=== PATIENT | male | born 1955 | race Caucasian/White ===

== ENCOUNTER → 2023-12-25 04:00 | Outpatient (REF) | payer MEDICARE, OTHER, SELFPAY | LOC: DHSLP 04:00 | PROVIDERS: ATTENDING PHYSICIAN Internal Medicine | DX: G47.33 Obstructive sleep apnea (adult) (pediatric) (principal) | CPT/HCPCS: 95800 ==

== ENCOUNTER 2025-05-27 09:17 | Inpatient (IN) | payer MEDICARE, OTHER, SELFPAY ==
[2025-05-26 23:50] VITALS: BP 157/100
[2025-05-27] VITALS (38 sets, daily range): BP systolic 98–142; BP diastolic 55–99; BMI 34.9; BMI 32.3; BMI 32.4
[2025-05-27] MEDS: CARDIZEM 125 IV (00:22)
[2025-05-27] MEDS: CARDIZEM 20 MG IV (00:22)
[2025-05-27 00:29] LABS: % Basophils 0.3 % (0-2); % Eosinophils 1.5 % (0-6); % Immature Granulocytes 1.6 % (0-0.5); % Lymphocytes 21.9 % (20.5-51.1); % Monocytes 6.7 % (1.7-9.3); Absolute Eosinophils 0.2 10^3/uL (0-0.7); Absolute Immature Granulocytes 0.2 10^3/uL (0-0.05); Absolute Lymphocytes 2.8 10^3/uL (1.2-3.4); Absolute Monocytes 0.9 10^3/uL (0.1-0.6); Absolute Neutrophils 8.8 10^3/uL (1.4-6.5); Hematocrit 45.5 % (39.0-52.0); Hemoglobin 14.8 g/dL (13.0-18.0); Mean Corp Hgb Conc. 32.5 g/dL (33.0-37.0); Mean Corpuscular Hgb 24.7 pg (27.0-31.0); Mean Corpuscular Volume 76.1 fL (80.0-94.0); Nucleated Red Blood Cells % 0 % (-); Platelet Count 289 10^3/uL (130-400); Red Blood Cell Count 5.98 10^6/uL (4.70-6.10); Red Cell Dist. Width 18.6 % (11.5-14.5); White Blood Cell Count 12.9 10^3/uL (4.8-10.8)
[2025-05-27 00:44] LABS: ALT (SGPT) 30 U/L (0-50); AST (SGOT) 37 U/L (17-59); Albumin 4.6 g/dl (3.5-5.0); Alkaline Phosphatase 78 U/L (38-126); Blood Urea Nitrogen 18 mg/dl (9-20); Calcium 9.5 mg/dl (8.4-10.2); Carbon Dioxide 20 mmol/L (22-30); Chloride 108 mmol/L (98-107); Glucose 143 mg/dl (70-99); Potassium 4.1 mmol/L (3.5-5.1); Sodium 139 mmol/L (135-145); Total Bilirubin 0.8 mg/dl (0.2-1.3); Total Protein 7.3 g/dl (6.3-8.2); eGFR > 60.00
[2025-05-27 00:56] LABS: NT-proBNP 472 pg/ml; Troponin I 0.027 ng/ml
[2025-05-27 01:13] LABS: TSH 6.88 uIU/ml (0.47-4.68)
[2025-05-27] MEDS: CARDIZEM 25 MG IV (01:46)
--- NOTE | 2025-05-27 02:49 | ED.GENMED ---
History of Present Illness
General
Chief Complaint: Breathing Problem
Source: patient and family
Exam Limitations: none
Time Seen by Provider: 05/27/25 00:19
Nursing documentation reviewed up to this point in time: agreed with
History of Present Illness
History of Present Illness:
This is a 70-year-old gentleman who has history of CAD, prior history of PTCA with stent, history of hypertension, hyperlipidemia, COPD. History of AAA currently being monitored with most recent ultrasound February of this year reportedly measuring
4.6 cm.
He and his recently returned tonight from a trip to [place]. They traveled by train and bus. He returned around 9:30 PM and shortly after returning home he developed some shortness of breath accompanied with mid upper chest discomfort radiating
to his anterior neck. No history of similar episodes in the past.
He denies leg pain or swelling. No cough, no weakness nor numbness.
Upon arrival to the ED EKG shows A-fib with rapid ventricular response. Patient has been told that he occasionally has an irregular heartbeat but no definitive previous episodes of atrial fibrillation.
He denies alcohol use.
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 Spicer. Next appointment due June of this year.
Past History
Past History
ED Past Medical History: CAD, COPD, HTN, Hypercholesterolemia and Other (Abdominal aortic aneurysm being monitored with ultrasounds. 4.6 cm February 2025); Negative IDDM or NIDDM
ED Past Surgical History: Cardiac (PTCA with stent 2011) and Orthopedic
Social History
Tobacco: Former smoker (Quit [phone])
Alcohol: Occasional
Drug: None
Personal:
Living: with family
Employment: Retired
Family History
Family History: Other (Noncontributory)
Phy Exam
Physical Exam
Physical Exam:
GENERAL: Alert , in no apparent distress
EYE: pupils equal and reactive
NECK: Supple, no significant adenopathy.
ENT: o/p clr, mmm.
CARDIAC: Irregularly irregular, tachycardic
LUNGS: Clear breath sounds bilaterally, no acute respiratory distress,
ABDOMEN: Soft, without focal tenderness, no r/g, no cvat
NEUROLOGICAL: Alert and oriented, no focal neuro deficits
SKIN: Warm and dry, skin intact.
MUSCULOSKELETAL: No edema, well perfused.
PSYCH: Normal and appropriate interaction.
Scores
Heart Failure Risk
Heart Failure Risk Score: Not Applicable
Course
Orders/Labs/Results
Orders:
Orders
05/26/25 23:43
Troponin I Urgent
05/27/25 00:17
Complete Blood Count/With Diff Urgent
Comprehensive Metabolic Panel Urgent
Free T4 Urgent
Comment: ADDED
NT-proBNP Urgent
TSH Urgent
05/27/25 00:20
Diltiazem 125 mg/125 ml Nss [Cardizem] 125 mg in 125 ml .ROUTE .STK-MED
Diltiazem 125 mg/125 ml Nss [Cardizem] 125 mg in 125 ml IV NOW
Initial dose in mg/hr, then titrate:: 10
Titrate to keep:: Heart rate 80-100 bpm
Titrate by mg/hr:: 5 mg/hr
Frequency of titrations (minutes):: 15
Maximum dose in mg/hr:: 15
Diltiazem HCl [Cardizem] 20 mg IV NOW STA
Diltiazem HCl [Cardizem] 25 mg .ROUTE .STK-MED ONE
05/27/25 01:35
Add On- LAB Urgent
Tests Added?: free T4
05/27/25 01:37
Diltiazem HCl [Cardizem] 25 mg .ROUTE .STK-MED ONE
05/27/25 01:45
Diltiazem HCl [Cardizem] 25 mg IV NOW STA
05/27/25 03:08
Troponin I Urgent
05/27/25 04:09
0.9% Sodium Chloride 500 ml [Nss] 500 ml IV BOLUS
05/27/25 04:18
Propofol [Diprivan] 20 ml .ROUTE .STK-MED
05/27/25 05:06
Add On- LAB Urgent
Tests Added?: free t4
05/27/25 05:07
EKG [Electrocardiogram (*1)] Urgent
Reason for Study: Palpitations
Other Reason for Exam: post conversion from a fib
EKG- Treatment ONCE
05/27/25 05:18
Troponin I Urgent
05/27/25 06:00
0.9% Sodium Chloride 500 ml [Nss] 500 ml IV Wide Open mls/hr
Abnormal Lab Results
05/27/25 05/27/25 05/27/25
00:17 03:08 05:18
WBC 12.9 H 10^3/uL
(4.8-10.8)
MCV 76.1 L fL
(80.0-94.0)
MCH 24.7 L pg
(27.0-31.0)
MCHC 32.5 L g/dL
(33.0-37.0)
RDW 18.6 H %
(11.5-14.5)
Abs Immat Gran (auto) 0.2 H 10^3/uL
(0-0.05)
Absolute Neuts (auto) 8.8 H 10^3/uL
(1.4-6.5)
Absolute Monos (auto) 0.9 H 10^3/uL
(0.1-0.6)
Immature Gran % 1.6 H %
(0-0.5)
Chloride 108 H mmol/L
(98-107)
Carbon Dioxide 20 L mmol/L
(22-30)
Glucose 143 H mg/dl
(70-99)
Troponin I 0.077 H* D ng/ml 0.159 H* D ng/ml
TSH 6.88 H uIU/ml
(0.47-4.68)
05/27/25 00:17
05/27/25 00:17
Vital Signs
Initial and Last Documented VS:
Initial Vital Signs
Temp Pulse Resp BP Pulse Ox
98.4 F 157 18 157/100 98
05/26/25 23:50 05/26/25 23:50 05/26/25 23:50 05/26/25 23:50 05/26/25 23:50
Last Documented Vital Signs
Temp Pulse Resp BP Pulse Ox
98.4 F 44 16 132/75 94
05/26/25 23:50 05/27/25 06:15 05/27/25 06:15 05/27/25 06:15 05/27/25 06:15
MDM/Problems Addressed
Differential Diagnosis Includes:
Patient presents with PAF with rapid ventricular response, symptomatic with shortness of breath, substernal chest discomfort radiating to his anterior neck.
Overall well in appearance, hemodynamically stable.
Concern for coronary ischemia related to A-fib with rapid ventricular response.
Lungs are clear to auscultation, CHF is unlikely.
Symptoms appear acute in nature, no history of thromboembolism, No leg pain or swelling thus PE is unlikely.
Labs are pending including troponin. Will add TSH, BNP.
Will initiate IV Cardizem bolus and drip for rate control.
To consider cardioversion if patient does not spontaneously convert to normal sinus rhythm.
*Pulse Oximetry
SaO2: 91
Oxygen Mode of Delivery: Room air
Patient hypoxic: no
*EKG
Interpreted by ED Provider?: Yes
Interpretation: abnormal
Comparison EKG: changes noted (Atrial fibrillation with rapid ventricular response is new compared to previous EKG July 2023 showing normal sinus rhythm)
Rate: tachycardiac
Rhythm: a-fib
[place]: normal axis
Interval: normal QT interval
QRS Pattern: normal QRS
Ischemia: non-specific ST changes (Minimal ST depression anterolaterally)
*Rewrite Editor Interpretation
Rate: tachycardiac
Interpretation: abnormal
Rhythm: a-fib
*Critical Care Note
Total Time (30-74mins, 75-104mins- exclusive of procedures): 40
comment:
Critical care statement: A total of 40 minutes of critical care time was provided for this patient. This includes management of unstable vital signs, evaluation of the patient at bedside, reviewing the patient's pertinent medical records, discussion
with consultants, review of old EKGs and review of pertinent medical records. This time with separate from time utilized to perform the aforementioned documented procedures
Update Note
Update Note:
Chest pain improved with improvement in A-fib rate but atrial fibrillation has persisted despite IV Cardizem titration and repeat bolus.
Initial plan was for electrical cardioversion but patient has spontaneously converted prior to this procedure. IV Cardizem promptly discontinued.
He remains in sinus bradycardia. Hemodynamically stable and no further chest discomfort.
Troponin has trended up from 0.027 to 0.077. Awaiting repeat troponin and will continue to monitor.
TSH minimally elevated 6.88 but free T4 is normal. BNP is normal.
06:40
Troponin continues to trend up, 0.159. Concern for ACS versus rate related uptrend in troponin.
Due to continued rise in troponin will admit to hospital service and consult cardiology.
Patient remains in sinus bradycardia. Remains hemodynamically stable and chest pain-free since spontaneously converting.
ED Attending Note
-
Portions of this chart may have been created with voice recognition software.� Occasional wrong word or��sound alike� substitutions may have occurred due to the inherent limitations of voice recognition software.
Discharge Plan
Departure
Patient Disposition: Admit
Date of Disposition: 05/27/25
Time of Disposition: 07:08
Admit to: Telemetry
Presentation/result/management discussed w/ accepting MD/DO: Hospitalist
Discharge Problem:
New onset A-fib with RVR, ACS (acute coronary syndrome)
Prescriptions:
No Action
lisinopril 10 MG tablet
10 mg PO DAILY
nitroglycerin 0.4 MG tablet, sublingual
0.4 mg sublingual [id number] PRN (Reason: chest pain)
multivitamin [Multi-Day] 1 EACH tablet
1 ea PO DAILY
atorvastatin 20 MG tablet
20 mg PO QPM
trazodone 50 mg Tablet
25 mg PO HS
aspirin 81 mg Tablet
81 mg PO DAILY
coenzyme Q10 [CoQ-10] 100 mg Capsule
100 mg PO DAILY
cholecalciferol (vitamin D3) [Vitamin D3] 25 mcg (1,000 unit) Tablet
25 mcg PO DAILY
mecobalamin (vitamin B12) [B12 Active] 1,000 mcg Tablet,Chewable
1,000 mcg PO DAILY
omeprazole 40 mg capsule,delayed release(DR/EC)
40 mg PO BID Qty: 60 0RF
Brestry
2 puff inhalation BID
Referrals:
Nancy Martell CRNP [Family Provider, Family Practice]
Interventions
Interventions:
*Risk Screen - Suicide Last Done: 05/26/25 23:50
*General Assessment Last Done: 05/26/25 23:50
*Neglect/Abuse Screening Last Done: 05/26/25 23:50
*ED- Fall Risk Assessment Last Done: 05/27/25 01:07
*ED COVID-19 Vaccine History Last Done: 05/27/25 01:07
ED- Cardiac Assessment Last Done: 05/27/25 03:40
ED- Pulmonary Assessment Last Done: 05/27/25 03:40
Discharge Date and Time
Print Language: SAMI
[2025-05-27 03:46] LABS: Troponin I 0.077 ng/ml
[2025-05-27] MEDS: NSS 500 IV ×2 (04:10→04:50)
[2025-05-27 05:58] LABS: Troponin I 0.159 ng/ml
--- NOTE | 2025-05-27 08:03 | HPS.HSE ---
Family Physician
-
Family Physician: Nancy Martell
Chief Complaint
-
Dyspnea
History of Present Illness
Patient is a 70-year-old male with past medical history of coronary artery disease with history of stent, essential hypertension, hyperlipidemia, COPD, history of herniated disc, history of right THR came to ER with new onset of dyspnea and some
chest discomfort. Patient was traveling back to home and was on train/bus ride for few hours. By the time patient was back home noticed new onset of dyspnea and some associated shortness of breath. Some dry cough no fever. No palpitations or
dizziness noted. Patient came to ER for further evaluation where patient was noted to be in A-fib which patient later converted to sinus bradycardia with IV diltiazem push. During my visit patient is chest pain free. Not requiring any oxygen. No
abdominal or complaints.
Medical History
Past Medical History
Past Medical History: Reports Other
Additional Past Medical History:
coronary artery disease with history of stent, essential hypertension, hyperlipidemia, COPD, history of herniated disc, history of right THR
Past Surgical History: Reports Other
Social History
Tobacco: Non-smoker
Alcohol: Occasional
Drug: None
Personal:
Living: With Family
Family History
Family History: Not pertinent
Allergies / Home Medications
Allergies reflects when Allergies were last updated in [facility].
Home Medications with original date entered in [facility]
Allergy/Medication List:
Allergies
Allergy/AdvReac Type Severity Reaction Status Date / Time
No Known Allergies Allergy Verified 08/02/23 20:17
Home Medications
nitroglycerin 0.4 mg sublingual tablet 0.4 mg sublingual [id number] PRN chest pain 12/12/11
atorvastatin 20 mg tablet 20 mg PO QPM 04/30/16
aspirin 81 mg tablet 81 mg PO DAILY 08/02/23
cholecalciferol (vitamin D3) 25 mcg (1,000 unit) tablet (Vitamin D3) 25 mcg PO DAILY 08/02/23
coenzyme Q10 100 mg capsule (CoQ-10) 100 mg PO DAILY 08/02/23
budesonide 160 mcg-glycopyr 9 mcg-formot 4.8 mcg/actuation HFA inhaler (Breztri Aerosphere) 2 inh inhalation R BID 05/27/25
cyanocobalamin (vitamin B-12) 1,000 mcg tablet 1,000 mcg PO DAILY 05/27/25
losartan 50 mg tablet 50 mg PO DAILY 05/27/25
Review of Systems
-
A 12 point ROS was completed and negative except as noted: Yes
Physical Exam
Vital Signs
Vital Signs
Temp Pulse Resp BP Pulse Ox
98.4 F 44 21 108/63 91
05/26/25 23:50 05/27/25 07:45 05/27/25 07:45 05/27/25 07:45 05/27/25 07:45
Physical Exam
General: Well Nourished and No Apparent Distress
HEENT: Moist mucous membranes and Atraumatic; No Oxygen
Respiratory: Clear
Cardiac: S1/S2 and Regular Rhythm; No Murmur or Rub
GI: Soft, Non Tender, Non Distended and Normal Bowel Sounds; No Organomegaly
Rectal: Deferred by Provider
Musculoskeletal: No Clubbing, No Cyanosis and No Edema
Skin: No Rash
Neuro: Nonfocal/grossly intact
Laboratory Results
-
05/27/25 00:17
05/27/25 00:17
Laboratory Results
Total Bilirubin 0.8 mg/dl (0.2-1.3) 05/27/25 00:17
AST 37 U/L (17-59) 05/27/25 00:17
ALT 30 U/L (0-50) 05/27/25 00:17
Alkaline Phosphatase 78 U/L (38-126) 05/27/25 00:17
Troponin I 0.159 ng/ml H* D 05/27/25 05:18
Impression/Plan
-
1. Paroxysmal atrial fibrillation with RVR -New diagnosis
- No previous reported history of A-fib
- In ER noted on A-fib RVR which converted to sinus bradycardia with cardizem
- With elevated troponin discussed with cardiology and recommended heparin drip for time being
- Admit patient to telemetry for further monitor
- As needed rate control medication if develop recurrence of RVR
2. Elevated troponin
History of CAD with stenting in 2013
- Suspected known ischemic cardiomyopathy related vs type II IA from fast heart rate
- Troponin max of 0.159, follow-up ordered
- EKG reviewed and no significant ST segment changes
- Maintained on aspirin/statin
3. Essential hypertension
-Patient having switched to lisinopril
History of aortic aneurysm
Right THR
Hyperlipidemia
Heparin drip
Full code
Total time spent : 78 mins
I personally saw and examined the patient.
I have reviewed all diagnostic interpretations and treatment plans as written.
Time includes patient management by me, time spent at the patients bedside, time to review lab and imaging results, discussing patient care, documentation in the medical record, and time spent with the family or caregiver and discussing care plan
with RN/Consultants.
[2025-05-27 09:15] LABS: D-Dimer 0.96 ug/mlFEU (0.00-0.50)
--- NOTE | 2025-05-27 10:15 | CON.CAR ---
Addendum entered and electronically signed by Shant Moya MD 05/27/25 15:06:
70 yo male with PMH of CAD, prior Lcx stent 2011, HTN, 4.9 cm AAA presents to ED with chest pain and found to have new A fib with RVR. Converted back to sinus after IV diltiazem. Currently chest pain free. Exam with RRR, no murmurs, no edema. EKG:
Afib with RVR, anterolateral ST depression. TnI 0.159 and trending.
A fib with RVR. Back in sinus. Not on AV dre agent due to sinus bradycardia. Trend tele.
CHADS2-VASC = 3. Heparin for AC for now. Eventual eliquis.
Chest pain. Elevated trop. ST depression EKG with AFIB/RVR. NSTEMI vs Type 2 MD. Trend trop. ASA 324mg, heparin drip. To decide on cath this admission.
Original Note:
Consultation
Consultation Request
Date/Time Consultation Requested: 05/27/25 8a
Date/Time Consultation Performed: 05/27/25 9:45a
Requesting Provider: Dr. Michelle Ann
Performing Provider: NEAL Whitlock for Dr. Moya
Reason for Consultation: new onset Afib, chest pain
Medical History
-
Chief Complaint: chest pain, SOB
History of Present Illness:
Mr. Torrez is a 70 yo male (known to Dr. Garcia at [facility]) with CAD (s/p FEROZ to proxCx with rescue angioplasty of large OM1 11/2011), moderate COPD (followed by Dr. Mai, 4L O2 with exertion), AAA (managed by Dr. Alcantar at [place], measuring
4.9cm in 2023), HTN and NORM with Inspire device, who presents to the ER with c/o chest pain and SOB. Upon arrival he was noted to be in new onset rapid Afib, duration unknown. His chest pain began suddenly lasting for minutes and resolved on its
own when in the ER. He reports always feeling SOB but mildly worse with chest pain. He was treated with IV Diltiazem in the ER and converted to sinus bradycardia. He is admitted to the hospitalist service and we are consulted for chest pain. His
troponin trend 0.027, 0.077, 0.159. Initial EKG Afib with RVR 157, nonspecific ST abn with nonspecific IVCD. He currently denies any chest pain lying in ER bed. He also notes having a dry cough for several months.
Past Medical History
Past Medical History: Other (as above)
Past Surgical History: Other (as above)
Social History
Tobacco: Former Smoker
Personal:
Living: With Family
Family History
Family History: Reviewed & Not Pertinent
Allergies / Home Medications
Allergy/AdvReac Type Severity Reaction Status Date / Time
No Known Allergies Allergy Verified 08/02/23 20:17
�Medication �Instructions �Recorded �Confirmed �Type
lisinopril 10 mg tablet 10 mg PO DAILY 12/12/11 05/27/25 History
nitroglycerin 0.4 mg sublingual 0.4 mg sublingual [id number] PRN 12/12/11 05/27/25 History
tablet chest pain
atorvastatin 20 mg tablet 20 mg PO QPM 04/30/16 05/27/25 History
multivitamin (Multi-Day tablet) 1 ea PO DAILY 04/30/16 05/27/25 History
aspirin 81 mg tablet 81 mg PO DAILY 08/02/23 05/27/25 History
cholecalciferol (vitamin D3) 25 25 mcg PO DAILY 08/02/23 05/27/25 History
mcg (1,000 unit) tablet (Vitamin
D3)
coenzyme Q10 100 mg capsule 100 mg PO DAILY 08/02/23 05/27/25 History
(CoQ-10)
mecobalamin (vitamin B12) 1,000 1,000 mcg PO DAILY 08/02/23 05/27/25 History
mcg chewable tablet (B12 Active)
trazodone 50 mg tablet 25 mg PO HS 08/02/23 05/27/25 History
omeprazole 40 mg capsule,delayed 40 mg PO BID #60 caps 08/03/23 05/27/25 Rx
release
Brestry 2 puff inhalation BID 05/27/25 05/27/25 History
Review of Systems
-
History Source: Patient
All other systems: Negative unless noted
Physical Exam
Vital Signs
Temp Pulse Resp BP Pulse Ox
98.4 F 53 18 134/77 93
05/26/25 23:50 05/27/25 10:00 05/27/25 10:00 05/27/25 10:00 05/27/25 09:45
Lab Results
05/27/25 00:17
05/27/25 00:17
Troponin I 0.159 ng/ml H* D 05/27/25 05:18
[id number] Pept 472 pg/ml 05/27/25 00:17
Physical Exam
General: Well Developed, Well Nourished and No Apparent Distress
HEENT: Normocephalic, Anicteric and Moist Mucous Membranes
Respiratory: Clear, Crackles (faint bibasilar with faint rales bibasilar) and Non Labored Respirations
Cardiac: S1/S2 and Regular Rhythm (bradycardia)
Breast: Deferred by me
GI: Soft, Non Tender, Non Distended and Normal Bowel Sounds
Rectal: Deferred by Provider
Genito-urinary: No Costovertebral Tender
Musculoskeletal: No Clubbing, No Cyanosis and No Edema
Skin: Warm and Dry
Neuro: AO x 3
Hematologic/Lymphatic: No Lymphadenopathy
Psych: Calm
Impression / Plan
-
Chest pain - acute.
- in the setting of new rapid Afib.
- now in SB and chest pain resolved.
- troponin trend to peak, 0.027, 0.077, 0.159.
- initial EKG Afib with RVR 157, nonspecific ST abn with nonspecific IVCD. then SB [address] abnormality.
- IV Heparin.
- d-dimer mildly elevated, per hospitalist.
CAD - FEROZ prox Cx with rescue angioplasty to large OM1 in 2011.
- troponin as above, trend.
- if troponin worsens then will likely need cath.
Afib - new onset, RVR, duration unknown.
- unaware of irregular rhythm, symptoms were chest pain and sob.
- converted to SB on IV Diltiazem which is now off.
- monitor on tele.
- [id number] VASc score is 3, recommend Eliquis.
- IV Heparin for now.
HTN - stable.
- monitor off IV Diltiazem.
HLD - on Lipitor 20mg daily.
- check lipid profile.
AAA - stable at 4.9cm in 2023, followed by Dr. Alcantar at [place].
COPD - moderate, followed by Dr. Mai as outpatient.
- supposed to wear O2 4L with exertion, doesn't always.
- NORM with Inspire device.
Data Reviewed
-
EKG: Tracing Personally Visualized and interpreted
Medical Tests (Nuc Med, Echo etc): Other (cath as above)
Labs: Labs Reviewed by me
[2025-05-27] MEDS: HEPARIN 25000 UNITS/250 ML IV (12:03)
[2025-05-27] MEDS: HEPARIN 4000 UNITS IV (12:03)
--- NOTE | 2025-05-27 13:38 | PTCARENOTE ---
Addendum entered by Geni Stuart RN 05/27/25 14:38:
heparin gtt infusing per protocol. Received verbal order from Dr Moya to obtain PTT and troponin at 1800. Will continue to monitor.
Original Note:
received pt from ED. AOx3, no complaints of pain or discomfort. Independent OOB. SB on tele monitor, VSS. Oriented to room and unit. Call schneider within reach.
[2025-05-27] MEDS: LOW STRENGTH ASPIRIN 324 MG PO (14:18)
[2025-05-27] MEDS: LIPITOR 20 MG PO (17:12)
[2025-05-27 19:23] LABS: APTT 48.6 Sec (23.4-35.0)
[2025-05-27 19:47] LABS: Troponin I 0.239 ng/ml
[2025-05-27] MEDS: PROTONIX 40 MG PO (19:49)
--- NOTE | 2025-05-27 20:15 | PTCARENOTE ---
Received pt @ change of shift. AAOx3, VSS-- sinus jose luis on monitor. Denies chest pain @ this time, but states it 'comes and goes.' Heparin gtt running @ 1200 units/hr through right AC. Discussed plan of care for evening. Pt verbalizes understanding.
Call schneider within reach.
[2025-05-28 02:04] VITALS: BP 135/80
[2025-05-28 02:16] VITALS: BMI 32.4
[2025-05-28 02:25] LABS: Hematocrit 39.9 % (39.0-52.0); Mean Corp Hgb Conc. 32.6 g/dL (33.0-37.0); Mean Corpuscular Hgb 24.7 pg (27.0-31.0); Mean Corpuscular Volume 75.9 fL (80.0-94.0); Mean Platelet Volume 8.8 fL (7.4-10.4); Platelet Count 222 10^3/uL (130-400); Red Blood Cell Count 5.26 10^6/uL (4.70-6.10); Red Cell Dist. Width 17.7 % (11.5-14.5); White Blood Cell Count 9.4 10^3/uL (4.8-10.8)
[2025-05-28 02:32] LABS: APTT 57.7 Sec (23.4-35.0)
[2025-05-28 02:43] LABS: Blood Urea Nitrogen 16 mg/dl (9-20); Calcium 8.6 mg/dl (8.4-10.2); Carbon Dioxide 21 mmol/L (22-30); Chloride 110 mmol/L (98-107); Estimated Creatinine Clearance 80 ml/min; Glucose 106 mg/dl (70-99); Potassium 4.2 mmol/L (3.5-5.1); Sodium 138 mmol/L (135-145); eGFR > 60.00
[2025-05-28 02:57] LABS: Troponin I 0.211 ng/ml
[2025-05-28 07:48] VITALS: BP 141/98
[2025-05-28] MEDS: COZAAR 50 MG PO (07:53)
[2025-05-28] MEDS: PROTONIX 40 MG PO ×2 (07:53→19:42)
[2025-05-28] MEDS: LOW STRENGTH ASPIRIN 81 MG PO (07:54)
[2025-05-28] MEDS: HEPARIN 25000 UNITS/250 ML IV ×2 (07:57→23:31)
--- NOTE | 2025-05-28 09:05 | W.PN.CD ---
Today's Communication / Plan
-
ASA, heparin drip (which requires intensive monitoring)
plan for cath and echo in AM
Impression / Plan
-
ACS/NSTEMI
-threat to life
- presented with chest pain and A fib/RVR, new
-now admits that he has been having sxs for over one week, and did not want to tell his family while he was on vacation
-trop peak 0.239; anterolateral ST depression when in rapid A fib
-ASA, heparin drip (which requires intensive monitoring)
-no beta etienne due to bradycardia
-plan for cath and echo in AM
CAD - FEROZ prox Cx with rescue angioplasty to large OM1 in 2011.
- plan as above
Afib - new onset, RVR, duration unknown. Now back in sinus
- unaware of irregular rhythm, symptoms were chest pain and sob.
- converted to SB on IV Diltiazem which is now off.
- monitor on tele. no AV dre agents due to bradycardia
- [id number] VASc score is 3, recommend Eliquis post cath. currently on heparin drip for ACS
HTN - stable.
- monitor on losartan
HLD - on Lipitor 20mg daily.
- check lipid profile. Goal LDL under 55
AAA - stable at 4.9cm in 2023, followed by Dr. Alcantar at [place].
COPD - moderate, followed by Dr. Mai as outpatient.
- supposed to wear O2 4L with exertion, doesn't always.
- NORM with Inspire device.
Physical Exam
Vital Signs/Labs
Vital Signs
Temp Pulse Resp BP Pulse Ox
97.4 F 54 20 141/98 93
05/28/25 07:50 05/28/25 07:48 05/28/25 07:50 05/28/25 07:48 05/28/25 08:26
05/27/25 05/28/25 05/29/25
06:59 06:59 06:59
Actual Weight 104.2 kg 96.5 kg
05/28/25 02:12
05/28/25 02:12
APTT 57.7 Sec (23.4-35.0) H 05/28/25 02:12
TSH 6.88 uIU/ml (0.47-4.68) H 05/27/25 00:17
Free T4 1.30 ng/dl (0.78-2.19) 05/27/25 00:17
05/27/25
00:17
Tsy-K-Tkpohxbcxkw Pept 472
LAB Results
05/27/25 05/27/25 05/27/25
00:17 03:08 05:18
Troponin I 0.027 0.077 H* D 0.159 H* D
05/27/25 05/28/25
19:06 02:12
Troponin I 0.239 H* 0.211 H*
Physical Exam
Constitutional: No acute distress and Comfortable
EENT: Moist mucous membranes
Cardiovascular: Rhythm & rate is regular, Pedal edema is absent, JVD pressure is normal and Systolic murmur absent
Respiratory: Respiratory effort normal and Lungs clear to auscul.
Neuro/Psych: AO x 3
Data Reviewed
-
Date of Service: May 28, 2025
EKG: Other (Tele: SB, PVC's)
Labs: Labs Reviewed by me
--- NOTE | 2025-05-28 09:32 | PTCARENOTE ---
Rec'd pt at handoff. Tele- SB. HR 45-60. Assessment completed as documented. Heparin gtt infusing at 14 ml/hr. Assessment completed as documented. Pt has no complaints CP/discomfort at this time. Plan of care reviewed w/ pt and verbalizes
understanding. Pt aware of NPO status at midnight for cath tomorrow. Currently in bed; call jennie w/in reach.
[2025-05-28 10:01] LABS: APTT 71.1 Sec (23.4-35.0)
[2025-05-28 11:11] VITALS: BP 134/77
--- NOTE | 2025-05-28 12:27 | W.PN.HOSP.TC ---
Today's Communication/Plan
-
for [facility] tomorrow
continue other care
heparin drip/AC per cards
Assessment / Plan
Assessment / Plan
1. Paroxysmal atrial fibrillation with RVR -New diagnosis
- No previous reported history of A-fib
- In ER noted on A-fib RVR which converted to sinus bradycardia with cardizem
- Shukri vasc of 3
- With elevated troponin discussed with cardiology and recommended heparin drip for time being
- Admit patient to telemetry for further monitor
- As needed rate control medication if develop recurrence of RVR
2. Elevated troponin, suspected ACS
History of CAD with circ stenting in 2013
- Troponin max of 0.24
- EKG reviewed and no significant ST segment changes
- Maintained on aspirin/statin
- Cardiology planning to do left heart catheterization tomorrow
3. Essential hypertension
-Patient having switched to lisinopril
History of abd aortic aneurysm - 4.9cm ,stable on last OP check
Right THR
Hyperlipidemia
Heparin drip
Full code
Anticipated Discharge: Within 24 hours
Subjective/Interval History
-
Date of Service: May 28, 2025
No further episodes of palpitations/chest discomfort overnight
No telemetry events noted
Objective Data
-
Labs:
Laboratory Results
05/28/25 05/28/25 05/28/25
02:12 09:28 16:15
WBC 9.4
Hgb 13.0
Hct 39.9
Plt Count 222 D
APTT 57.7 H 71.1 H Pending
Sodium 138
Potassium 4.2
Chloride 110 H
Carbon Dioxide 21 L
BUN 16
Creatinine 1.0
Glucose 106 H
Calcium 8.6
Vital Signs:
Vital Signs
Temp Pulse Resp BP Pulse Ox
97.8 F 72 20 134/77 92
05/28/25 11:11 05/28/25 11:30 05/28/25 11:11 05/28/25 11:11 05/28/25 11:11
I&O
05/27/25 05/28/25 05/29/25
06:59 06:59 06:59
Intake Total 400 / 400
Balance 400 / 400
Review of Systems
-
Respiratory: Reports No Symptoms
Cardiac: Reports No Symptoms
Abdomen/GI: Reports No Symptoms
Physical Exam
-
General: No Apparent Distress and Comfortable
HEENT: Negative Oxygen
Respiratory: Clear to Auscultation
Cardiac: Regular Rhythm and S1/S2; Negative Murmur or Rub
GI: Soft, Nontender and Nondistended
Musculoskeletal: No Edema
Neuro: Awake, Alert, Oriented, No Motor Deficits and Nonfocal/Grossly Intact
Psych: Calm
[2025-05-28 15:06] VITALS: BP 147/71
[2025-05-28 16:54] LABS: APTT 74.6 Sec (23.4-35.0)
[2025-05-28] MEDS: LIPITOR 20 MG PO (17:00)
[2025-05-28 18:35] VITALS: BP 145/71
[2025-05-28 22:46] VITALS: BP 147/78
[2025-05-28 23:15] LABS: APTT 79.4 Sec (23.4-35.0)
--- NOTE | 2025-05-28 23:54 | PTCARENOTE ---
Received pt @ change of shift. AAOx3, VSS-- NSR/SB on monitor. Heparin gtt running @ 1500 units/hr through right AC. Denies any chest pain @ this time. Discussed plan of care for evening, being NPO @ midnight for cath tomorrow. Pt verbalizes
understanding. Call schneider within reach.
[2025-05-29] VITALS (10 sets, daily range): BP systolic 137–162; BP diastolic 65–85; BMI 32.2
[2025-05-29 05:52] LABS: Hematocrit 42.6 % (39.0-52.0); Hemoglobin 13.7 g/dL (13.0-18.0); Mean Corp Hgb Conc. 32.2 g/dL (33.0-37.0); Mean Corpuscular Hgb 24.5 pg (27.0-31.0); Mean Corpuscular Volume 76.1 fL (80.0-94.0); Mean Platelet Volume 9.1 fL (7.4-10.4); Platelet Count 235 10^3/uL (130-400); Red Cell Dist. Width 17.7 % (11.5-14.5); White Blood Cell Count 8.8 10^3/uL (4.8-10.8)
[2025-05-29 06:08] LABS: APTT 125.9 Sec (23.4-35.0)
[2025-05-29 06:17] LABS: Blood Urea Nitrogen 15 mg/dl (9-20); Calcium 8.7 mg/dl (8.4-10.2); Carbon Dioxide 21 mmol/L (22-30); Chloride 109 mmol/L (98-107); Estimated Creatinine Clearance 79 ml/min; Glucose 112 mg/dl (70-99); HDL Cholesterol 39 mg/dl; LDL Cholesterol, Calculated 62 mg/dl; Potassium 4.1 mmol/L (3.5-5.1); Sodium 137 mmol/L (135-145); Total Cholesterol 137 mg/dl (50-199); Triglyceride 184 mg/dl (10-149); Very Low Density Lipoprotein 36 mg/dl (0-30); eGFR > 60.00
[2025-05-29] MEDS: PROTONIX 40 MG PO (08:29)
[2025-05-29] MEDS: COZAAR 50 MG PO (08:29)
[2025-05-29] MEDS: LOW STRENGTH ASPIRIN 81 MG PO (08:29)
[2025-05-29] MEDS: NSS 1000 IV (10:30)
--- NOTE | 2025-05-29 10:53 | ITS.CL.PN ---
Grant Officer - Procedure Note
Procedure
Procedure Note:
CARDIAC CATHETERIZATION REPORT
Date of Procedure: 05/29/2025
Referring: Dr. Shant Moya MD, PhD
Indication: NSTEMI
PROCEDURE(S)
1. left heart catheterization
2. coronary angiography
ACCESS: 6F right radial artery (closure: radial band)
CATHETERS
1. 6F JR4
2. 6F JL3.5
MODERATE SEDATION: 25 minutes of moderate sedation was utilized. An independent medical physics professor was present to assist with and help manage the patient's level of consciousness and physiologic status.
HEMODYNAMIC DATA
LV 129/8 (EDP 17) mmHg
AO 137/67 (mean 93) mmHg
CORONARY ANGIOGRAPHY
Dominance: Right
LM: Short, normal
LAD: Large vessel giving rise to a moderate caliber D1, small D2, and small D3 before wrapping around the apex. There are mild luminal irregularities only.
LCx: Large vessel giving rise to a moderate caliber OM1 and large branching OM 2. There is a widely patent stent spanning the takeoff of OM1. The ostium of OM1 (previously balloon rescued during the PCI), has mild narrowing improved from prior
angiography in 2011.
RCA: Moderate caliber vessel giving rise to a small RPDA and small RPL branch. There is a 50% ostial stenosis with no pressure dampening. There is mild diffuse disease throughout the proximal vessel and trivial luminal irregularities distally.
RADIATION: dose 313 mGy; DAP 26 Gy*cm2; fluoroscopy time 3.1 min
CONCLUSIONS
1. Nonobstructive coronary artery disease as described.
2. Mildly elevated LV filling pressure and no aortic stenosis
RECOMMENDATIONS
1. Continue aggressive secondary prevention of coronary artery disease
2. Initiate oral anticoagulation for A-fib this evening
Copy to: Dr. Letha Garcia MD (hem inspector); Nancy Martell NP (PCP)
Signed: Mariano Velazquez MD, PhD
--- NOTE | 2025-05-29 12:04 | PTCARENOTE ---
Pt w/ R radial hemostasis band on. No bleeding/hematoma noted. Activity restrictions reviewed w/ pt and verbalizes understanding. Pt has no complaints pain/discomfort/sob. Tele- SB. HR 45-50s. Currently in bed; call jennie w/in reach.
--- NOTE | 2025-05-29 14:16 | W.PN.CD ---
Addendum entered and electronically signed by Mariano Velazquez MD 05/29/25 14:20:
TTE 05/29/2025:
LV ejection fraction is 65-70%. No regional wall motion abnormalities are seen.
Normal right ventricular size and function.
Mild to moderate mitral regurgitation.
Aortic sclerosis without stenosis.
Original Note:
Today's Communication / Plan
-
cath without obstructive CAD
cont. oral anticoagulation with eliquis
follow up with outpatient longwall shearer operator Dr. Letha Garcia
Impression / Plan
-
ACS/NSTEMI, likely Type II in setting of Afib
-threat to life
-presented with chest pain and A fib/RVR, new
-now admits that he has been having sxs for over one week, and did not want to tell his family while he was on vacation
-trop peak 0.239; anterolateral ST depression when in rapid A fib
-ASA, heparin drip (which requires intensive monitoring)
-no beta etienne due to bradycardia
-cath demonstrates non-obstructive CAD with patent prior LCx stent
CAD - FEROZ prox Cx with rescue angioplasty to large OM1 in 2011.
-cath without obstructive CAD
Afib - new onset, RVR, duration unknown. Now back in sinus
- unaware of irregular rhythm, symptoms were chest pain and sob.
- converted to SB on IV Diltiazem which is now off.
- monitor on tele. no AV dre agents due to bradycardia
- [id number] VASc score is 3, recommend Eliquis post cath. currently on heparin drip for ACS
HTN - stable.
- monitor on losartan
HLD - on Lipitor 20mg daily.
- check lipid profile. Goal LDL under 55
AAA - stable at 4.9cm in 2023, followed by Dr. Alcantar at [place].
COPD - moderate, followed by Dr. Mai as outpatient.
- supposed to wear O2 4L with exertion, doesn't always.
- NORM with Inspire device.
Physical Exam
Vital Signs/Labs
Vital Signs
Temp Pulse Resp BP Pulse Ox
36.2 C 54 16 140/78 93
05/29/25 11:19 05/29/25 14:00 05/29/25 11:19 05/29/25 13:47 05/29/25 12:15
05/28/25 05/29/25 05/30/25
06:59 06:59 06:59
Actual Weight 96.5 kg 96.1 kg
05/29/25 05:39
05/29/25 05:39
APTT Cancelled 05/29/25 12:20
Triglycerides 184 mg/dl (10-149) H 05/29/25 05:39
LDL Cholesterol, Calc 62 mg/dl 05/29/25 05:39
VLDL Cholesterol, Calc 36 mg/dl (0-30) H 05/29/25 05:39
HDL Cholesterol 39 mg/dl 05/29/25 05:39
TSH 6.88 uIU/ml (0.47-4.68) H 05/27/25 00:17
Free T4 1.30 ng/dl (0.78-2.19) 05/27/25 00:17
05/27/25
00:17
Ofi-N-[id number] Pept 472
LAB Results
05/27/25 05/27/25 05/27/25
00:17 03:08 05:18
Troponin I 0.027 0.077 H* D 0.159 H* D
05/27/25 05/28/25
19:06 02:12
Troponin I 0.239 H* 0.211 H*
Physical Exam
Constitutional: Comfortable
Cardiovascular: Rhythm & rate is regular
Respiratory: Respiratory effort normal
Neuro/Psych: AO x 3
Data Reviewed
-
Date of Service: May 29, 2025
Medical Decision Making: Reviewed Test Results
EKG: Tracing Personally Visualized and interpreted
Labs: Labs Reviewed by me
--- NOTE | 2025-05-29 14:21 | W.DCSUMMARY ---
Addendum entered and electronically signed by Onur Boston MD 06/03/25 12:35:
Type II in setting of Afib
Original Note:
Discharge Summary
Discharge Data
Date of Admission: 05/27/25
Date of Discharge: 05/29/25
-
Pending Results: No
Hospital Course
70-year-old male with past medical history of coronary artery disease with history of stent, essential hypertension, hyperlipidemia, COPD, history of herniated disc, history of right THR
Presented with new onset dyspnea and chest discomfort. Found to be in atrial fibrillation for which then he converted to sinus bradycardia with IV Cardizem. As he remains bradycardic no recommendations of rate control required. Additionally as in
sinus rhythm no indications for antiarrhythmics at this time.Was found to have a elevated troponin therefore cardiology was also consulted. Plan for left heart catheterization that was completed along with 2D echocardiogram. Please see results
below. He will need to follow-up with outpatient primary director translation Dr. Hager within the next 1 to 2 weeks. Please make an appointment with her. Will also need to follow-up with PCP in the next 1 to 2 weeks.
LHC
CONCLUSIONS
1. Nonobstructive coronary artery disease as described.
2. Mildly elevated LV filling pressure and no aortic stenosis
2d Echo
CONCLUSIONS
LV ejection fraction is 65-70%. No regional wall motion abnormalities are seen.
Normal right ventricular size and function.
Mild to moderate mitral regurgitation.
Aortic sclerosis without stenosis.
No prior study available for comparison.
Was seen and examined on the day of discharge. No new complaints. No acute overnight events.
Bradycardic on exam. Without dizziness chest pressure or chest pain. Evaluated post left heart catheterization.
NAD
Scleral Anicteric
MMM
No JVD
CTABL
Bradycardic but regular, S1/S2
Soft, NT, ND, BS+
Warm, Dry
AAOx3
Calm
More than 30 minutes spent in discharge including
Final examination of the patient
Summarizing hospital stay
Instructions for continuing care to all relevant caregivers
Preparation of discharge records, prescriptions, and referral forms
Total time spent (in minutes): 33mins
Discharge Plan
-
Patient Disposition: Home (Routine Discharge)
Discharge Diagnosis/Procedures: Cardiac catheterization (05/29)
Condition: Good
Diet: As tolerated, Low Fat, Low Cholesterol and No added salt
Activity: As tolerated
Activity Restrictions/Additional Instructions:
Presented with new onset dyspnea and chest discomfort. Found to be in atrial fibrillation for which then he converted to sinus bradycardia with IV Cardizem. Was found to have a elevated troponin therefore cardiology was also consulted. Plan for
left heart catheterization that was completed along with 2D echocardiogram. Please see results below. He will need to follow-up with outpatient primary director translation Dr. Hager within the next 1 to 2 weeks. Please make an appointment with her.
Will also need to follow-up with PCP in the next 1 to 2 weeks.
LHC
CONCLUSIONS
1. Nonobstructive coronary artery disease as described.
2. Mildly elevated LV filling pressure and no aortic stenosis
2d Echo
CONCLUSIONS
LV ejection fraction is 65-70%. No regional wall motion abnormalities are seen.
Normal right ventricular size and function.
Mild to moderate mitral regurgitation.
Aortic sclerosis without stenosis.
No prior study available for comparison.
Stand Alone Forms: DC Instructions- Cath/EP Lab
Referrals:
Nancy Martell CRNP [Family Provider, Family Practice]
Gamaliel Kennedy,Letha Sen MD [Non-Admitting Privileges, Cardiology] - in one to two weeks
Additional Discharge Medication Instructions: start eliquis tonight
Prescriptions:
New
losartan 50 mg Tablet
50 mg PO DAILY Qty: 30 0RF
Eliquis 5 mg Tablet
5 mg PO BID Qty: 60 0RF
Continued
nitroglycerin 0.4 MG tablet, sublingual
0.4 mg sublingual [id number] PRN (Reason: chest pain)
atorvastatin 20 MG tablet
20 mg PO QPM
aspirin 81 mg Tablet
81 mg PO DAILY
coenzyme Q10 [CoQ-10] 100 mg Capsule
100 mg PO DAILY
cholecalciferol (vitamin D3) [Vitamin D3] 25 mcg (1,000 unit) Tablet
25 mcg PO DAILY
Breztri Aerosphere 160-9-4.8 mcg/actuation Hfa Aerosol Inhaler
2 inh INHALATION R BID
losartan 50 mg Tablet
50 mg PO DAILY
cyanocobalamin (vitamin B-12) 1,000 mcg Tablet
1,000 mcg PO DAILY
trazodone 100 mg Tablet
50 mg PO HSPRN PRN (Reason: sleep)
therapeutic multivitamin Tablet
1 tab PO DAILY
omeprazole 20 mg Tablet,Delayed Release (Dr/Ec)
20 mg PO DAILY
Discharge Orders:
Discharge Patient (As Directed); Ordered 05/29/25
Ordered By: Onur Boston
Discharge Date and Time
Print Language: CITIZEN OF [place]
--- NOTE | 2025-05-29 14:45 | PTCARENOTE ---
IV and tele removed. Discharge instructions reviewed w/ pt and verbalizes understanding. Belongings collected and sent home w/ pt. Escorted via WC and staff assist to home.
--- NOTE | 2025-05-29 17:18 | CM ---
pt prev indep, lives with his in a 2 story home. no dc planning needs noted. pt dc'ed to home.
[2025-05-29 18:30] LABS: Hepatitis C Antibody Negative (Negative)
--- NOTE | 2025-05-31 08:54 | PN.CDI ---
CDI
- -
CDI:
Physician Documentation Request
Admit Date: 05/27/25 09:17
Dear Doctor Darvin,
Please review the following and provide your response in the progress notes.
Clinical Indicators:
Pt admitted for Paroxysmal atrial fibrillation with RVR -New diagnosis and elevated troponin.
05/28 Progress note: ' Elevated troponin, suspected ACS...Cardiology planning to do left heart catheterization tomorrow.
05/29 cardiac catheterization conclusions:
1. Nonobstructive coronary artery disease as described.
2. Mildly elevated LV filling pressure and no aortic stenosis
05/29 Cardiology: ' ACS/NSTEMI, likely Type II in setting of Afib...-now admits that he has been having sxs for over one week, and did not want to tell his family while he was on vacation...
-trop peak 0.239; anterolateral ST depression when in rapid A fib-cath demonstrates non-obstructive CAD with patent prior LCx stent
Please clarify the following regarding the documented myocardial infarction
Type II MA
NSTEMI
ACS
Other
Extent of MA Onset
STEMI - indicate the location and vessel involved Within the past 4 weeks (28 days)
NSTEMI - subendocardial, nontransmural Greater than 4 weeks ago
Unable to determine Subsequent (defined as new MA within 4 weeks of previous MA)
Old or healed MA with no current concerns or complications
Unable to determine
Type of MA Subsequent MA
Type I Initial MA was a Type I MA
Type II (due to demand ischemia) Initial MA was a Type II MA
Other (Type 3, 4a, 4b, 4c, 5) please specify Initial MA was another type (please specify)
Unable to determine Unable to determine the type of initial MA
Use of terms such as suspected, likely, concern for, or probable (associated with a specific diagnosis that is being evaluated, monitored, or treated as if it exists) are acceptable and can be coded in the inpatient setting, when documented at the
time of discharge.
Thank you,
Ally Unger RN, BSN
CDI Specialist
[place] [facility]
Please use your independent medical judgment in providing your response.
== END 2025-05-29 14:55 | disposition home or self-care (01) | DRG 282 ==
LOC: IVU 09:17
PROVIDERS: Student in an Organized Health Care Education/Training Program; ADMITTING PHYSICIAN Hospitalist; ATTENDING PHYSICIAN Hospitalist; EMERGENCY PHYSICIAN Emergency Medicine; FAMILY PHYSICIAN Nurse Practitioner Family; OTHER PHYSICIAN Internal Medicine
PROC: 4A023N7 Measurement of Cardiac Sampling and Pressure, Left Heart, Percutaneous Approach (ICD-10-PCS; 2025-05-29)
PROC: B2111ZZ Fluoroscopy of Multiple Coronary Arteries using Low Osmolar Contrast (ICD-10-PCS; 2025-05-29)
DX: I48.0 Paroxysmal atrial fibrillation (principal); I21.A1 Myocardial infarction type 2; I25.10 Atherosclerotic heart disease of native coronary artery without angina pectoris; I10 Essential (primary) hypertension; E78.00 Pure hypercholesterolemia, unspecified; I70.0 Atherosclerosis of aorta; I34.0 Nonrheumatic mitral (valve) insufficiency; G47.33 Obstructive sleep apnea (adult) (pediatric); I25.5 Ischemic cardiomyopathy; J44.9 Chronic obstructive pulmonary disease, unspecified; I71.40 Abdominal aortic aneurysm, without rupture, unspecified; Z96.641 Presence of right artificial hip joint; Z87.891 Personal history of nicotine dependence; Z95.5 Presence of coronary angioplasty implant and graft; Z79.82 Long term (current) use of aspirin
CPT/HCPCS: 80048; 80053; 80061; 83880; 84439; 84443; 84484; 85025; 85027; 85379; 85730; 86803; 93005; 93306; 93458; 96365; 96366; 96367; 99152; 99153; 99291; C1769; C1894; Q9967

== ENCOUNTER 2025-09-01 22:54 | Inpatient (IN) | payer MEDICARE, OTHER, SELFPAY ==
[2025-09-01 16:40] VITALS: BP 177/85
[2025-09-01 17:46] VITALS: BMI 31.3
[2025-09-01 17:49] VITALS: BP 147/82
[2025-09-01] MEDS: NSS 1000 IV (18:39)
[2025-09-01] MEDS: OFIRMEV 100 IV (18:39)
[2025-09-01] MEDS: DECADRON 10 MG IV (18:40)
[2025-09-01 19:04] LABS: Hematocrit 44.9 % (39.0-52.0); Hemoglobin 13.8 g/dL (13.0-18.0); Mean Corp Hgb Conc. 30.7 g/dL (33.0-37.0); Mean Corpuscular Volume 77.3 fL (80.0-94.0); Nucleated Red Blood Cells % 0 % (-); Platelet Count 286 10^3/uL (130-400); Red Cell Dist. Width 18.3 % (11.5-14.5)
[2025-09-01 19:10] VITALS: BP 144/68
--- NOTE | 2025-09-01 19:13 | ED.GENMED ---
History of Present Illness
General
Chief Complaint: Throat Problem
Source: patient
Exam Limitations: none
Time Seen by Provider: 09/01/25 17:52
Nursing documentation reviewed up to this point in time: agreed with
History of Present Illness
History of Present Illness:
70-year-old male with past medical history as noted presents to the ER for evaluation of sore throat and swelling of the right side of his neck. Patient reports that he started yesterday with a sore throat which became much worse this morning. He
describes constant sore throat that gets much worse with swallowing. He has had some associated hoarseness of his voice. He has had very mild cough and increased mucus production in his throat. He denies any congestion or rhinorrhea. He has not
had a fever or chills. He says that today he went to urgent care for assessment of his symptoms; there he was evaluated and had negative COVID and flu, negative strep swab. He says that they palpated a mass on the right side of his neck and told
him that he should go to the ER to be further assessed.
Past History
Past History
ED Past Medical History: CAD, COPD, HTN, Hypercholesterolemia and Other (Abdominal aortic aneurysm being monitored with ultrasounds. 4.6 cm February 2025); Negative IDDM or NIDDM
ED Past Surgical History: Cardiac (PTCA with stent 2011) and Orthopedic
Social History
Tobacco: Former smoker (Quit [phone])
Alcohol: Occasional
Drug: None
Personal:
Living: with family
Employment: Retired
Family History
Family History: Other (Noncontributory)
Review of Systems
Review of Systems
All Other Systems: ROS reviewed and negative except as documented in HPI and ROS
Constitutional: Denies fever or chills
EENT: Reports sore throat; Denies runny nose
Respiratory: Reports cough; Denies trouble breathing
Cardiac: Denies chest pain
ABD/GI: Denies abdominal pain, nausea, vomiting or diarrhea
: Denies flank pain
Musculoskeletal: Denies back pain
Neurological: Denies headache
Phy Exam
Physical Exam
Physical Exam:
General: Awake, alert, oriented x3; no acute distress
Head: Normocephalic, atraumatic
Eyes: Conjunctiva normal, EOMI
Throat: Airway intact, handling secretions, no trismus, no stridor; he has erythema in the posterior oropharynx, no vesicular lesions, no tonsillar exudate, midline uvula without edema
Neck: Trachea midline, supple without meningismus; bilateral anterior cervical chain adenopathy with 1 prominent apparent lymph node in the right submental region
Lungs: Breathing comfortably with no distress, no hypoxia or tachypnea
Heart: Regular rate
Neuro: Grossly intact
Extremities: Warm and well-perfused
Scores
Heart Failure Risk
Heart Failure Risk Score: Not Applicable
Heart Score for Chest Pain Patients
STEMI patient?: Not applicable
Withdrawal Assessment of Alcohol
Withdrawal Assessment Completed?: Not applicable
Course
Orders/Labs/Results
Orders:
Orders
09/01/25 16:43
ECG [Electrocardiogram (*1)] Urgent
Reason for Study: Other
Other Reason for Exam: neck pain
EKG- Treatment ONCE
09/01/25 18:16
CT Neck With Iv Contrast Urgent
Comment:
Reason For Exam: throat pain, right sided neck mass, voice change
09/01/25 18:17
0.9% Sodium Chloride 1000 ml [Nss] 1,000 ml IV BOLUS
Acetaminophen 1000MG/100Ml [Ofirmev] 1,000 mg in 100 ml IV ONCE
Acetaminophen IV Indication:: ED Narcotic Naive Pt-ONCE
Dexamethasone Sod Phosphate [Decadron] 10 mg IV NOW STA
09/01/25 18:41
Complete Blood Count/With Diff Urgent
Comprehensive Metabolic Panel Urgent
Monotest Urgent
09/01/25 21:05
Ampicillin/Sulbactam 3 G [Unasyn] 3 gm 0.9% Sodium Chloride 100 ml [Nss] 100 ml IV NOW
09/01/25 21:23
ENT CONSULT Urgent
Consulting Provider: Uzair Apodaca
Was physician already notified: Yes
Abnormal Lab Results
09/01/25
18:41
MCV 77.3 L fL
(80.0-94.0)
MCH 23.8 L pg
(27.0-31.0)
MCHC 30.7 L g/dL
(33.0-37.0)
RDW 18.3 H %
(11.5-14.5)
Absolute Neuts (auto) 6.9 H 10^3/uL
(1.4-6.5)
Absolute Monos (auto) 0.7 H 10^3/uL
(0.1-0.6)
Lymphocytes % 17.5 L %
(20.5-51.1)
Glucose 105 H mg/dl
(70-99)
09/01/25 18:41
09/01/25 18:41
Vital Signs
Initial and Last Documented VS:
Initial Vital Signs
Temp Pulse Resp BP Pulse Ox
36.7 C 66 20 177/85 93
09/01/25 16:40 09/01/25 16:40 09/01/25 16:40 09/01/25 16:40 09/01/25 16:40
Last Documented Vital Signs
Temp Pulse Resp BP Pulse Ox
36.8 C 54 14 157/67 93
09/01/25 19:10 09/01/25 21:24 09/01/25 21:24 09/01/25 21:24 09/01/25 21:24
MDM/Problems Addressed
Differential Diagnosis Includes:
Peritonsillar abscess, retropharyngeal abscess, pharyngitis, tonsillitis, lymphadenitis
MDM/Problems Addressed:
70-year-old male presents to the ER for evaluation of sore throat as described above also had palpable mass noted at urgent care. Hypertensive but otherwise normal vitals. Physical exam as above. Suspect that right sided neck mass is prominent
adenopathy however given his change in his voice and relatively rapid progression of sore throat will check CT neck to rule out abscess. Send basic labs. He already had COVID, flu, strep testing at urgent care which was reportedly negative. We
can send a Monospot. Can trial steroid. He is on Eliquis will hold on NSAIDs but can trial acetaminophen. Provide IV fluids. Reassess after the above.
Labs reviewed: CBC and CMP no clinically significant abnormalities. Wetzel negative. CT neck shows what appears to be 1.6 cm abscess on the right causing some compression of the laryngeal airway. Multiple other incidental findings noted. Case
discussed with ENT for consultation. Already given steroid, will start IV antibiotic. Fortunately on clinical reassessment patient is breathing comfortably not labored, normal vitals. Continue to monitor very closely.
ENT evaluated the bedside agree likely abscess admit on IV antibiotics plan for OR tomorrow. Discussed with hospitalist.
Chronic conditions affecting care:
A-fib on Eliquis effects medication choice for pain among other things
Acute Exacerbation and/or Progression of Chronic Illness:
Acutely hypertensive improved without intervention continue to monitor but no emergent antihypertensives indicated at this point
Acute Exacerbation and/or Progression of Chronic Illness: HTN
*Radiology
Radiology exam reviewed: radiology read reviewed
*Pulse Oximetry
SaO2: 93
Oxygen Mode of Delivery: Room air
Patient hypoxic: no (93%)
*EKG
Interpreted by ED Provider?: Yes
Heart Rate: 62
Rate: normal
Rhythm: sinus
Patterson: normal axis
Interval: normal interval
QRS Pattern: normal QRS
Ischemia: no ischemia
*Critical Care Note
Total Time (30-74mins, 75-104mins- exclusive of procedures): Not Applicable
Data Reviewed
Source: patient
Patient Management
Discussion with other providers: Hospitalist (Discussed with hospitalist) and [employer] (Discussed with ENT)
Escalation/DeEscalation of care consider admission/obs:
Admission indicated
ED Attending Note
-
Portions of this chart may have been created with voice recognition software.� Occasional wrong word or��sound alike� substitutions may have occurred due to the inherent limitations of voice recognition software.
Discharge Plan
Departure
Patient Disposition: Admit
Date of Disposition: 09/01/25
Time of Disposition: 22:17
Admit to doctor: Elmer
Presentation/result/management discussed w/ accepting MD/DO: Hospitalist
Discharge Problem:
Abscess, peritonsillar
Prescriptions:
No Action
nitroglycerin 0.4 MG tablet, sublingual
0.4 mg sublingual [id number] PRN (Reason: chest pain)
atorvastatin 20 MG tablet
20 mg PO DAILY
coenzyme Q10 [CoQ-10] 100 mg Capsule
100 mg PO DAILY
cholecalciferol (vitamin D3) [Vitamin D3] 25 mcg (1,000 unit) Tablet
25 mcg PO DAILY
Breztri Aerosphere 160-9-4.8 mcg/actuation Hfa Aerosol Inhaler
2 inh INHALATION R BID
cyanocobalamin (vitamin B-12) 1,000 mcg Tablet
1,000 mcg PO DAILY
trazodone 100 mg Tablet
100 mg PO HS
therapeutic multivitamin Tablet
1 tab PO DAILY
omeprazole 20 mg Tablet,Delayed Release (Dr/Ec)
20 mg PO DAILY
losartan 50 mg Tablet
50 mg PO DAILY Qty: 30 0RF
Eliquis 5 mg Tablet
5 mg PO BID Qty: 60 0RF
acetaminophen [Tylenol] 325 mg Tablet
650 mg PO Q6HPRN PRN (Reason: mild pain)
Referrals:
Nancy Martell CRNP [Family Provider, Family Practice]
Interventions
Interventions:
*Risk Screen - Suicide Last Done: 09/01/25 17:46
*General Assessment Last Done: 09/01/25 16:40
*Neglect/Abuse Screening Last Done: 09/01/25 17:46
*ED- Fall Risk Assessment Last Done: 09/01/25 17:46
*ED COVID-19 Vaccine History Last Done: 09/01/25 17:46
*ED Influenza Vaccine History Last Done: 09/01/25 17:46
ED-EENT Assessment Last Done: 09/01/25 19:17
ED- Pulmonary Assessment Last Done: 09/01/25 19:17
Discharge Date and Time
Print Language: INDIAN
--- NOTE | 2025-09-01 19:20 | EDRN ---
Pt complains of R neck/throat pain since yesterday. Pt says he only has pain when he swallows or yawns. Pt notes his voice is not normal. No fever/chills. Pt has a cough that is productive but pt says he does not know what color because he won't
bring it up. Hx of copd - breathing no different than normal. No cp/sob, abd pain, n/v.
[2025-09-01 19:26] LABS: ALT (SGPT) 28 U/L (0-50); AST (SGOT) 33 U/L (17-59); Albumin 4.4 g/dl (3.5-5.0); Alkaline Phosphatase 83 U/L (38-126); Blood Urea Nitrogen 13 mg/dl (9-20); Calcium 9.0 mg/dl (8.4-10.2); Carbon Dioxide 27 mmol/L (22-30); Chloride 104 mmol/L (98-107); Estimated Creatinine Clearance 74 ml/min; Glucose 105 mg/dl (70-99); Potassium 4.3 mmol/L (3.5-5.1); Sodium 139 mmol/L (135-145); Total Protein 7.2 g/dl (6.3-8.2); eGFR > 60.00
--- NOTE | 2025-09-01 21:02 | EDRN ---
Called pharmacy for josie
[2025-09-01] MEDS: UNASYN IV (21:21)
[2025-09-01 21:24] VITALS: BP 157/67
--- NOTE | 2025-09-01 22:05 | W.CON.OTO ---
Otolaryngology Consult
Consult
Date/Time Consultation Requested: 09/01/20252047
Date/Time Consultation Performed: 09/01/20251944
Requesting Provider: Andrew
Performing Provider: Constanza
Reason for Consultation: Odynophagia
Chief Complaint
Sore throat
History of Present Illness
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 He went to an urgent care who palpated a neck mass and
referred him to the ED. In ED he was afebrile and hemodynamically stable and in no distress. He had no trismus, drooling or stridor. He was able to tolerate a CT neck which showed complete effacement of the R piriform sinus with a mildly rim
enhancing complex fluid collection. ENT was consulted for evaluation and management recommendations. At the time of eval the patient felt about the same after receiving unasyn steroids and motrin. No stridor, no new dyspnea and no new pain. He said
symptoms developed rapidly. He has underlying COPD from a longstanding smoking hx but his dyspnea is not different in quality currently. No recent travel, sick contacts, unusual exposures, allergies or fish/chicken bone meals or ingestions. Takes
and ARB but not an ACEi. Had prior H&N surgery with Inspire about 1 year ago. He is the legal guardian of his 16yo grandson.
Medical History
Past Medical History: COPD and Hypercholesterolemia
Past Surgical History: Other
Additional Past Surgical History:
Inspire
Patient Allergies:
Allergies
Allergy/AdvReac Type Severity Reaction Status Date / Time
No Known Allergies Allergy Verified 09/01/25 16:42
Home Medications / Current Medications:
�Medication �Instructions �Recorded
acetaminophen 325 mg tablet 650 mg PO Q6HPRN PRN mild pain 09/01/25
(Tylenol)
Physical Exam
Vitals / Labs:
Vital Signs
Temp 98.3 F 09/01/25 19:10
Temp route: Oral 09/01/25 19:10
Pulse 54 09/01/25 21:24
Resp Rate 14 09/01/25 21:24
Blood pressure 157/67 09/01/25 21:24
Blood pressure extremity used: Left upper arm 09/01/25 21:24
Position: Sitting 09/01/25 21:24
SaO2 93 09/01/25 21:24
Oxygen Mode of Delivery Room air 09/01/25 21:24
Can the patient verbally communicate their pain? Yes 09/01/25 18:39
Pain scale ratin 09/01/25 19:10
Actual Weight 96.162 kg 09/01/25 17:46
Body Mass Index (BMI) 31.3 09/01/25 17:46
Lab Results
09/01/25 18:41
09/01/25 18:41
Exam:
Otolaryngology-specialty specific physical exam: NAD. Sitting comfortably in bed. External ears and nose normal. No trismus. No drooling. Pharynx erythematous. Right cervical adenopathy
Procedure Note- Flexible Laryngoscopy:
Procedure:�Gag reflex prevented proper mirror examination of the larynx and pharynx so a flexible fiberoptic laryngoscopy was performed. Verbal consent was obtained prior to the procedure. Topical anesthesia consisting of 2% viscous lidocaine was
applied to the nasal cavity. The findings of the examination are detailed below. The attending physician performed and documented the entire procedure. The patient tolerated the procedure well without any complications.�
Indications:�Sore throat, throat mass
Nasopharynx:�normal.
Base of Tongue:�normal.�
Vallecula:�normal.�
Posterior pharyngeal joel:��normal.�
Epiglottis:�normal
Post-cricoid:�edema
Arytenoid: right arytenoid edema, effaced by fluid collection. left normal. normal motion
Interarytenoid:�edema
AE Fold:�normal.�
Pyriform Sinus:�left normal. complete effacement of right piriform sinus with waterbag edema and complex fluid collection. minimal extrinsic compression on larynx with minimal deviation. No obvious mass seen.
False Cords:�normal.�
Ventricles:�normal.�
Vocal Fold:�normal, no masses or lesions.�
Dynamic assessment:�Both vocal folds mobile.�
Vocal Cord Mobility: b/l mobile fully and symmetrically.�
Subglottis:�normal.�
Remainder:�The larynx and hypopharynx were examined as above.�
Assessment / Plan
70yo man presenting with supraglottitis.
I favor acute infection based on quick and abrupt onset and the associated pain with this complex fluid collection. The waterbag edema seem on laryngoscopy can be a feature of supraglottitis, especially of the laryngeal structures. While this could
reflect an abscess, a low WBC like his is unusual. While neoplasm is not excluded, they usually do not present this way. Pain is usually not seen with allergic or angioedema presentations so doubt this.
Recommendations:
- admission to bed with continuous pulse ox monitoring capabilities for airway monitoring, IV abx with Unasyn, steroids with 8mg dexamethason q8h and PRN pain control
- OK for diet now, but please make NPOpMN into 09/02/25
- ENT to reevaluate on 09/02 with laryngoscopy to monitor for improvement
- No role for surgical intervention or drainage at this time given no sepsis criteria met, no leukocytosis and no immediate airway threat
Please contact with questions or concerns
Data Reviewed
Radiology: Image Personally Visualized and interpreted (CT neck with contrast: complete effacement of right piriform sinus by a mildly rim enhancing hypodensity. It could reflect developing abscess or neoplasm. Substantial edema.), Report Reviewed
by me and Discussed with Patient
Lab Data: Labs Reviewed by me (WBC 09/01/25 9.4, increased from last in April 2025. Plt 09/01/25 286, stable)
--- NOTE | 2025-09-01 22:18 | HPS.HSE ---
Addendum entered and electronically signed by Compa Payne DO 09/01/25 22:58:
Patient seen and examined independently. Agree with findings and plan as set forth by NEAL Corona.
Patient is a 70y M with PMH significant for ASCVD, COPD, HTN and A-Fib who presents to ED complaining of sore throat x 24 hours. Patient states that symptoms started suddenly yesterday and have rapidly and significantly increased since that
time. He has severe pain with swallowing on the R. He was seen at Urgent Care today and referred to the ED for further evaluation. Imaging in the ED shows large mass / collection in the R pyriform sinus. Patient was evaluated by ENT in the ED as
well and underwent bedside laryngoscopy.
His voice is hoarse but he is able to speak in full sentences. Pain with swallowing but no drooling. Chronic dyspnea due to COPD - but no worse per patient.
Ass:
Peritonsillar Abscess
ASCVD
Paroxysmal Atrial Fibrillation
Benign Hypertension
COPD
Plan:
Admit for further evaluation and treatment.
Appreciate ENT eval and recommendations in the ED.
IV Unasyn, IV steroids, continuous pulse ox monitoring overnight.
Plan for repeat laryngoscopy in the AM to assess progress. +/- OR for drainage if necessary.
Hold Eliquis acutely.
Follow for clinical changes / improvement.
Original Note:
Family Physician
-
Family Physician: Nancy Martell
Chief Complaint
-
right sided throat pain
History of Present Illness
70-year-old male with past medical history for CAD, COPD, HTN, HLD, aortic aneurysm, atrial fib presented to us with right sided throat pain since yesterday. pain worse with swallowing and yarning.today the pain progressively got worse. He has had
some associated hoarseness of his voice. He has had very mild cough and increased mucus production in his throat. He denies any congestion or rhinorrhea. He has not had a fever or chills. denied GARCIA, dizzy or syncope. denied chest pain. he has
chronic sob. denied abdominal pain,n,v,d. denied dysuria or hematuria.
CT concerning for
received abx, steroids. admitting for further management
Medical History
Past Medical History
Past Medical History: Reports Other
Additional Past Medical History:
HTN
CAD
COPD
HLD
Past Surgical History: Reports Other
Additional Past Surgical History:
cardiac stent
right hip replacement
Social History
Tobacco: Former Smoker
Alcohol: Occasional
Drug: None
Living: With Family
Family History
Family History: Not pertinent
Allergies / Home Medications
Allergies reflects when Allergies were last updated in [email or web address].
Home Medications with original date entered in [email or web address]
Allergy/Medication List:
Allergies
Allergy/AdvReac Type Severity Reaction Status Date / Time
No Known Allergies Allergy Verified 09/01/25 16:42
Home Medications
nitroglycerin 0.4 mg sublingual tablet 0.4 mg sublingual [id number] PRN chest pain 12/12/11
atorvastatin 20 mg tablet 20 mg PO DAILY High Cholesterol 04/30/16
cholecalciferol (vitamin D3) 25 mcg (1,000 unit) tablet (Vitamin D3) 25 mcg PO DAILY Supplement 08/02/23
coenzyme Q10 100 mg capsule (CoQ-10) 100 mg PO DAILY Supplement 08/02/23
budesonide 160 mcg-glycopyr 9 mcg-formot 4.8 mcg/actuation HFA inhaler (Breztri Aerosphere) 2 inh inhalation R BID Lung/Breathing Issues 05/27/25
cyanocobalamin (vitamin B-12) 1,000 mcg tablet 1,000 mcg PO DAILY Supplement 05/27/25
omeprazole 20 mg tablet,delayed release 20 mg PO DAILY Gastrointestinal Issue 05/27/25
therapeutic multivitamin 1 tab PO DAILY Supplement 05/27/25
trazodone 100 mg tablet 100 mg PO HS 05/27/25
apixaban 5 mg tablet (Eliquis) 5 mg PO BID #60 tabs 05/29/25
losartan 50 mg tablet 50 mg PO DAILY #30 tabs 05/29/25
acetaminophen 325 mg tablet (Tylenol) 650 mg PO Q6HPRN PRN mild pain 09/01/25
Review of Systems
-
Constitutional: Reports No Symptoms
EENT: Reports No Symptoms and Sore Throat
Respiratory: Reports No Symptoms
Cardiac: Reports No Symptoms
Abdomen/GI: Reports No Symptoms
: Reports No Symptoms
Musculoskeletal: Reports No Symptoms
Skin: Reports No Symptoms
Neurological: Reports No Symptoms
Endocrine: Reports No Symptoms
Hematologic/Lymphatic: Reports No Symptoms
Psych: Reports No Symptoms
Physical Exam
Vital Signs
Vital Signs
Temp Pulse Resp BP Pulse Ox
98.3 F 54 14 157/67 93
09/01/25 19:10 09/01/25 21:24 09/01/25 21:24 09/01/25 21:24 09/01/25 21:24
Physical Exam
General: Well Developed, Well Nourished and No Apparent Distress
HEENT: NormoCephalic, Moist mucous membranes and Atraumatic
Respiratory: Clear
Cardiac: S1/S2 and Regular Rhythm; No Murmur or Rub
GI: Soft, Non Tender, Non Distended and Normal Bowel Sounds; No Organomegaly
Rectal: Deferred by Provider
Musculoskeletal: No Clubbing, No Cyanosis and No Edema
Skin: No Rash
Neuro: Nonfocal/grossly intact
Psych: Calm
Laboratory Results
-
09/01/25 18:41
09/01/25 18:41
Laboratory Results
Total Bilirubin 1.1 mg/dl (0.2-1.3) 09/01/25 18:41
AST 33 U/L (17-59) 09/01/25 18:41
ALT 28 U/L (0-50) 09/01/25 18:41
Alkaline Phosphatase 83 U/L (38-126) 09/01/25 18:41
Data Reviewed
-
CT Scan: Report Reviewed by me
Lab Data: Labs Reviewed by me
Impression/Plan
-
#peritonsillar abscess
-IV Unasyn
-Decadron 8mg iv every 8hours
-keep patient NPO after MN to evaluate with laryngoscopy to monitor for improvement
-ENT following patient
-neck CT with the impression of Occlusion (or near occlusion) of the laryngeal airway with anterior displacement of the arytenoid cartilage and effacement of the right pyriform sinus containing rim-enhancing soft tissue (1.6 cm in size). Diagnostic
possibilities are (1) an abscess (if there are signs/symptoms of infection), (2) laryngeal cancer, or (3) focal cord paralysis.
2. Severe calcific atherosclerotic plaque in both proximal internal carotid arteries.
3. Severe discogenic degenerative disease at C4/C5 and C5/C6 with large disc-osteophyte complexes causing moderate spinal cord compression, moderate central canal stenosis, and severe left neural foraminal narrowing.
4. Inspire sleep apnea device in place.
5. SEVERE EMPHYSEMA in both lungs.
6. Mild mediastinal lymphadenopathy.
7. Severe calcific atherosclerotic plaque in the thoracic aorta.
#Paroxysmal atrial fibrillation
-hold eliquis
#History of CAD with circ stenting in 2013
# Essential hypertension
-losartan continued with hold parameter
#GERD
-PPI continued
#History of abd aortic aneurysm - 4.9cm ,stable on last OP check
#Hyperlipidemia
-atorvastatin continued
#COPD
-not in acute exacerbation
-Breztri continued
DVT prophylaxis-scd
Full code
[2025-09-01 23:06] VITALS: BP 141/64
--- NOTE | 2025-09-01 23:16 | EDRN ---
Report given to Rocio in IMU
[2025-09-01 23:31] VITALS: BMI 30.4
[2025-09-01 23:35] VITALS: BP 124/74
[2025-09-01 23:43] VITALS: BMI 30.4
--- NOTE | 2025-09-01 23:50 | PTCARENOTE ---
Report received from Vivian MAR. Pt transported from ED via stretcher. Pt ambulated to the bed without issues. Pt AAOx3. A-febrile. Pt has a notably raspy voice which is not his usual voice quality. Received pt on room air, SpO2 93%. Pt orthopneic.
Pt desatting to 86% lying flat. Pt does have Inspira device in right upper chest. NSR on the monitor. Pt NPO at [place]. Pt aware. Assessment and care as charted. Admission completed. Pt oriented to the room, call schneider within reach.
[2025-09-02] VITALS (12 sets, daily range): BP systolic 88–145; BP diastolic 58–87
[2025-09-02] MEDS: DECADRON 8 MG IV (01:00)
[2025-09-02] MEDS: UNASYN IV ×4 (03:14→21:36)
--- NOTE | 2025-09-02 05:16 | PTCARENOTE ---
Patient SpO2 87% on room air. Pt denies SOB or trouble breathing. Placed pt on 2L NC.
[2025-09-02] MEDS: COZAAR 50 MG PO (07:25)
[2025-09-02] MEDS: PROTONIX 40 MG PO (07:25)
[2025-09-02] MEDS: VITAMIN D3 (cholecalciferol) 25 MCG PO (07:26)
[2025-09-02] MEDS: LIPITOR 20 MG PO (07:26)
[2025-09-02] MEDS: SYMBICORT 160/4.5 MCG INHALER 2 PUFF INH ×2 (07:32→20:17)
[2025-09-02] MEDS: SPIRIVA RESPIMAT 2.5 MCG 2 PUFF INH (07:33)
--- NOTE | 2025-09-02 08:00 | W.PN.ENT ---
Today's Communication
-
With hospitalist
Impression / Plan
-
70yo man with right supraglottitis and right VC hypomobility
He is improving clinically with less odynophagia, and his laryngoscopy today corroborates this.
Recommendations:
- I agree with continued unasyn and dexamethason 8mg q8h.
- No further need for NPO at this time as no indication for surgical intervention this AM. No otolaryngologic-contraindication to oral diet as tolerated
- I agree that at least a full 24h of IV therapy is a good plan for him. After the 24h or so of IV, OK for transition to PO augmentin and PO steroids. Would consider a steroid taper beginning from 60mg prednisone over the next 7-10 days. He should
complete a total of 14 days of antibiotics.
- I left my contact information for him at his bedside so he can arrange close outpatient followup within 1 week or so of discharge to ensure he continues to improve and to confirm the laryngeal changes are indeed from the acute infectious process
This plan was discussed in overview with his hospitalist today
Please contact with questions or concerns - available on [employer]
Subjective Data
-
He feels marginally better. He has a noticeable improvement in swallowing with less pain but overall not much better. No new symptoms.
Objective Data
-
Vital Signs
Temp Pulse Resp BP Pulse Ox
97.8 F 62 16 134/64 93
09/02/25 07:37 09/02/25 07:35 09/02/25 07:35 09/02/25 07:25 09/02/25 07:35
Intake & Output
09/01/25 09/02/25 09/03/25
06:59 06:59 06:59
Intake:
IV fluids (Total) 1000 / 1000
NSS 1000 / 1000
IV piggybacks 120 / 120
Output:
Urine, Voided 300 / 300
Lab Results
09/01/25 18:41
09/01/25 18:41
Calcium 9.0 mg/dl (8.4-10.2) 09/01/25 18:41
Total Bilirubin 1.1 mg/dl (0.2-1.3) 09/01/25 18:41
AST 33 U/L (17-59) 09/01/25 18:41
ALT 28 U/L (0-50) 09/01/25 18:41
Alkaline Phosphatase 83 U/L (38-126) 09/01/25 18:41
Physical Exam
-
Cjpkkvnirzqtra-ummgqzbcm-giievlsz physical exam: NAD. Sitting comfortably in bed. Breathing slightly quieter. Remains dysphonic with hoarseness. No trismus, drooling. No stridor
Flexible laryngoscopy
Procedure:�Gag reflex prevented proper mirror examination of the larynx and pharynx so a flexible fiberoptic laryngoscopy was performed. Verbal consent was obtained prior to the procedure. Topical anesthesia consisting of 2% viscous lidocaine was
applied to the nasal cavity. The findings of the examination are detailed below. The attending physician performed and documented the entire procedure. The patient tolerated the procedure well without any complications.�
Indications:�Sore throat, throat mass
Nasopharynx:�normal.
Base of Tongue:�normal.�
Vallecula:�normal.�
Posterior pharyngeal joel:��normal.�
Epiglottis:�normal
Post-cricoid:�edema-improved but present still
Arytenoid: improved right arytenoid edema - can now see lateral edges of the cartilage shape. R diminished motion. Left normal
Interarytenoid:�edema-improved
AE Fold:�normal.�
Pyriform Sinus:�left normal. ~70% effacement of right piriform sinus- improved from prior. minimal extrinsic compression on larynx with minimal deviation. No obvious mass seen.
False Cords:�normal.�
Ventricles:�normal.�
Vocal Fold:�normal, no masses or lesions.�
Dynamic assessment:�right hypomobile, left normal�
Vocal Cord Mobility: right hypomobile. left normal
Subglottis:�normal.�
Remainder:�The larynx and hypopharynx were examined as above.�
--- NOTE | 2025-09-02 09:01 | W.PN.HOSP.TC ---
Today's Communication/Plan
-
ok for diet
Lower dose of steroid
Assessment / Plan
Assessment / Plan
Physical Exam
General: Well Developed, Well Nourished and No Apparent Distress
HEENT: Normocephalic, Moist mucous membranes and Atraumatic
Respiratory: Clear
Cardiac: S1/S2 and Regular Rhythm; No Murmur or Rub
GI: Soft, Non Tender, Non Distended and Normal Bowel Sounds;
Musculoskeletal: No Clubbing, No Cyanosis and No Edema
Skin: No Rash
Neuro: AAO to self and surroundings, Nonfocal/grossly intact
Psych: Calm
A/P:
#peritonsillar abscess
He feels better, less odynophagia
-IV Unasyn
No worsening hypoxia
-Decadron 8mg iv every 8hours, will decrease the dose
-ok for soft diet
d/w ENT, appreciate help
Consulted ID, appreciate input
# Chronic hypoxic respiratory failure on home O2
Does not use it all the time
#Paroxysmal atrial fibrillation
-Resume Eliquis
#History of CAD with circ stenting in 2013
No chest pain
# Essential hypertension
-losartan continued with hold parameter
#GERD
-PPI continued
#History of abd aortic aneurysm - 4.9cm ,stable on last OP check
#Hyperlipidemia
-atorvastatin continued
#COPD
-not in acute exacerbation
-c/w BP medicine
DVT prophylaxis-scd
Full code
Total time spent to see the patient, examine the patient, review data and lab result, discuss treatment plan with patient, nursing staff around 55 minutes
Anticipated Discharge: 24 - 48 hours
Subjective/Interval History
-
Date of Service: September 02, 2025
He feels better, less swallowing difficulty
No chest pain
Objective Data
-
Vital Signs:
Vital Signs
Temp Pulse Resp BP Pulse Ox
97.8 F 62 16 134/64 93
09/02/25 07:37 09/02/25 07:35 09/02/25 07:35 09/02/25 07:25 09/02/25 07:35
I&O
09/01/25 09/02/25 09/03/25
06:59 06:59 06:59
Intake Total 1120 / 1120
Output Total 300 / 300
Balance 820 / 820
[2025-09-02] MEDS: DECADRON 4 MG IV ×2 (09:32→17:17)
--- NOTE | 2025-09-02 09:39 | CON.ID ---
Consultation
-
Date/Time Consultation Requested: 09/02/25 6:57
Date/Time Consultation Performed: 09/02/25 9:39
Requesting Provider: Dr Escalante
Performing Provider: Dr Perez
Reason for Consultation: peritonsillar abscess
Chief Complaint / Past History
Chief Complaint
sore throat
History of Present Illness
Mr Torrez is a 70 year old male with h/o COPD with chronic dyspnea who presented with 1 day acute onset of worsening right sided sore throat with dysphagia, odynophagia and dysphonia. He was referred to the ER by urgent care. No stridor, drooling or
trismus.
Since arrival here he has been afebrile, bp stable, wbc count 9.4, hgb 13., plt 286, cr 1.1, CT neck with IV contrast showed occlusion/near occlusion of the laryngeal airway with displacement of the arytenoid cartilage and effacement of the right
pyriform sinus containing rim-enhancing soft tissue (1.6 cm in size) ENT was consulted and preformed flexible laryngoscopy with arytenoid fluid collection noted, effacement of right piriform sinus with complex fluid collection, no mass, he was
admitted for unasyn steroids and pain control. He was
Past History
Additional Past Medical History:
HTN
CAD
COPD
HLD
Additional Past Surgical History:
cardiac stent
right hip replacement
Allergy History:
No Known Allergies Allergy (Verified 09/01/25 16:42)
Medications Reviewed: Yes
Social History
Tobacco: Former Smoker
Alcohol: Occasional
Drug: None
Family History
Family History: Not Pertinent
Review of Systems
Review of Systems
Constitutional: Reports No Symptoms
EENT: Reports No Symptoms and Sore Throat
Respiratory: Reports No Symptoms
Cardiac: Reports No Symptoms
Abdomen/GI: Reports No Symptoms
: Reports No Symptoms
Musculoskeletal: Reports No Symptoms
Skin: Reports No Symptoms
Neurological: Reports No Symptoms
Endocrine: Reports No Symptoms
Hematologic/Lymphatic: Reports No Symptoms
Psych: Reports No Symptoms
Vital Signs
Temp Pulse Resp BP Pulse Ox
97.8 F 62 16 134/64 93
09/02/25 07:37 09/02/25 07:35 09/02/25 07:35 09/02/25 07:25 09/02/25 07:35
Physical Exam
Physical Exam
Constitutional: No Acute Distress
Head: Other (hoarse voice, no tenderness with palpation of the neck)
Cardiovascular: Regular Rate and S1/S2; Negative Murmur or Rub
Pulmonary: Clear and Symmetric; Negative Wheezes, Rales or Rhonchi
Gastrointestinal: Soft, Non Tender, Non Distended and Normal Bowel Sounds
Skin: Warm and Dry; Negative Rash or Jaundice
Lab / Diagnostic Study Results
09/01/25 18:41
09/01/25 18:41
Abs Immat Gran (auto) 0.0 10^3/uL (0-0.05) 09/01/25 18:41
Absolute Neuts (auto) 6.9 10^3/uL (1.4-6.5) H 09/01/25 18:41
Absolute Lymphs (auto) 1.7 10^3/uL (1.2-3.4) 09/01/25 18:41
Absolute Monos (auto) 0.7 10^3/uL (0.1-0.6) H 09/01/25 18:41
Absolute Basos (auto) 0.0 10^3/uL (0-0.2) 09/01/25 18:41
Immature Gran % 0.4 % (0-0.5) 09/01/25 18:41
Neutrophils % 73.7 % (42.2-75.2) 09/01/25 18:41
Lymphocytes % 17.5 % (20.5-51.1) L 10/03/25 18:41
Monocytes % 7.4 % (1.7-9.3) 09/01/25 18:41
Eosinophils % 0.7 % (0-6) 09/01/25 18:41
Basophils % 0.3 % (0-2) 09/01/25 18:41
Assessment / Plan
right supraglottitis
- clinically improved with less odynophagia
- agree with the plan for 24 hours of IV unasyn followed by 13 days of augmentin
- steroids per ENT recommendations
- follow up with ENT as planned
--- NOTE | 2025-09-02 14:11 | CM ---
Initial Assessment Completed by BERNY Machado.
Patient lives with his & grandson (16 years old) in a 1 Story [employer] no steps to enter. Patient has oxygen at home (4 liters) as well as a concentrator and carry oxygen- inogen. Patient is room air and only says he does NOT use oxygen unless
he exerts himself. Patient is on Room Air now in the room.
No Home VN/ PT, No Inpatient Rehab.
PCP: UVALDO Potter
Pharmacy: [facility]
Patient has transportation home. PLAN: Anticipate Home No Needs.
--- NOTE | 2025-09-02 18:19 | PTCARENOTE ---
Pt cleared for small & bit sized diet this afternoon, tolerated well. VSS. Remains on RA sating 90-93%, pt refusing oxygen. Desats to 84% w/ ambulation, recovers within 2 minutes w/ rest.
[2025-09-03] VITALS (8 sets, daily range): BP systolic 131–152; BP diastolic 60–75
[2025-09-03] MEDS: DECADRON 4 MG IV ×2 (01:46→09:30)
--- NOTE | 2025-09-03 01:58 | PTCARENOTE ---
Patient AAOx3. IV abx cont. IV steroids cont. Received pt on room air. SpO2 90%. With exertion pt desatting to 85%. Pt refusing to wear O2. Pt educated. Pt does recover while at rest. VSS. Assessment and care as charted. Call schneider within reach.
[2025-09-03] MEDS: UNASYN IV (03:15)
[2025-09-03] MEDS: SPIRIVA RESPIMAT 2.5 MCG 2 PUFF INH (07:19)
[2025-09-03] MEDS: SYMBICORT 160/4.5 MCG INHALER 2 PUFF INH (07:19)
[2025-09-03] MEDS: LIPITOR 20 MG PO (08:28)
[2025-09-03] MEDS: VITAMIN D3 (cholecalciferol) 25 MCG PO (08:28)
[2025-09-03] MEDS: COZAAR 50 MG PO (08:28)
[2025-09-03] MEDS: PROTONIX 40 MG PO (08:28)
--- NOTE | 2025-09-03 08:57 | W.PN.ID1 ---
Date of Service
Date of Service: September 03, 2025
Today's Communication
- transition to augmentin today for 13 more days
Assessment / Plan
right supraglottitis
- clinically improved with less odynophagia, voice less hoarse, feels his swallowing is good
- transition to augmentin today for 13 more days
- steroids per ENT recommendations
- follow up with ENT as planned
Chief Complaint
-: Other (right supra glottitis)
Subjective / Review of Systems
afebrile
bp stable
confident that he can swallow
Vital Signs / Physical Exam
Vital Signs
Vital Signs
Temp Pulse Resp BP Pulse Ox
97.7 F 84 16 140/60 92
09/03/25 08:22 09/03/25 08:28 09/03/25 07:24 09/03/25 08:28 09/03/25 08:15
Physical Exam
Constitutional: No Acute Distress
Head: Other (voice no longer hoarse)
Cardiovascular: Regular Rate and S1/S2; Negative Murmur or Rub
Pulmonary: Clear and Symmetric; Negative Wheezes or Rales
Gastrointestinal: Soft, Non Tender, Non Distended and Normal Bowel Sounds
Skin: Warm and Dry; Negative Rash or Jaundice
Objective Data
Lab Data
Lab Results
09/01/25 18:41
09/01/25 18:41
Estimated Creat Clear 74 ml/min 09/01/25 18:41
Total Bilirubin 1.1 mg/dl (0.2-1.3) 09/01/25 18:41
AST 33 U/L (17-59) 09/01/25 18:41
ALT 28 U/L (0-50) 09/01/25 18:41
Alkaline Phosphatase 83 U/L (38-126) 09/01/25 18:41
Most recent labs reviewed.
Micro Results:
09/02/25 11:18 Blood Culture - Pending
Blood/Venous
--- NOTE | 2025-09-03 09:19 | W.PN.HOSP.TC ---
Today's Communication/Plan
-
discharge after O2 evaluation
Assessment / Plan
Assessment / Plan
Physical Exam
General: Well Developed, Well Nourished and No Apparent Distress
HEENT: Normocephalic, Moist mucous membranes and Atraumatic
Respiratory: Clear
Cardiac: S1/S2 and Regular Rhythm; No Murmur or Rub
GI: Soft, Non Tender, Non Distended and Normal Bowel Sounds;
Musculoskeletal: No Clubbing, No Cyanosis and No Edema
Skin: No Rash
Neuro: AAO to self and surroundings, Nonfocal/grossly intact
Psych: Calm
A/P:
#peritonsillar abscess
He feels better, no odynophagia
-s/p IV Unasyn, change to Augmentin
No worsening hypoxia
-Decadron 8mg iv every 8hours, change to oral prednisone
- Tolerating diet well
d/w ENT, appreciate help
Consulted ID, appreciate input
# Chronic hypoxic respiratory failure on home O2
Does not use it all the time , he reports he was told only on exertion
He wants to go home, will check resting SaO2
#Paroxysmal atrial fibrillation
-Resume Eliquis
#History of CAD with circ stenting in 2013
No chest pain
# Essential hypertension
-losartan continued with hold parameter
#GERD
-PPI continued
#History of abd aortic aneurysm - 4.9cm ,stable on last OP check
#Hyperlipidemia
-atorvastatin continued
#COPD
-not in acute exacerbation
-c/w BP medicine
DVT prophylaxis-scd
Full code
Total dc time spent to see the patient, examine the patient, review data and lab result, discuss sicharge plan with patient, nursing staff around 65 minutes
Anticipated Discharge: Today
Subjective/Interval History
-
Date of Service: September 03, 2025
No chest pain
No abd pain
He was to go home
No sore throat, feels back to normal.
Objective Data
-
Vital Signs:
Vital Signs
Temp Pulse Resp BP Pulse Ox
97.7 F 84 16 140/60 92
09/03/25 08:22 09/03/25 08:28 09/03/25 07:24 09/03/25 08:28 09/03/25 08:15
I&O
09/02/25 09/03/25 09/04/25
06:59 06:59 06:59
Intake Total 1120 / 1120 360 / 360
Output Total 300 / 300 625 / 625
Balance 820 / 820 -265 / -265
[2025-09-03] MEDS: AUGMENTIN 875 MG/125 MG 1 TABLET PO (09:30)
--- NOTE | 2025-09-03 12:23 | CM ---
Addendum entered by Jeannette Narayanan 09/03/25 13:57:
BERNY Machado learned that patient needs oxygen to discharge home. Patient will have his bring oxygen as he will need this to go home.
Original Note:
Following up on Patient. Patient discharging, IMM completed. PLAN: Home No Needs
--- NOTE | 2025-09-03 13:14 | RESPNOTE ---
Respiratory: SpO2 on room air 88%, ambulation room 83%. SpO2 2 LPM resting 93%, ambulation 4 LPM 93%.
--- NOTE | 2025-09-03 14:26 | W.DCSUMMARY ---
Discharge Summary
Discharge Data
Date of Admission: 09/01/25
Date of Discharge: 09/03/25
-
Pending Results: No
Hospital Course
70 years old male admitted to the hospital with 1 day of acute onset and progressively worsening right sided sore throat with dysphagia, odynophagia and dysphonia. In the emergency room, he did not have fever and was hemodynamically able with no
distress. Scan of the neck showed complete effacement of the R piriform sinus with a mildly rim enhancing complex fluid collection. ENT was consulted and patient had laryngoscopy with a feature of supraglottis. Patient was started on intravenous
antibiotic and intravenous steroid. He was admitted under close observation to monitor for airway obstruction. Patient had a repeat bronchoscopy 24 hours that showed improvement and ENT doctor recommended to resume oral diet and to continue with
antibiotic and taper steroid therapy. Patient was seen by ID doctor. Blood culture did not show any growth. Patient reported history of chronic hypoxic respiratory failure and home oxygen use. He reported he was using oxygen on exertion only.
Home O2 evaluation done and was noted to have oxygen around 88 on rest and 84 on ambulation. Patient was advised to use 2 L of rest and 4 L on ambulation and to monitor his pulse ox, follow-up with his pulmonary doctor. ENT doctor recommended
outpatient follow-up. Patient remained hemodynamically stable. He tolerated diet well with improvement in his symptoms. He was discharged home in a stable condition.
Discharge Plan
-
Patient Disposition: Home (Routine Discharge)
Discharge Diagnosis/Procedures: Acute right supraglottitis
You are seen by ENT, ID doctors. You were given IV antibiotic and steroid treatment. You will need to follow-up with ENT doctor for further management and examination to rule out underlying pathologies.
Diet: As tolerated
Referrals:
Uzair Apodaca, DO [Active, ENT] - in one to two weeks
Nancy Martell CRNP [Family Provider, [facility]]
Prescriptions:
New
amoxicillin-pot clavulanate 875-125 mg Tablet
1 tab PO Q12 Qty: 26 0RF
prednisone 10 mg tablet
40 mg PO DAILY Qty: 20 0RF
Rx Instructions:
40 mg X2 days, 30 mg X 2 days, 20 mg X2 days, 10 mg X2 days
Continued
nitroglycerin 0.4 MG tablet, sublingual
0.4 mg sublingual [id number] PRN (Reason: chest pain)
atorvastatin 20 MG tablet
20 mg PO DAILY
coenzyme Q10 [CoQ-10] 100 mg Capsule
100 mg PO DAILY
cholecalciferol (vitamin D3) [Vitamin D3] 25 mcg (1,000 unit) Tablet
25 mcg PO DAILY
Breztri Aerosphere 160-9-4.8 mcg/actuation Hfa Aerosol Inhaler
2 inh INHALATION R BID
cyanocobalamin (vitamin B-12) 1,000 mcg Tablet
1,000 mcg PO DAILY
trazodone 100 mg Tablet
100 mg PO HS
therapeutic multivitamin Tablet
1 tab PO DAILY
omeprazole 20 mg Tablet,Delayed Release (Dr/Ec)
20 mg PO DAILY
losartan 50 mg Tablet
50 mg PO DAILY Qty: 30 0RF
Eliquis 5 mg Tablet
5 mg PO BID Qty: 60 0RF
acetaminophen [Tylenol] 325 mg Tablet
650 mg PO Q6HPRN PRN (Reason: mild pain)
Discharge Orders:
Discharge Patient (As Directed); Ordered 09/03/25
Ordered By: Cassidy Escalante
Discharge Date and Time
Print Language: AUSTRALIAN
--- NOTE | 2025-09-03 14:43 | PTCARENOTE ---
Patient alert and oriented x3. He has a sarcastic sense of humor but cooperative when redirected. He became extremely tachypneic and dropped to 82% on room air while using urinal at bedside. Patient placed on 3 L NC and pulse ox. Exp wheezing with
exertion. Pt reports that he wears 4L NC for exertion at home, but admits to non compliance. Resp therapy completed ambulation pulse ox assess and pt must where oxygen at discharge. arrived and pt placed on personal oxygen tank, wheelchair
transport to hospital entrance. Pt and had no further questions and verbalized importance of completing antibiotics and steroids. Will follow up with ENT and primary
== END 2025-09-03 14:30 | disposition home or self-care (01) | DRG 153 ==
LOC: IMU 22:54
PROVIDERS: ADMITTING PHYSICIAN Hospitalist; ATTENDING PHYSICIAN Internal Medicine; CONSULT PHYSICIAN Student in an Organized Health Care Education/Training Program; EMERGENCY PHYSICIAN Emergency Medicine; FAMILY PHYSICIAN Nurse Practitioner Family; OTHER PHYSICIAN Student in an Organized Health Care Education/Training Program
DX: J04.30 Supraglottitis, unspecified, without obstruction (principal); J36 Peritonsillar abscess; J96.11 Chronic respiratory failure with hypoxia; J43.9 Emphysema, unspecified; R49.0 Dysphonia; R05.9 Cough, unspecified; E78.00 Pure hypercholesterolemia, unspecified; I10 Essential (primary) hypertension; I25.10 Atherosclerotic heart disease of native coronary artery without angina pectoris; I71.40 Abdominal aortic aneurysm, without rupture, unspecified; R59.0 Localized enlarged lymph nodes; I48.0 Paroxysmal atrial fibrillation; K21.9 Gastro-esophageal reflux disease without esophagitis; M48.02 Spinal stenosis, cervical region; Z96.641 Presence of right artificial hip joint; Z96.89 Presence of other specified functional implants; Z95.5 Presence of coronary angioplasty implant and graft; Z87.891 Personal history of nicotine dependence; Z79.01 Long term (current) use of anticoagulants; Z99.81 Dependence on supplemental oxygen
CPT/HCPCS: 70491; 80053; 85025; 86308; 87040; 93005; 94640; 94761; 96361; 96365; 96375; 99285; Q9967

== ENCOUNTER 2025-09-05 14:29 | Inpatient (IN) | payer MEDICARE, OTHER, SELFPAY ==
[2025-09-05] VITALS (28 sets, daily range): BP systolic 95–139; BP diastolic 59–115; BMI 32.4; BMI 32.0
[2025-09-05] MEDS: CARDIZEM 10 MG IV (10:41)
[2025-09-05] MEDS: CARDIZEM 125 IV ×2 (10:42→18:51)
[2025-09-05 10:52] LABS: INR 1.14; PT 14.9 Sec (11.4-14.6)
[2025-09-05 10:56] LABS: Hematocrit 44.4 % (39.0-52.0); Hemoglobin 13.9 g/dL (13.0-18.0); Mean Corp Hgb Conc. 31.3 g/dL (33.0-37.0); Mean Corpuscular Volume 76.0 fL (80.0-94.0); Nucleated Red Blood Cells % 0 % (-); Platelet Count 303 10^3/uL (130-400); Red Cell Dist. Width 18.7 % (11.5-14.5)
[2025-09-05 11:01] LABS: ALT (SGPT) 30 U/L (0-50); AST (SGOT) 30 U/L (17-59); Albumin 4.0 g/dl (3.5-5.0); Alkaline Phosphatase 75 U/L (38-126); Blood Urea Nitrogen 23 mg/dl (9-20); Calcium 8.2 mg/dl (8.4-10.2); Carbon Dioxide 22 mmol/L (22-30); Chloride 107 mmol/L (98-107); Estimated Creatinine Clearance 75 ml/min; Glucose 247 mg/dl (70-99); Potassium 4.1 mmol/L (3.5-5.1); Sodium 138 mmol/L (135-145); Total Protein 6.8 g/dl (6.3-8.2); eGFR > 60.00
[2025-09-05 13:07] LABS: Troponin I 0.020 ng/ml
--- NOTE | 2025-09-05 13:27 | CON.CAR ---
Addendum entered and electronically signed by Nav Moon MD 09/05/25 16:16:
I saw and evaluated the patient with the resident. I was present for the anderson portions of the history and exam and personally performed the MDM, including reviewing labs, assessing the patient, and directing management plan. I agree with the
residents note with my comments/adjustments below:
70-year-old gentleman with past medical history of paroxysmal atrial fibrillation diagnosed in 04/2025 managed on Eliquis, CAD with prior PCI in 2011, COPD, NORM with inspire device, hyperlipidemia who was recently discharged 2 days ago for a
peritonsillar abscess. He is now being treated with steroids and antibiotics. Today he began to feel chest pain that was a pressure in his chest rating to his jaw, he denies any palpitations. He took 2 nitroglycerin but did not have any relief so
he sought care. In the ED he was noted to be in atrial fibrillation with rapid ventricular response. Pain resolved spontaneously. He so far has received 10 mg IV bolus of diltiazem and initiated on a drip. Old records reviewed and echocardiogram
done in April 2025 showed EF 65 to 70%, mild to moderate mitral regurgitation. He had a hospitalization in April with A-fib with RVR and type II NSTEMI after cardiac catheterization did not reveal any obstructive lesions. At that time troponin peak
was 0.2. On exam he is pleasant in no apparent distress with an irregularly irregular rate and rhythm. He has clear lung sounds bilaterally, abdomen obese, lower extremity without any pitting edema. Labs show hemoglobin of 13.9 chemistry sodium
138 potassium 4.1 BUN 23 creatinine 1.1 troponin 0.02 chest x-ray image personally reviewed showed inspire device in place no pulmonary edema on my review, official read says coarse interstitial markings consistent with COPD/fibrosis. EKG tracing
shows atrial fibrillation with rapid ventricular response nonspecific ST wave abnormality.
Assessment:
Atrial fibrillation with rapid ventricular response.
Chest pain likely due to tachyarrhythmia.
CAD status post PCI 2011, chronic
Peritonsillar abscess.
NORM status post inspire device
COPD
Plan:
During recent hospitalization Eliquis was held, would not proceed to cardioversion as onset is not clear. His chest pain resolved while he remains in asymptomatic A-fib so unclear when he had recurrent arrhythmia. Will attempt rate control with IV
diltiazem. Will repeat bolus and continue drip. Can add beta-etienne as needed. After treatment of his peritonsillar asked test has been completed could pursue rhythm control if remains in the rhythm as an outpatient. However if RVR persist
despite our management may need to consider CHELSIE cardioversion if able given peritonsillar abscess.
Given no chest pain no recent PCI would stop aspirin as he is on chronic Eliquis.
Finished treatment for peritonsillar abscess.
Continue treatments for COPD and NORM.
Original Note:
Consultation
Consultation Request
Date/Time Consultation Requested: 09/05/2025
Date/Time Consultation Performed: 09/05/2025
Requesting Provider: Fabián Linder
Performing Provider: Nav Moon
Reason for Consultation: Afib w/ RVR
Medical History
-
Chief Complaint: Chest pain
History of Present Illness:
Erlin is a 70-year-old male with a past medical history of paroxysmal A-fib (newly diagnosed in 04/2025, now on Eliquis), CAD with stent placement in 2011, COPD on chronic home O2 (2 L at rest, 4 L on ambulation per last discharge), hypertension,
stable AAA (last imaged July 2023), hyperlipidemia with recent admission for peritonsillar abscess who presented with complaints of several hours of of chest pain/pressure radiating to the jaw, weakness.
Patient had recently been seen in [facility] for complaints of odynophagia, diagnosed with peritonsillar abscess, started on IV antibiotics and ultimately discharged on 09/03 with p.o. antibiotics and p.o. steroid taper. He reports significant improvement
in prior symptoms related to peritonsillar abscess, without fevers or chills. The morning of admission on 09/05 he reports waking up feeling significantly weaker than usual, went into the shower and then began experiencing chest pain/pressure which
felt 'like a brick on my chest'and radiated into the jaw. He was not experiencing any worsening shortness of breath from baseline, palpitations, or lightheadedness. He tried to take 2 nitro which did not relieve the pressure. He tried
administering home O2, which also did not help. He then had his drive him to the ED.
Of note, he has a history of NORM for which he had an inspire device placed in 2023. He was discharged on 09/03 with instructions for baseline home O2 of 2L at rest and 4L on exertion, though he did not maintain this while home. His Eliquis was held
during prior admission and resumed on discharge.
On arrival to the ED, ECG was done which demonstrated atrial fibrillation with RVR. He was given IV diltiazem 10 mg and started on diltiazem drip. Cardiology was consulted for A-fib with RVR.
Past Medical History
Past Medical History: Other (see hpi)
Past Surgical History: Other (Cardiac catheterization in 2011, discectomy, vasectomy, inspire implant 2023, total right hip arthroplasty 2022, reconstructive urethroplasty in 2022)
Social History
Tobacco: Former Smoker
Alcohol: Occasional
Drug: None
Personal:
Living: With Family
Family History
Family History: Reviewed & Not Pertinent
Allergies / Home Medications
Allergy/AdvReac Type Severity Reaction Status Date / Time
No Known Allergies Allergy Verified 09/05/25 10:11
�Medication �Instructions �Recorded �Confirmed �Type
nitroglycerin 0.4 mg sublingual 0.4 mg sublingual [id number] PRN 12/12/11 09/05/25 History
tablet chest pain
atorvastatin 20 mg tablet 20 mg PO QPM High Cholesterol 04/30/16 09/05/25 History
cholecalciferol (vitamin D3) 25 25 mcg PO QPM Supplement 08/02/23 09/05/25 History
mcg (1,000 unit) tablet (Vitamin
D3)
coenzyme Q10 100 mg capsule 100 mg PO QPM Supplement 08/02/23 09/05/25 History
(CoQ-10)
budesonide 160 mcg-glycopyr 9 2 inh inhalation R BID 05/27/25 09/05/25 History
mcg-formot 4.8 mcg/actuation HFA Lung/Breathing Issues
inhaler (Breztri Aerosphere)
cyanocobalamin (vitamin B-12) 1,000 mcg PO QPM Supplement 05/27/25 09/05/25 History
1,000 mcg tablet
omeprazole 20 mg tablet,delayed 20 mg PO QPM Gastrointestinal Issue 05/27/25 09/05/25 History
release
therapeutic multivitamin 1 tab PO QPM Supplement 05/27/25 09/05/25 History
trazodone 100 mg tablet 50 mg PO HS Sleep 05/27/25 09/05/25 History
apixaban 5 mg tablet (Eliquis) 5 mg PO BID #60 tabs 05/29/25 09/05/25 Rx
prednisone 10 mg tablet 40 mg (4 x 10 mg) PO DAILY #20 tabs 09/03/25 09/05/25 Rx
amoxicillin 875 mg-potassium 1 tab PO BID 09/05/25 09/05/25 History
clavulanate 125 mg tablet
aspirin 81 mg tablet 81 mg PO QPM 09/05/25 09/05/25 History
losartan 50 mg tablet 50 mg PO QPM 09/05/25 09/05/25 History
Review of Systems
-
History Source: Patient
All other systems: Negative unless noted
Physical Exam
Vital Signs
Temp Pulse Resp BP Pulse Ox
97.5 F 146 21 114/89 94
09/05/25 10:11 09/05/25 12:30 09/05/25 12:30 09/05/25 12:30 09/05/25 12:30
Lab Results
09/05/25 10:31
09/05/25 10:31
Troponin I 0.020 ng/ml 09/05/25 12:35
Physical Exam
General: Well Developed, Well Nourished, No Apparent Distress and Comfortable
HEENT: Normocephalic, Anicteric and Moist Mucous Membranes
Respiratory: Clear and Non Labored Respirations; Negative Wheezes, Crackles or Rhonchi
Cardiac: S1/S2 and Regular Rhythm; Negative Murmur or Rub
Breast: N/A
GI: Soft, Non Tender and Normal Bowel Sounds
Musculoskeletal: No Clubbing, No Cyanosis and No Edema
Skin: Warm and Dry
Neuro: AO x 3
Psych: Calm
Impression / Plan
-
Erlin is a 70-year-old male with a past medical history of paroxysmal A-fib (newly diagnosed in 04/2025, now on Eliquis), CAD with stent placement in 2011, COPD on chronic home O2 (2 L at rest, 4 L on ambulation per last discharge), hypertension,
stable AAA (last imaged July 2023), hyperlipidemia, NORM with inspire device placed 2023, with recent admission for peritonsillar abscess who presented with complaints of several hours of of chest pain/pressure radiating to the jaw, weakness.
#Atrial Fibrillation w/ RVR
#Chest pain/discomfort
Pt with newly diagnosed paroxysmal afib as of April 2025, COPD, NORM with new acute peritonsillar abscess likely exacerbating Afib at this time.
- ECG showing afib w/ RVR in the 150-160s
- Tele monitor showing same with few runs of NSVT
- remains asymptomatic and hemodynamically stable
- troponins 0.02, check additional in a few hours, if stable will not need to trend any further
- Given 10mg Diltiazem IV and started on diltiazem ggt
- will give additional 15mg IV Diltiazem per weight based bolus dosing and observe
- maxed out at 15mg on ggt - OK to continue
- if rate control suboptimal after this, can add IV Lopressor as BP tolerates
- resume Eliquis 5mg BID
- Will opt for rate control strategy, suspect as acute infection continues to resolve his Afib will improve
- If he remains with RVR despite med management, he can follow up with cardiology OP to schedule for Cardioversion; will need CHELSIE given lapse in Eliquis within the last 30d
#CAD, s/p LCX stenting 2011
#HTN
#HLD
- c/w statin, losartan
- pt was put on primary ppx Aspirin years ago, w/o any new CVA or PAD/peripheral stents -- will stop Aspirin
#Peritonsillar Abscess
#COPD on chronic home O2 therapy
#GERD
--- NOTE | 2025-09-05 13:40 | HPS.HSE ---
Addendum entered and electronically signed by Marisa Noel MD, Resident 09/08/25 16:27:
Allergies
Allergy/AdvReac Type Severity Reaction Status Date / Time
No Known Allergies Allergy Verified 09/05/25 10:11
Home Medications
nitroglycerin 0.4 mg sublingual tablet 0.4 mg sublingual [id number] PRN chest pain 12/12/11
atorvastatin 20 mg tablet 20 mg PO QPM High Cholesterol 04/30/16
cholecalciferol (vitamin D3) 25 mcg (1,000 unit) tablet (Vitamin D3) 25 mcg PO QPM Supplement 08/02/23
coenzyme Q10 100 mg capsule (CoQ-10) 100 mg PO QPM Supplement 08/02/23
budesonide 160 mcg-glycopyr 9 mcg-formot 4.8 mcg/actuation HFA inhaler (Breztri Aerosphere) 2 inh inhalation R BID Lung/Breathing Issues 05/27/25
cyanocobalamin (vitamin B-12) 1,000 mcg tablet 1,000 mcg PO QPM Supplement 05/27/25
omeprazole 20 mg tablet,delayed release 20 mg PO QPM Gastrointestinal Issue 05/27/25
therapeutic multivitamin 1 tab PO QPM Supplement 05/27/25
trazodone 100 mg tablet 50 mg PO HS Sleep 05/27/25
apixaban 5 mg tablet (Eliquis) 5 mg PO BID #60 tabs 05/29/25
prednisone 10 mg tablet 40 mg (4 x 10 mg) PO DAILY #20 tabs 09/03/25
amoxicillin 875 mg-potassium clavulanate 125 mg tablet 1 tab PO BID Skin and soft tissue 09/05/25
aspirin 81 mg tablet 81 mg PO QPM Blood Clot Prevention/Tx 09/05/25
losartan 50 mg tablet 50 mg PO QPM Heart Disease/Condition 09/05/25
metoprolol succinate 25 mg tablet,extended release 24 hr 12.5 mg (1/2 x 25 mg) PO DAILY #30 tabs 09/07/25
Addendum entered and electronically signed by Onur Boston MD 09/06/25 16:41:
See update note
Original Note:
Family Physician
-
Family Physician: Nancy Martell
Chief Complaint
-
chest pain; afib with RVR
History of Present Illness
70yoM PMH AAA, afib with RVR, COPD with home oxygen, cardiac stent 2011, NORM with inspire, recent supraglottic infection presenting with onset of afib with RVR.
Pt was recently discharged from here 09/03/25 for peritonsillar abscess sent home on predisone and augmentin. Hoarse voice and trouble breathing fully resolved. Pt reports doing well at home yesterday.
This morning, pt woke up feeling diffusely weak. He began his usual routine when he began having profound crushing, chest pain that radiated to his jaw and back. He took 2 nitros that did not help. He proceeded to try to go about his usual routine
until he was so weak, he called his and waited for her to drive her to the hospital since he did not want to call EMS. Once he came to the ED, he received a bolus of diltiazem with a drip. He continues to be in afib but the chest pain has
completely resolved. He reported mild lightheadedness but no other symptoms denying blurry vision, headache, dizziness, SOB, nausea, vomiting, swelling, fever, chills.
Pt was initially diagnosed with afib in April. He reverted to regular sinus rhythm with diltiazem, after which he was placed on eliquis. Pt reports having to use his nitro a couple of times since the episode in April but the pain has never been as
severe as it was this time. He has a hx of GERD and usually attributes pain to reflux rather than cardiac origin. The diffuse weakness and crushing nature of this pain alarmed him mroe than usual cluing him that it was cardiac.
Pt reports nonadherence to his home oxygen for COPD but complete adherence to all other PO medications.
Medical History
Past Medical History
Past Medical History: Reports Arrhythmia (paroxysmal afib 04/2025), CAD (stent placed in 2011), COPD (home 4L for exertion), GERD, HTN, Hypercholesterolemia and Other (AAA 4.9 cm, )
Additional Past Medical History:
disc herniation
Past Surgical History: Reports Orthopedic (R hi)
Social History
Tobacco: Former Smoker
Personal:
Living: With Family
Family History
Family History: Not pertinent
Allergies / Home Medications
Allergies reflects when Allergies were last updated in [employer].
Home Medications with original date entered in [employer] [facility]
Allergy/Medication List:
NKDA
Review of Systems
-
History Source: Patient
A 12 point ROS was completed and negative except as noted: Yes
Cardiac: Reports Chest Pain (resolved); Denies Diaphoresis or Palpitations
Abdomen/GI: Denies Abdominal Pain, Nausea or Vomiting
Physical Exam
Vital Signs
Vital Signs
Temp Pulse Resp BP Pulse Ox
97.5 F 146 21 114/89 94
09/05/25 10:11 09/05/25 12:30 09/05/25 12:30 09/05/25 12:30 09/05/25 12:30
Physical Exam
General: Well Developed, Well Nourished, No Apparent Distress, Comfortable and Conversant
HEENT: NormoCephalic, Anicteric, Atraumatic, Nose Appears Normal and Ears Appear Normal; No Neck Mass
Respiratory: Clear and Non Labored Respirations
Cardiac: S1/S2 and Regular Rhythm
GI: Soft, Non Tender and Non Distended
Genito-urinary: Deferred by me
Musculoskeletal: No Clubbing, No Cyanosis and No Edema
Skin: Warm and Dry
Neuro: AO x 3, Nonfocal/grossly intact and No Sensory Deficits
Psych: Calm
Laboratory Results
-
09/05/25 10:31
09/05/25 10:31
Laboratory Results
PT 14.9 Sec (11.4-14.6) H 09/05/25 10:31
INR 1.14 09/05/25 10:31
Total Bilirubin 0.5 mg/dl (0.2-1.3) 09/05/25 10:31
AST 30 U/L (17-59) 09/05/25 10:31
ALT 30 U/L (0-50) 09/05/25 10:31
Alkaline Phosphatase 75 U/L (38-126) 09/05/25 10:31
Troponin I 0.020 ng/ml 09/05/25 12:35
Impression/Plan
-
IMPRESSION:
70yoM PMH AAA, afib with RVR, COPD with home oxygen, cardiac stent 2011, NORM with Inspire, recent supraglottic infection presenting with onset of afib with RVR.
Pt reports waking up feeling weak presumably in afib. Crushing chest pain resolved without intervention once in ED; pt unsure if it resolved before or after the diltiazem was started. Concern for possible ischemic event. Defer recommendations to
cardiology. Recent infection, still on augmentin and prednisone. AFVSS. CBC and electrolytes WNL. Mild leukocytosis given on steroid taper.
Afib with RVR in setting of recent infection. Cardiology following to manage rate control and to consider necessity of cardioversion.
CXR: Coarse interstitial markings in the lung bases are likely changes of COPD/fibrosis. Acute pneumonia is difficult to exclude completely.
ECG:ATRIAL FIBRILLATION WITH RAPID VENTRICULAR RESPONSE
MARKED ST ABNORMALITY, POSSIBLE LATERAL SUBENDOCARDIAL INJURY
PLAN:
#paroxysmal afib with RVR
- Continue home eliquis
- Appreciate cardiology recommendations. Plan to rate control rather than cardiovert due to afib in setting of infection.
- Echo
- TSH pending
- troponin pending
#GERD
- continue home PPI
#peritonsillar abscess
- Continue augmentin and prednisone
#COPD
- continue home oxygen
- Continue home inhaler
#AAA
- stable. Outpt f/u
#NORM
- implanted inspire
- continue home trazodone for sleep
Diet: NPO
Code status: Full
DVT prophylaxis: on eliquis
[2025-09-05] MEDS: CARDIZEM 15 MG IV (14:04)
--- NOTE | 2025-09-05 14:08 | W.PN.UPDATE ---
Update Note
Progress Note Update
70 male history of COPD on home O2 however noncompliant, atrial fibrillation, recent admission for peritonsillar abscess who presents with acute onset chest discomfort requiring nitroglycerin. Brought to the hospital found to have atrial
fibrillation with RVR into the 140s. Started on Cardizem drip. Per himself and his he is islam with taking Eliquis and does not miss a dose especially since his handles all of his medications.
Atrial fibrillation with RVR
Diltiazem
Eliquis
TSH
2D echo
Cardiology consulted
Monitor on telemetry
Chest pain/discomfort
Likely related to atrial fibrillation with RVR
Reviewed chart, April 2025 had a left heart catheterization that demonstrated nonobstructive CAD mildly elevated LV filling pressures and no aortic stenosis at that time plan for aggressive secondary prevention of CAD along with anticoagulation for
atrial fibrillation
Troponins 0.02. Will check 1 more if flat or downtrending then would not check any further.
Cardiology consulted
Hyperlipidemia
Continue statin
COPD continue MDIs
No evidence of wheezing
Will need outpatient pulmonary follow-up
Hypertension
Continue to hypertensive
GERD
Continue PPI
Peritonsillar abscess on recent admission
Continue antibiotics steroids as prescribed till end date
Read, reviewed, and agree. See same day progress note for additional details. Time spent reviewing records in EMR, med rec, consults, notes, d/w consultants, nursing, family, and CM
[2025-09-05] MEDS: LOPRESSOR 12.5 MG PO ×3 (16:13→23:48)
--- NOTE | 2025-09-05 16:19 | PTCARENOTE ---
arrived from ED via stretcher, settled in room, galileo gtt infusing 15 mg/hr. In good spirits, verbalizing no distress, CP, or SOB. Does note arms bilat feel a little heavy but notes this is an improvement from earlier today. VS noted.
Reviewed plan of care. See admission documentation.
[2025-09-05 17:15] LABS: TSH 5.43 uIU/ml (0.47-4.68)
[2025-09-05] MEDS: COZAAR 50 MG PO (17:36)
[2025-09-05] MEDS: PROTONIX 40 MG PO (17:36)
[2025-09-05] MEDS: THERAGRAN 1 TABLET PO (17:37)
[2025-09-05] MEDS: LIPITOR 20 MG PO (17:37)
[2025-09-05] MEDS: VITAMIN D3 (cholecalciferol) 25 MCG PO (17:37)
[2025-09-05] MEDS: VITAMIN B-12 1000 MCG PO (17:40)
[2025-09-05] MEDS: SYMBICORT 160/4.5 MCG INHALER 2 PUFF INH (19:43)
[2025-09-05] MEDS: AUGMENTIN 875 MG/125 MG 1 TABLET PO (19:48)
[2025-09-05] MEDS: ELIQUIS 5 MG PO (19:48)
[2025-09-05 20:28] LABS: Blood Urea Nitrogen 21 mg/dl (9-20); Calcium 8.1 mg/dl (8.4-10.2); Carbon Dioxide 21 mmol/L (22-30); Chloride 107 mmol/L (98-107); Estimated Creatinine Clearance 82 ml/min; Glucose 190 mg/dl (70-99); Potassium 4.5 mmol/L (3.5-5.1); Sodium 136 mmol/L (135-145); eGFR > 60.00
[2025-09-05 20:29] LABS: Magnesium 2.0 mg/dl (1.6-2.3)
[2025-09-05 20:37] LABS: Troponin I 0.075 ng/ml
--- NOTE | 2025-09-05 21:06 | W.PN.UPDATE ---
Update Note
Progress Note Update
change of shift patient had 'chest pressure', went away on its own. EKG noted with changes. BMP Trop repeated.
patient seen and evaluated. Patient pleasant, denies any chest pain at present, states it comes on and off, SOB which he states is chronic and wears oxygen at home and here as well.
Trop 0.020-> 0.075.
HR >135 BP 95/70 98.5
On Cardizem drip at 15mg/hr, recived 2.5mg PO metoprolol at 1745, on Eliquis 5mg PO BID
Addressed EKG results and HR BP to [employer] ton call.
Possible CHELSIE in AM. Advise cautious HR Control.
will maintain NPO. Trend Trop
AM VS 101/60 90 18 97.7 97%
[2025-09-05 22:12] LABS: Troponin I 0.073 ng/ml
[2025-09-05] MEDS: DESYREL 50 MG PO (22:40)
--- NOTE | 2025-09-05 22:43 | PTCARENOTE ---
Received patient at change of shift. Afib on the monitor, HR in the 130s. VSS on 2L nasal cannula. Cardizem running as per protocol, see documentation. NPO midnight. No complaints from pt at this time, call schneider within reach.
[2025-09-06] VITALS (14 sets, daily range): BP systolic 96–122; BP diastolic 50–88
[2025-09-06] MEDS: TYLENOL 650 MG PO (00:50)
--- NOTE | 2025-09-06 01:32 | PTCARENOTE ---
Pt rang call schneider complaining of 4/10 chest pain radiating to his jaw. Afib on the monitor, HR in the 130s. 103/83. 95% on 2L. Pt refused SL Nitro stating, 'it does nothing for me.' Education provided. TRANSPORTATION MANAGER Sohan Sr made aware. EKG obtained. Tylenol
administered. Chest pain now 2/10.
[2025-09-06] MEDS: CARDIZEM 125 IV ×2 (01:34→10:51)
[2025-09-06 04:04] LABS: Hematocrit 42.3 % (39.0-52.0); Hemoglobin 13.4 g/dL (13.0-18.0); Mean Corp Hgb Conc. 31.7 g/dL (33.0-37.0); Mean Corpuscular Volume 76.9 fL (80.0-94.0); Platelet Count 310 10^3/uL (130-400); Red Cell Dist. Width 18.1 % (11.5-14.5)
[2025-09-06 04:22] LABS: Blood Urea Nitrogen 21 mg/dl (9-20); Calcium 8.2 mg/dl (8.4-10.2); Carbon Dioxide 23 mmol/L (22-30); Chloride 108 mmol/L (98-107); Estimated Creatinine Clearance 91 ml/min; Glucose 110 mg/dl (70-99); Potassium 4.2 mmol/L (3.5-5.1); Sodium 136 mmol/L (135-145); eGFR > 60.00
[2025-09-06 04:36] LABS: Troponin I 0.080 ng/ml
[2025-09-06] MEDS: LOPRESSOR 12.5 MG PO (06:23)
[2025-09-06] MEDS: SPIRIVA RESPIMAT 2.5 MCG 2 PUFF INH (07:48)
[2025-09-06] MEDS: SYMBICORT 160/4.5 MCG INHALER 2 PUFF INH ×2 (07:49→20:55)
--- NOTE | 2025-09-06 09:32 | W.PN.HOSP.TC ---
Addendum entered and electronically signed by Onur Boston MD 09/06/25 16:47:
Atrial fibrillation with RVR
Now converted to SR
Continue eliquis
Cards rec to hold av dre blocking agents for concern for sss
Outpatietn ablation referral
Chest pain/discomfort
Likely related to atrial fibrillation with RVR
Reviewed chart, April 2025 had a left heart catheterization that demonstrated nonobstructive CAD mildly elevated LV filling pressures and no aortic stenosis at that time plan for aggressive secondary prevention of CAD along with anticoagulation for
atrial fibrillation
Troponins 0.02. Will check 1 more if flat or downtrending then would not check any further.
Cardiology consulted
Hyperlipidemia
Continue statin
COPD continue MDIs
No evidence of wheezing
Will need outpatient pulmonary follow-up
Hypertension
Continue to hypertensive
GERD
Continue PPI
Peritonsillar abscess on recent admission
Continue antibiotics steroids as prescribed till end date
Read, reviewed, and agree. See same day progress note for additional details. Time spent reviewing records in EMR, med rec, consults, notes, d/w consultants, nursing, family, and CM
Original Note:
Today's Communication/Plan
-
Plan reviewed with attending
Assessment / Plan
Assessment / Plan
70yoM AAA, afib with RVR, COPD with home oxygen, cardiac stent 2011, NORM with Inspire, recent supraglottic infection presenting with onset of afib with RVR.
Cardiology following. Pt had episode of chest pain overnight. Troponins trended max being 0.08 then reduced, pain reduced, no changes in ECG.
Pt converted later in morning. Cardizem and beta etienne held, managed by cardiology. Continue eliquis.
#paroxysmal afib with RVR
- Continue home eliquis
- Appreciate cardiology recommendations. Converted later in morning, cardizem and bb held.
- Echo
- TSH 5.43
- troponin pending
#GERD
- continue home PPI
#peritonsillar abscess
- Continue augmentin and prednisone taper
#COPD
#chronic respiratory failure
- continue home oxygen
- Continue home inhaler
#AAA
- stable. Outpt f/u
#NORM
- implanted inspire
- continue home trazodone for sleep
Diet: cardiac
Code status: Full
DVT prophylaxis: on eliquis
Anticipated Discharge: Within 24 hours
Subjective/Interval History
-
Date of Service: September 06, 2025
Pt reports having an episode of chest pain overnight that was not as severe as the one that brought him in, but was still severe. He refused nitroglycerin since he felt that it did not help yesterday morning so 'why waste the pill.' He describes
crushing pain that radiated to his neck and straight through to his back. He stated that the pain never went away, it just reduced with time. He had a reoccurence of the pain again at 10:22am.
In the room, he describes low level, persistent discomfort. Denies palpitations, SOB, dizziness, lightheadedness.
Objective Data
-
Labs:
Laboratory Results
09/06/25
03:27
WBC 12.6 H
Hgb 13.4
Hct 42.3
Plt Count 310
Sodium 136
Potassium 4.2
Chloride 108 H
Carbon Dioxide 23
BUN 21 H
Creatinine 0.9
Glucose 110 H
Calcium 8.2 L
Vital Signs:
Vital Signs
Temp Pulse Resp BP Pulse Ox
97.8 F 80 18 101/60 98
09/06/25 08:30 09/06/25 09:15 09/06/25 08:30 09/06/25 06:23 09/06/25 08:30
I&O
09/05/25 09/06/2509/07/25
06:59 06:59 06:59
Intake Total 405 / 405
Balance 405 / 405
Review of Systems
-
History Source: Patient
All other systems: Reviewed and negative
Cardiac: Reports Chest Pain
Physical Exam
-
General: Well Developed, Well Nourished, No Apparent Distress and Comfortable
HEENT: Normocephalic, Atraumatic and Moist Mucous Membranes
Respiratory: Clear to Auscultation and Non Labored Respirations
Cardiac: S1/S2 and Irregular Rhythm (afib in morning)
GI: Soft, Nontender and Nondistended
Musculoskeletal: No Edema
Skin: Warm and Dry
Neuro: AO x 3, No Motor Deficits and Nonfocal/Grossly Intact
Psych: Calm
[2025-09-06] MEDS: AUGMENTIN 875 MG/125 MG 1 TABLET PO ×2 (09:43→19:44)
[2025-09-06] MEDS: DELTASONE 30 MG PO (09:44)
--- NOTE | 2025-09-06 10:05 | PTCARENOTE ---
Received patient this morning resting in bed, IV cardizem infusing at 15mg/hr with HR in the 80's, remains in AF. TORRSE when walking to the bathroom but denies any chest pain. States he had left sided chest discomfort, a dull pain which resolved on
his own. TT to attending re: richard casper if planning on cardiac cath today and they will check with cardiology, remains NPO x meds.
--- NOTE | 2025-09-06 10:30 | CM ---
Chart reviewed. Patient is independent of ADLS, lives with his and grandson in a 1 STH, 0 DAPHNEY, 0 DME, wears Home O2 4L. Plan is for the patient to return home. CM to follow
[2025-09-06 10:52] LABS: Troponin I 0.077 ng/ml
[2025-09-06] MEDS: ELIQUIS 5 MG PO ×2 (12:02→19:44)
[2025-09-06] MEDS: LOPRESSOR PO (12:13)
--- NOTE | 2025-09-06 12:31 | PTCARENOTE ---
At 1128, patient had a conversion pause to SB with a HR in the 30's while speaking with the cardiology resident about CHELSIE. Karen roblero d/c'd. EKG done, BP 106/50, patient seen by Dr. Moon, at the bedside.
--- NOTE | 2025-09-06 12:46 | W.PN.CD ---
Addendum entered and electronically signed by Nav Moon MD 09/06/25 13:56:
I saw and evaluated the patient with the resident. I was present for the anderson portions of the history and exam and personally performed the MDM, including reviewing labs, assessing [ ], and directing management plan. I agree with the residents note
with my comments/adjustments below:
Overnight events noted, he does report he has been having some intermittent chest pressure at times still, no relation to exertion or position. It last for several minutes and goes away. He did not have any symptoms during his conversion from
A-fib with RVR to sinus rhythm. He is on oxygen and his states he has been short of breath just going to the bathroom. Currently he feels improved on exam he has a regular rate and rhythm with normal S1-S2, lungs with rales right greater than
left. No lower extremity edema.Troponin peak was 0.080. Telemetry atrial fibrillation and a flutter with RVR to better rate control and then sinus after approximately 4 to 5-second pause. Then EKG showed sinus bradycardia with competing
junctional rhythm. Of note when he was in a flutter, he did have nonspecific ST changes. Once converted back to sinus and junctional rhythm these ST changes are completely resolved.
Assessment:
A-fib/flutter with RVR: Converted into sinus with bradycardia and competing junctional. Will stop diltiazem and metoprolol and monitor his heart rate. Concern for Tachybrady syn but had been on max dilt and bb. Will keep off AV dre agents right
now. Patient has had 2 highly symptomatic episodes of A-fib, recommend referral for ablation after discharge.
Chest pain: Doubt ACS (recent cath, troponin less than it was at the time of normal cath, no dynamic EKG changes), likely secondary to tachyarrhythmia, also possibility is worsened reflux in the setting of steroid use. Finally, given the amount of
time he was in a tachyarrhythmia and dyspnea with bibasilar rales, suspect some small degree of volume overload. This is not completely unexpected. Will give a dose of Lasix and reassess.
Original Note:
Today's Communication / Plan
-
Stop Diltiazem ggt
stop lopressor
IV lasix 20mg
check probnp
Impression / Plan
-
Erlin is a 70-year-old male with a past medical history of paroxysmal A-fib (newly diagnosed in 04/2025, now on Eliquis), CAD with stent placement in 2011, COPD on chronic home O2 (2 L at rest, 4 L on ambulation per last discharge), hypertension,
stable AAA (last imaged July 2023), hyperlipidemia, NORM with inspire device placed 2023, with recent admission for peritonsillar abscess who presented with complaints of several hours of of chest pain/pressure radiating to the jaw, weakness.
#Atrial Fibrillation w/ RVR
Pt with newly diagnosed paroxysmal afib as of April 2025, COPD, NORM with new acute peritonsillar abscess likely exacerbating Afib at this time.
- ECG showing afib w/ RVR in the 150-160s
- Tele monitor showing same with few runs of NSVT
- remains asymptomatic and hemodynamically stable
- Initially on cardizem ggt and Lopressor 12.5mg PO q6
- conversion to sinus bradycardia w/ junctional beat
- hold cardizem/BB
- observe off medication and see where HR lands
- continue Eliquis 5mg BID
#Acute HFpEF
Most likely as a consequence of recent tachyarrhythmia
- recent Echo showing LVEF 60-65%
- sob at baseline per COPD; not on supplemental O2
- crackles present on exam, increased weight of 5lbs since admission
- will give IV lasix 20mg
- check ProBNP
#Chest pain/discomfort
#Nonischemic Myocardial Injury, secondary to Tachyarrhythmia
May also have component of GERD contributing given h/o reflux and recent prednisone use
- troponins .02 - .075 - .073 - .080 - .077
- ECG showing no new ischemic changes
- Echo shows no wall motion abnormalities
- recent cath in 04/2025 showed non obstructed vessels
#CAD, s/p LCX stenting 2011
#HTN
#HLD
- c/w statin, losartan
- pt was put on primary ppx Aspirin years ago, w/o any new CVA or PAD/peripheral stents -- stop Aspirin
#Peritonsillar Abscess
#COPD on chronic home O2 therapy
#GERD
Physical Exam
Vital Signs/Labs
Vital Signs
Temp Pulse Resp BP Pulse Ox
97.8 F 41 18 114/60 98
09/06/25 08:30 09/06/25 12:15 09/06/25 08:30 09/06/25 12:13 09/06/25 08:30
09/05/25 09/06/25 09/07/25
06:59 06:59 06:59
Actual Weight 98.2 kg
09/06/25 03:27
09/06/25 03:27
PT 14.9 Sec (11.4-14.6) H 09/05/25 10:31
INR 1.14 09/05/25 10:31
Magnesium 2.0 mg/dl (1.6-2.3) 09/05/25 20:01
TSH Cancelled 09/05/25 13:37
LAB Results
09/05/25 09/05/25 09/05/25
12:35 20:01 21:39
Troponin I 0.020 0.075 H* D 0.073 H*
09/06/25 09/06/25
03:27 10:15
Troponin I 0.080 H* 0.077 H*
Physical Exam
Constitutional: No acute distress and Comfortable
EENT: Anicteric and Moist mucous membranes
Cardiovascular: Rhythm/rate is irregular and Murmur/rub/gallop absent
Respiratory: Respiratory effort normal, Wheeze Absent and Crackles Present
GI: Soft, Non tender and Normal bowel sounds
Neuro/Psych: Alert and Oriented
Data Reviewed
-
Date of Service: September 06, 2025
[2025-09-06] MEDS: LASIX 20 MG IV (13:37)
[2025-09-06] MEDS: FLUSH (NSS) 1 FLUSH IV (13:38)
--- NOTE | 2025-09-06 15:09 | PN.CDI ---
CDI
- -
CDI:
Physician Documentation Request
Admit Date: 09/05/25 14:29
Dear Doctor Bert and Dr. Boston ,
Please review the following and provide your response in the progress notes.
Clinical Indicators:
Cardiology, consult, 107
#COPD on chronic home O2 therapy
PN, 09/06
#...afib with RVR, COPD with home oxygen, cardiac stent 2011,
#...NORM with Inspire, recent supraglottic infection presenting with onset of afib with RVR.
#COPD
#...- continue home oxygen
#...- Continue home inhaler
09/06/25 10:30 - Case Management Note
#...wears Home O2 4L.
Based on the above and your clinical assessment, please clarify which of the following accurately represents the patient's respiratory status:
Chronic respiratory failure
Hypoxia
Other(please specify)
Additional information for Respiratory Failure:
Recognized criteria for Respiratory Failure (Source: Mer SValentina Dye. 2019 October 19.
Documentation tips: Acute Respiratory Failure, The Hospitalist.)
Symptoms Please indicate type if known
1. Tachypnea, SOB, dyspnea Hypoxic
2. Use of accessory muscles Hypercapnic
3. Pallor or cyanosis Hypoxic and Hypercapnic
4. Anxiety or restlessness
5. Unable to speak in full sentences
Use of terms such as suspected, likely, concern for, or probable (associated with a specific diagnosis that is being evaluated, monitored, or treated as if it exists) are acceptable and can be coded in the inpatient setting, when documented at the
time of discharge.
Thank you,
Angi Charlton RN BSN CCDS
CDI Specialist
Please contact via tiger text
Please use your independent medical judgment in providing your response.
[2025-09-06] MEDS: VITAMIN B-12 1000 MCG PO (17:55)
[2025-09-06] MEDS: LIPITOR 20 MG PO (17:55)
[2025-09-06] MEDS: PROTONIX 40 MG PO (17:55)
[2025-09-06] MEDS: VITAMIN D3 (cholecalciferol) 25 MCG PO (17:55)
[2025-09-06] MEDS: THERAGRAN 1 TABLET PO (17:55)
[2025-09-06] MEDS: COZAAR 50 MG PO (19:45)
--- NOTE | 2025-09-06 21:56 | PTCARENOTE ---
Received pt @ change of shift. AAOx3, VSS-- SB on monitor. bedside. Discussed plan of care. Pt verbalizes understanding. Call schneider within reach.
[2025-09-06] MEDS: DESYREL PO (22:40)
[2025-09-07 03:59] VITALS: BP 129/80
[2025-09-07 07:30] VITALS: BP 136/76
[2025-09-07] MEDS: SYMBICORT 160/4.5 MCG INHALER 2 PUFF INH (07:48)
[2025-09-07] MEDS: SPIRIVA RESPIMAT 2.5 MCG 2 PUFF INH (07:49)
--- NOTE | 2025-09-07 08:00 | W.PN.HOSP.TC ---
Addendum entered and electronically signed by Onur Boston MD 09/07/25 12:58:
Atrial fibrillation with RVR
Now converted to SR
Continue eliquis
EP rec metop 12.5 daily
Outpatient ablation eval
Close follow up with cards
Chest pain/discomfort
Likely related to atrial fibrillation with RVR
Reviewed chart, April 2025 had a left heart catheterization that demonstrated nonobstructive CAD mildly elevated LV filling pressures and no aortic stenosis at that time plan for aggressive secondary prevention of CAD along with anticoagulation for
atrial fibrillation
Troponins 0.02. Will check 1 more if flat or downtrending then would not check any further.
Cardiology consulted
Hyperlipidemia
Continue statin
COPD continue MDIs
No evidence of wheezing
Will need outpatient pulmonary follow-up
Hypertension
Continue to hypertensive
GERD
Continue PPI
Peritonsillar abscess on recent admission
Continue antibiotics steroids as prescribed till end date
Read, reviewed, and agree. See same day progress note for additional details. Time spent reviewing records in EMR, med rec, consults, notes, d/w consultants, nursing, family, and CM
Original Note:
Today's Communication/Plan
-
Plan reviewed with attending
Pending cardiology recommendations
Possible discharge today with close outpt f/u for ablation
Assessment / Plan
Assessment / Plan
70yoM AAA, afib with RVR, COPD with home oxygen, cardiac stent 2011, NORM with Inspire, recent supraglottic infection presenting with onset of afib with RVR.
Cardiology following. Pt had episode of chest pain overnight. Troponins trended max being 0.08 then reduced, pain reduced, no changes in ECG.
Pt converted later in morning. Cardizem and beta etienne held, managed by cardiology. Continue eliquis. ECG demonstrates sinus bradycardia with junctional rhythm. Pending cardiology decision for inpt ablation vs chemical rate control given now
bradycardia.
Pt feels well. AFVSS with bradycardia since conversion out of afib.
#paroxysmal afib with RVR
#bradycardia with junctional rhythm
- Continue home eliquis
- Appreciate cardiology recommendations. Karen and allison held.
- Echo
- TSH 5.43
- troponin pending
#GERD
- continue home PPI
#peritonsillar abscess
- Continue augmentin and prednisone taper
#COPD
#chronic respiratory failure
- continue home oxygen
- Continue home inhaler
#AAA
- stable. Outpt f/u
#NORM
- implanted inspire
- continue home trazodone for sleep
Diet: cardiac
Code status: Full
DVT prophylaxis: on eliquis
Anticipated Discharge: Within 24 hours
Subjective/Interval History
-
Date of Service: September 07, 2025
Pt feels well this morning. Denies chest pain, SOB, swelling, palpitations.
Objective Data
-
Labs:
Laboratory Results
09/07/25
08:28
WBC 11.9 H
Hgb 13.5
Hct 42.5
Plt Count 287
Sodium 135
Potassium 4.5
Chloride 104
Carbon Dioxide 26
BUN 23 H
Creatinine 1.2
Glucose 116 H
Calcium 8.7
Total Bilirubin 0.7
AST 23
ALT 27
Alkaline Phosphatase 59
Vital Signs:
Vital Signs
Temp Pulse Resp BP Pulse Ox
97.4 F 60 18 136/76 98
09/07/25 07:30 09/07/25 08:00 09/07/25 07:52 09/07/25 07:30 09/07/25 07:52
I&O
09/06/25 09/07/25 09/08/25
06:59 06:59 06:59
Intake Total 405 / 405 1035 / 1035
Output Total 450 / 450
Balance 405 / 405 585 / 585
Review of Systems
-
History Source: Patient
All other systems: Reviewed and negative
Physical Exam
-
General: Well Developed, Well Nourished, No Apparent Distress and Comfortable
HEENT: Normocephalic, Atraumatic and Moist Mucous Membranes
Respiratory: Clear to Auscultation
Cardiac: Regular Rhythm (bradycardic) and S1/S2
GI: Soft, Nontender and Nondistended
Musculoskeletal: No Edema
Skin: Warm and Dry
Neuro: AO x 3, No Motor Deficits and Nonfocal/Grossly Intact
Psych: Calm
--- NOTE | 2025-09-07 08:05 | PTCARENOTE ---
Patient resting in bed this morning, remains in SB, offers no complaints, waiting for breakfast.
[2025-09-07] MEDS: ELIQUIS 5 MG PO (08:42)
[2025-09-07] MEDS: DELTASONE 20 MG PO (08:42)
[2025-09-07] MEDS: AUGMENTIN 875 MG/125 MG 1 TABLET PO (08:42)
[2025-09-07] MEDS: FLUSH (NSS) 1 FLUSH IV (08:43)
[2025-09-07 08:44] LABS: Hematocrit 42.5 % (39.0-52.0); Hemoglobin 13.5 g/dL (13.0-18.0); Mean Corp Hgb Conc. 31.8 g/dL (33.0-37.0); Mean Corpuscular Volume 75.8 fL (80.0-94.0); Platelet Count 287 10^3/uL (130-400); Red Cell Dist. Width 17.5 % (11.5-14.5)
[2025-09-07 09:08] VITALS: BMI 32.0
--- NOTE | 2025-09-07 09:11 | W.PN.CD ---
Addendum entered and electronically signed by Bam Salgado MD 09/07/25 10:47:
Reviewed with the Dr. Dickey who assessed patient. Recommendation low-dose Toprol-XL 12.5 mg a day with additional outpatient ablation evaluation. Can give dose early today observe and if patient continues to feel well and no other issues
from the hospital standpoint then could continue to consider discharge in afternoon
Original Note:
Today's Communication / Plan
-
- Patient with conversion pause 4.3 seconds. Patient also had junctional rhythm. IV Cardizem and metoprolol have been stopped. Patient has remained in sinus rhythm with no long pauses. 4 beats idioventricular rhythm. In further discussion with
patient he had been on metoprolol as an outpatient but it was decreased to low-dose and then discontinued due to the symptoms. Heart rate currently in the 50s.
- Options for medical therapy limited due to heart rate issues. Patient may ultimately benefit from an ablation but question is what best timing will be. Although pacing is an option with tachy/jose luis Would prefer to avoid pacing if possible.
Also patient currently being treated for peritonsillar abscess which would be another reason to avoid pacemaker.
- Based on the above patient will have further assessment by EP.
Impression / Plan
-
Erlin is a 70-year-old male with a past medical history of paroxysmal A-fib (newly diagnosed in 04/2025, now on Eliquis), CAD with stent placement in 2011, COPD on chronic home O2 (2 L at rest, 4 L on ambulation per last discharge), hypertension,
stable AAA (last imaged July 2023), hyperlipidemia, NORM with inspire device placed 2023, with recent admission for peritonsillar abscess who presented with complaints of several hours of of chest pain/pressure radiating to the jaw, weakness.
#Atrial Fibrillation w/ RVR
Pt with newly diagnosed paroxysmal afib as of April 2025, COPD, NORM with new acute peritonsillar abscess likely exacerbating Afib at this time.
- ECG showing afib w/ RVR in the 150-160s
- Tele monitor showing same with few runs of NSVT
- remains asymptomatic and hemodynamically stable
- Initially on cardizem ggt and Lopressor 12.5mg PO q6
- Patient with conversion pause 4.3 seconds. Patient also had junctional rhythm. IV Cardizem and metoprolol have been stopped. Patient has remained in sinus rhythm with no long pauses. 4 beats idioventricular rhythm. In further discussion with
patient he had been on metoprolol as an outpatient but it was decreased to low-dose and then discontinued due to the symptoms. Heart rate currently in the 50s.
- Options for medical therapy limited due to heart rate issues. Patient may ultimately benefit from an ablation but question is what best timing will be. Although pacing is an option with tachy/jose luis Would prefer to avoid pacing if possible.
Also patient currently being treated for peritonsillar abscess which would be another reason to avoid pacemaker.
- Based on the above patient will have further assessment by EP.
- continue Eliquis 5mg BID
#Acute HFpEF
- improved
Most likely as a consequence of recent tachyarrhythmia
- recent Echo showing LVEF 60-65%
- sob at baseline per COPD; not on supplemental O2
- crackles present on exam, increased weight of 5lbs since admission
-
#Chest pain/discomfort
#Nonischemic Myocardial Injury, secondary to Tachyarrhythmia
May also have component of GERD contributing given h/o reflux and recent prednisone use
- troponins .02 - .075 - .073 - .080 - .077
- ECG showing no new ischemic changes
- Echo shows no wall motion abnormalities
- recent cath in 04/2025 showed non obstructed vessels
#CAD, s/p LCX stenting 2011
#HTN
#HLD
- c/w statin, losartan
- pt was put on primary ppx Aspirin years ago, w/o any new CVA or PAD/peripheral stents -- stop Aspirin
#Peritonsillar Abscess
#COPD on chronic home O2 therapy
#GERD
Physical Exam
Vital Signs/Labs
Vital Signs
Temp Pulse Resp BP Pulse Ox
97.4 F 60 18 136/76 98
09/07/25 07:30 09/07/25 08:00 09/07/25 07:52 09/07/25 07:30 09/07/25 07:52
09/06/25 09/07/25 09/08/25
06:59 06:59 06:59
Actual Weight 98.2 kg 98.1 kg
09/07/25 08:28
PT 14.9 Sec (11.4-14.6) H 09/05/25 10:31
INR 1.14 09/05/25 10:31
Magnesium 2.0 mg/dl (1.6-2.3) 09/05/25 20:01
TSH Cancelled 09/05/25 13:37
09/06/25
03:27
Psv-P-Mpswzklacgi Pept 3880
LAB Results
09/05/25 09/05/25 09/05/25
12:35 20:01 21:39
Troponin I 0.020 0.075 H* D 0.073 H*
09/06/25 09/06/25 09/06/25
03:27 10:15 15:30
Troponin I 0.080 H* 0.077 H* Cancelled
Physical Exam
Constitutional: No acute distress
Cardiovascular: Rhythm & rate is regular
Respiratory: Wheeze Absent and Rhonchi Absent
GI: Soft, Non tender and Normal bowel sounds
Neuro/Psych: Alert and Oriented
Data Reviewed
-
Date of Service: September 07, 2025
Medical Decision Making: Reviewed Test Results
X-Ray/CT/US/MRI/NUC/PET: Report Reviewed by me
Medical Tests (PFT, Pathology etc): Report Reviewed by me
Labs: Labs Reviewed by me
[2025-09-07 09:41] LABS: ALT (SGPT) 27 U/L (0-50); AST (SGOT) 23 U/L (17-59); Albumin 3.8 g/dl (3.5-5.0); Alkaline Phosphatase 59 U/L (38-126); Blood Urea Nitrogen 23 mg/dl (9-20); Calcium 8.7 mg/dl (8.4-10.2); Carbon Dioxide 26 mmol/L (22-30); Chloride 104 mmol/L (98-107); Estimated Creatinine Clearance 68 ml/min; Glucose 116 mg/dl (70-99); Potassium 4.5 mmol/L (3.5-5.1); Sodium 135 mmol/L (135-145); Total Protein 6.4 g/dl (6.3-8.2); eGFR > 60.00
[2025-09-07 10:59] VITALS: BP 141/83
--- NOTE | 2025-09-07 11:01 | CM ---
Chart reviewed. Patient is independent of ADLS, lives with his in a 1 STH, 0 DAPHNEY, 0 DME. Patient wears home O2 4L. Plan is for the patient to return home. CM to follow
--- NOTE | 2025-09-07 11:49 | W.DCSUMMARY ---
Documented by User: Marisa Noel MD, Resident 09/07/25 15:40
Discharge Summary
Discharge Data
Date of Admission: 09/05/25
Date of Discharge: 09/07/25
-
Pending Results: No
Hospital Course
70yoM AAA, afib with RVR, COPD with home oxygen, cardiac stent 2011, NORM with Inspire, recent supraglottic infection presenting with onset of afib with RVR. BP stable, pt symptoms stabilized by time presented to ED. Upon presentation, he was started
on cardizem drip. Electrolytes and CBC WNL. Continued home medications.
Cardiology following, continued on cardizem drip. Pt had episode of chest pain overnight, pt refused nitroglycerin. Troponins trended max being 0.08 then reduced, associated with strain, pain improved, no changes in ECG overnight. AFVSS.
Electrolytes and CBC WNL.
Pt converted later in morning on day 2 of admission spontaneously. Asymptomatic. Cardizem and beta etienne held. Continued eliquis. ECG demonstrates sinus bradycardia with junctional rhythm, st changes resolved. Pt was not having bradycardic
symptoms, resting comfortably in bed. Metoprolol 12.5 restarted and monitored for 1 dose before discharge.
Outpt follow up ablation needed.
Presenting ECG: ATRIAL FLUTTER WITH 2:1 A-V CONDUCTION
NONSPECIFIC ST ABNORMALITY
Converted ecg: sinus bradycardia with competing junctional rhythm
Echo:
1. Normal biventricular size and systolic function without regional wall motion abnormality.
2. Mild to moderate mitral regurgitation.
3. Aortic sclerosis without stenosis.
4. No significant change from prior on 05/29/2025.
Discharge Plan
-
Patient Disposition: Home (Routine Discharge)
Discharge Diagnosis/Procedures: paroxysmal atrial fibrillation with rapid ventricular rate
Diet: Low Cholesterol
Activity: No restrictions
Driving Restrictions: As prior to admission
Referrals:
Nancy Martell CRNP [Family Provider, Family Practice]
Additional Discharge Medication Instructions: Please see PCP to follow up with thyroid function tests in 4 weeks.
Prescriptions:
New
metoprolol succinate 25 mg tablet extended release 24 hr
12.5 mg PO DAILY Qty: 30 0RF
Continued
nitroglycerin 0.4 MG tablet, sublingual
0.4 mg sublingual [id number] PRN (Reason: chest pain)
atorvastatin 20 MG tablet
20 mg PO QPM
coenzyme Q10 [CoQ-10] 100 mg Capsule
100 mg PO QPM
cholecalciferol (vitamin D3) [Vitamin D3] 25 mcg (1,000 unit) Tablet
25 mcg PO QPM
Breztri Aerosphere 160-9-4.8 mcg/actuation Hfa Aerosol Inhaler
2 inh INHALATION R BID
cyanocobalamin (vitamin B-12) 1,000 mcg Tablet
1,000 mcg PO QPM
trazodone 100 mg Tablet
50 mg PO HS
therapeutic multivitamin Tablet
1 tab PO QPM
omeprazole 20 mg Tablet,Delayed Release (Dr/Ec)
20 mg PO QPM
Eliquis 5 mg Tablet
5 mg PO BID Qty: 60 0RF
prednisone 10 mg tablet
40 mg PO DAILY Qty: 20 0RF
Rx Instructions:
40 mg X2 days, 30 mg X 2 days, 20 mg X2 days, 10 mg X2 days
aspirin 81 mg Tablet
81 mg PO QPM
losartan 50 mg tablet
50 mg PO QPM
amoxicillin-pot clavulanate 875-125 mg tablet
1 tab PO BID
Rx Instructions:
FOR 13 DAYS STARTING 09/03/25
Discharge Orders:
Discharge Patient (As Directed); Ordered 09/07/25
Ordered By: Marisa Noel
Care Plan Goals
Care Plan Goals:
Problem: Readiness for enhanced knowledge related to diagnosis and treatment plan
Goal: Understand your diagnosis and treatment plan needs, including medications if applicable.
Instructions: Know your diagnosis, underlying causes and treatment plan options, including medications if applicable. Consult with your health care team to learn about your diagnosis and treatment plan, including medications if applicable.
Discharge Date and Time
Discharge Date/Time: 09/07/25 18:25
Print Language: BELARUSIAN

Documented by User: Onur Boston MD 09/08/25 17:10
Discharge Summary
Discharge Data
Date of Admission: 09/05/25
Date of Discharge: 09/08/25
Discharge Plan
-
Patient Disposition: Home (Routine Discharge)
Discharge Diagnosis/Procedures: paroxysmal atrial fibrillation with rapid ventricular rate
Diet: Low Cholesterol
Activity: No restrictions
Driving Restrictions: As prior to admission
Referrals:
Nancy Martell CRNP [Family Provider, Family Practice]
Additional Discharge Medication Instructions: Please see PCP to follow up with thyroid function tests in 4 weeks.
Prescriptions:
New
metoprolol succinate 25 mg tablet extended release 24 hr
12.5 mg PO DAILY Qty: 30 0RF
Continued
nitroglycerin 0.4 MG tablet, sublingual
0.4 mg sublingual [id number] PRN (Reason: chest pain)
atorvastatin 20 MG tablet
20 mg PO QPM
coenzyme Q10 [CoQ-10] 100 mg Capsule
100 mg PO QPM
cholecalciferol (vitamin D3) [Vitamin D3] 25 mcg (1,000 unit) Tablet
25 mcg PO QPM
Breztri Aerosphere 160-9-4.8 mcg/actuation Hfa Aerosol Inhaler
2 inh INHALATION R BID
cyanocobalamin (vitamin B-12) 1,000 mcg Tablet
1,000 mcg PO QPM
trazodone 100 mg Tablet
50 mg PO HS
therapeutic multivitamin Tablet
1 tab PO QPM
omeprazole 20 mg Tablet,Delayed Release (Dr/Ec)
20 mg PO QPM
Eliquis 5 mg Tablet
5 mg PO BID Qty: 60 0RF
prednisone 10 mg tablet
40 mg PO DAILY Qty: 20 0RF
Rx Instructions:
40 mg X2 days, 30 mg X 2 days, 20 mg X2 days, 10 mg X2 days
aspirin 81 mg Tablet
81 mg PO QPM
losartan 50 mg tablet
50 mg PO QPM
amoxicillin-pot clavulanate 875-125 mg tablet
1 tab PO BID
Rx Instructions:
FOR 13 DAYS STARTING 09/03/25
Discharge Orders:
Discharge Patient (As Directed); Ordered 09/07/25
Ordered By: Marisa Noel
Care Plan Goals
Care Plan Goals:
Problem: Readiness for enhanced knowledge related to diagnosis and treatment plan
Goal: Understand your diagnosis and treatment plan needs, including medications if applicable.
Instructions: Know your diagnosis, underlying causes and treatment plan options, including medications if applicable. Consult with your health care team to learn about your diagnosis and treatment plan, including medications if applicable.
Discharge Date and Time
Discharge Date/Time: 09/07/25 18:25
Print Language: BELARUSIAN
[2025-09-07] MEDS: TOPROL XL 12.5 MG PO (11:53)
--- NOTE | 2025-09-07 14:34 | CON.CAR ---
Consultation
Consultation Request
Date/Time Consultation Requested: September 07, 2025
Date/Time Consultation Performed: September 07, 2025
Requesting Provider: Dr. Bam Salgado
Performing Provider: Dr. Fabián Dickey
Reason for Consultation: Sick sinus syndrome
Medical History
-
Chief Complaint: Dizziness and heart racing
History of Present Illness:
.
Electrophysiologic consultation is requested from Dr. Bam Salgado regarding further evaluation and management of sick sinus syndrome.
Patient presented to [facility] September 06, 2025 for further evaluation and management of fatigue, weakness and chest pain. He took 2 sublingual nitroglycerin without relief. Ultimately he presented to the emergency department and was
found to be in atrial fibrillation with a rapid ventricular rate. He was administered diltiazem and with control of his rate his pain completely resolved. He was initially diagnosed with atrial fibrillation in April 2025, paroxysmal. He has been
treated with diltiazem for rate control and also on Eliquis for atrial fibrillation related thromboembolic risk reduction.
Medical history also includes COPD for which it is notable that he has nonadherence to home oxygen therapy.
Electrocardiogram on presentation finds atrial flutter with 2-1 AV conduction and ventricular rate of 135 bpm. Atrial flutter is consistent with typical counterclockwise right atrial flutter.
There is subsequent EKG consistent with atrial fibrillation and rapid ventricular rate of 160 bpm.
Most recent ECG demonstrates sinus bradycardia with junctional escape, ventricular rate of 40 bpm.
Echocardiogram 09/06/2025 is a transthoracic study finding normal biventricular size and function with no wall motion abnormalities, mild to moderate mitral regurgitation. No significant change from May 29, 2025
Recent cath in 04/2025 showed non obstructed vessels
Past medical history:
CXR reveals presence of Inspire device right sided
Paroxysmal atrial fibrillation diagnosed April 2025
Coronary artery disease with coronary artery stent placement 2021
COPD on 4 L of oxygen at home with exertion.
No reflux disease
Hypertension
Dyslipidemia
Abdominal aortic aneurysm, 4.9 cm
Social History
Tobacco: Former Smoker
Drug: None
Personal:
Living: With Family
Family History
Family History: Reviewed & Not Pertinent
Allergies / Home Medications
Allergy/AdvReac Type Severity Reaction Status Date / Time
No Known Allergies Allergy Verified 09/05/25 10:11
�Medication �Instructions �Recorded �Confirmed �Type
nitroglycerin 0.4 mg sublingual 0.4 mg sublingual [id number] PRN 12/12/11 09/05/25 History
tablet chest pain
atorvastatin 20 mg tablet 20 mg PO QPM High Cholesterol 04/30/16 09/05/25 History
cholecalciferol (vitamin D3) 25 25 mcg PO QPM Supplement 08/02/23 09/05/25 History
mcg (1,000 unit) tablet (Vitamin
D3)
coenzyme Q10 100 mg capsule 100 mg PO QPM Supplement 08/02/23 09/05/25 History
(CoQ-10)
budesonide 160 mcg-glycopyr 9 2 inh inhalation R BID 05/27/25 09/05/25 History
mcg-formot 4.8 mcg/actuation HFA Lung/Breathing Issues
inhaler (Breztri Aerosphere)
cyanocobalamin (vitamin B-12) 1,000 mcg PO QPM Supplement 05/27/25 09/05/25 History
1,000 mcg tablet
omeprazole 20 mg tablet,delayed 20 mg PO QPM Gastrointestinal Issue 05/27/25 09/05/25 History
release
therapeutic multivitamin 1 tab PO QPM Supplement 05/27/25 09/05/25 History
trazodone 100 mg tablet 50 mg PO HS Sleep 05/27/25 09/05/25 History
apixaban 5 mg tablet (Eliquis) 5 mg PO BID #60 tabs 05/29/25 09/05/25 Rx
prednisone 10 mg tablet 40 mg (4 x 10 mg) PO DAILY #20 tabs 09/03/25 09/05/25 Rx
amoxicillin 875 mg-potassium 1 tab PO BID 09/05/25 09/05/25 History
clavulanate 125 mg tablet
aspirin 81 mg tablet 81 mg PO QPM 09/05/25 09/05/25 History
losartan 50 mg tablet 50 mg PO QPM 09/05/25 09/05/25 History
Review of Systems
-
History Source: Patient
All other systems: Negative unless noted
Constitutional: Fatigue
EENT: No Symptoms
Respiratory: Trouble Breathing
Cardiac: Chest Pain
Abdomen/GI: No Symptoms
: No Symptoms
Musculoskeletal: No Symptoms
Skin: No Symptoms
Neurological: No Symptoms
Endocrine: No Symptoms
Hematologic/Lymphatic: No Symptoms
Physical Exam
Vital Signs
Temp Pulse Resp BP Pulse Ox
98 F 56 20 141/83 93
09/07/25 10:59 09/07/25 11:53 09/07/25 10:59 09/07/25 11:53 09/07/25 10:59
Lab Results
09/07/25 08:28
09/07/25 08:28
Troponin I Cancelled 09/06/25 15:30
[id number] Pept 3880 pg/ml 09/06/25 03:27
Physical Exam
General: Well Developed, Well Nourished, No Apparent Distress and Comfortable
HEENT: Normocephalic, Anicteric and Moist Mucous Membranes
Respiratory: Clear and Non Labored Respirations
Cardiac: S1/S2, Regular Rhythm and Murmur (1/6 apical systolic murmur, no rubs, normally placed PMI)
Breast: Deferred by me
GI: Soft, Non Tender, Non Distended and Normal Bowel Sounds
Rectal: Deferred by Provider
Musculoskeletal: No Clubbing, No Cyanosis and Edema (There is trace pretibial edema bilaterally)
Skin: Warm and Dry
Neuro: Awake, Alert, Oriented, AO x 3 and No Motor Deficits
Psych: Calm
Impression / Plan
-
.
Assessment and recommendations:
Asked to assess patient regarding management of sick sinus syndrome.
He has had atrial fibrillation with rapid ventricular rates and there have been conversion pauses of up to 4.3 seconds noted followed by brief junctional rhythm before religion of sinus rhythm.
More recently he has been sinus bradycardia at approximately 50 to 55 bpm at rest.
He reports some dizzy spells on occasion, no near-syncope or syncope.
At present he is asymptomatic.
Currently no indication for permanent pacing although if he is having dizzy spells as an outpatient which we feel are related to conversion pauses then permanent pacing can certainly be considered.
Another option would be rhythm control which could include antiarrhythmic drug therapy or though I would be worried about worsening bradycardia. He seems to be a good candidate for ablation targeting both typical right atrial flutter as well as
atrial fibrillation.
I discussed this in detail with the patient and his who was on speaker phone.
I answered all of their questions.
They tell me that he did not want to make any decisions until they can have outpatient evaluation and further discussion with her primary admitting representative, Dr. Garcia.
From an electrophysiology standpoint there is no contraindication to discharge home. I would start him on low-dose Toprol-XL, 12.5 mg daily which I think he should tolerate well.
I also recommended improved compliance with his COPD /NORM management (he does have Inspire device implanted)
Maintain Eliquis 5 mg twice daily for atrial fibrillation with thromboembolic risk reduction
All of their questions answered.
Will sign off, please call back if needed.
Data Reviewed
-
EKG: Tracing Personally Visualized and interpreted
Radiology: Image Personally Visualized and interpreted
Labs: Labs Reviewed by me
Old Records: Reviewed
[2025-09-07 15:02] VITALS: BP 117/83
[2025-09-07] MEDS: FLUZONE HIGH-DOSE 2025-26 0.5 ML IM (15:43)
[2025-09-07] MEDS: LIPITOR 20 MG PO (18:09)
[2025-09-07] MEDS: COZAAR 50 MG PO (18:09)
[2025-09-07] MEDS: VITAMIN B-12 1000 MCG PO (18:10)
[2025-09-07] MEDS: PROTONIX 40 MG PO (18:10)
[2025-09-07] MEDS: THERAGRAN 1 TABLET PO (18:10)
[2025-09-07] MEDS: VITAMIN D3 (cholecalciferol) 25 MCG PO (18:10)
--- NOTE | 2025-09-07 18:24 | PTCARENOTE ---
Remains in SR/SB, tolerated low dose of toprol and ok for discharge. Reviewed discharge instructions and new prescription and he states his understanding. Patient discharged home with his .
[2025-09-07 18:51] LABS: Hepatitis C Antibody Negative (Negative)
== END 2025-09-07 18:25 | disposition home or self-care (01) | DRG 308 ==
LOC: IVU 14:29
PROVIDERS: Nurse Practitioner Gerontology; ADMITTING PHYSICIAN Hospitalist; EMERGENCY PHYSICIAN Emergency Medicine; FAMILY PHYSICIAN Nurse Practitioner Family; OTHER PHYSICIAN Internal Medicine Cardiovascular Disease
PROC: 3E02340 Introduction of Influenza Vaccine into Muscle, Percutaneous Approach (ICD-10-PCS; 2025-09-07)
DX: I48.0 Paroxysmal atrial fibrillation (principal); I50.31 Acute diastolic (congestive) heart failure; J36 Peritonsillar abscess; J96.10 Chronic respiratory failure, unspecified whether with hypoxia or hypercapnia; I5A Non-ischemic myocardial injury (non-traumatic); K21.9 Gastro-esophageal reflux disease without esophagitis; I48.3 Typical atrial flutter; E78.00 Pure hypercholesterolemia, unspecified; G47.33 Obstructive sleep apnea (adult) (pediatric); I11.0 Hypertensive heart disease with heart failure; J44.9 Chronic obstructive pulmonary disease, unspecified; I71.40 Abdominal aortic aneurysm, without rupture, unspecified; I25.10 Atherosclerotic heart disease of native coronary artery without angina pectoris; I48.92 Unspecified atrial flutter; D72.829 Elevated white blood cell count, unspecified; I70.0 Atherosclerosis of aorta; I49.5 Sick sinus syndrome; Z23 Encounter for immunization; Z79.899 Other long term (current) drug therapy; Z87.891 Personal history of nicotine dependence; Z99.81 Dependence on supplemental oxygen; Z79.01 Long term (current) use of anticoagulants; Z79.82 Long term (current) use of aspirin; Z95.5 Presence of coronary angioplasty implant and graft
CPT/HCPCS: 71045; 80048; 80053; 83735; 83880; 84443; 84484; 85025; 85027; 85610; 86803; 90662; 93005; 93308; 93321; 93325; 94640; 96365; 96366; 99285; G0008

== ENCOUNTER → 2025-11-09 12:46 | Outpatient (REF) | payer MEDICARE, OTHER, SELFPAY ==
[2025-11-09 13:23] LABS: Hematocrit 44.7 % (39.0-52.0); Hemoglobin 14.0 g/dL (13.0-18.0); Mean Corp Hgb Conc. 31.3 g/dL (33.0-37.0); Mean Corpuscular Volume 77.1 fL (80.0-94.0); Nucleated Red Blood Cells % 0 % (-); Platelet Count 279 10^3/uL (130-400); Red Cell Dist. Width 18.7 % (11.5-14.5)
[2025-11-09 13:31] LABS: INR 1.18; PT 14.8 Sec (11.4-14.6)
[2025-11-09 13:35] LABS: ALT (SGPT) 28 U/L (0-50); AST (SGOT) 34 U/L (17-59); Albumin 4.5 g/dl (3.5-5.0); Alkaline Phosphatase 71 U/L (38-126); Blood Urea Nitrogen 22 mg/dl (9-20); Calcium 9.3 mg/dl (8.4-10.2); Carbon Dioxide 24 mmol/L (22-30); Chloride 107 mmol/L (98-107); Glucose 112 mg/dl (70-99); Magnesium 1.6 mg/dl (1.6-2.3); Potassium 4.3 mmol/L (3.5-5.1); Sodium 139 mmol/L (135-145); Total Protein 7.5 g/dl (6.3-8.2); eGFR 59.84
== END ==
LOC: SDSPAT 12:46
PROVIDERS: ATTENDING PHYSICIAN Internal Medicine Cardiovascular Disease; FAMILY PHYSICIAN Nurse Practitioner Family; OTHER PHYSICIAN Internal Medicine Clinical Cardiac Electrophysiology
DX: I48.0 Paroxysmal atrial fibrillation (principal)
CPT/HCPCS: 36415; 75572; 80053; 83735; 85025; 85610; 86850; 86900; 86901; 93005; Q9967

== ENCOUNTER 2025-11-21 08:01 | Day surgery (SDC) | payer MEDICARE, OTHER, SELFPAY ==
[2025-11-09 12:58] VITALS: BMI 33.2
[2025-11-21] VITALS (20 sets, daily range): BP systolic 64–144; BP diastolic 49–104
--- NOTE | 2025-11-21 08:05 | ITS.CL.ABL ---
Fur Remodeler - Ablation
Ablation
Procedure Report:
ELECTROPHYSIOLOGIC STUDY AND POSSIBLE ABLATION
DATE: November 21, 2025
Primary Care Provider: NEAL Coburn
Primary Help Aid: Dr. Letha Garcia
INDICATION:
Symptomatic Atrial Fibrillation.
Paroxysmal
HISTORY: See H and P.
Symptomatic AF, poorly controlled with attempted medical therapy
HAS-BLED: 2
Age
Antiplatelet Therapy
CHADSVASc: 3
HTN
Age
Vascular Dz: CAD/FEROZ
PRESENTING RHYTHM: SR
HISTORY: See H and P.
Symptomatic AF, poorly controlled with attempted medical therapy.
My review of electrocardiograms from August 2025 finds atrial flutter with 2-1 AV conduction and atrial flutter wave morphology consistent with typical counterclockwise right atrial flutter.� There is subsequent EKG demonstrating atrial
fibrillation with a rapid ventricular rate of 160 bpm.
Medical history additionally includes coronary artery disease.� He underwent drug-eluting stent to circumflex artery in 2011.� More recent coronary angiography April 2025 demonstrated no obstructive coronary artery disease.
Additional medical history includes hypercholesterolemia and COPD/emphysema for which he [facility] at [facility].
Obstructive sleep apnea. He has Inspire device.
Echocardiogram September 06, 2025 finds normal biventricular size and function with no wall motion abnormality. Mild to moderate mitral regurgitation, no significant change from May 29, 2025.
ANTICOAGULATION: Eliquis 5 mg twice daily
'TIME-OUT': called and confirmed.
SEDATION/ANESTHESIA: provided via the anesthesia department using general anesthesia.
PROCEDURE:
Ultrasound Guidance with real-time visualization of needle insertion and vessel patency performed by me for femoral venous Vascular Access.
Under real-time US guidance, the needle was advanced with negative pressure into the vein. The needle was seen entering the vessel lumen with a good return of dark red flow, the syringe was removed, non-pulsatile, dark red blood low was noted and
the wire was passed without difficulty, then the needle was removed. US confirmed the wire was in the vein, not going into an artery,
Images were taken and saved for the patient's permanent record. Imaging findings typical femoral venous anatomy. Direct visualization of needle puncture into the femoral vein was observed and recorded.
A decapolar CS catheter was placed within the CS for mapping and pacing.
The intracardiac ultrasound catheter was positioned in the RA for continuous intracardiac ultrasound imaging.
Heparin bolus and infusion to target ACT at 300 -350 seconds was administered. Transseptal puncture was performed. This entailed advancing a sheath with dilator into the superior vena cava and withdrawing both (monitoring intracardiac ultrasound,
fluoroscopy and tip pressure) with the tip oriented toward the atrial septum. The fossa ovalis was engaged (indicated by sudden displacement of the sheath tip as well as tenting of the fossa seen on intracardiac ultrasound).
Transseptal puncture was performed. Left atrial catheter position was confirmed by echocardiographic imaging, pressure monitoring and fluoroscopy. The sheath was advanced over the dilator and positioned in the left atrium.
The Sphere 9 multipolar mapping/ablation Sphere-9 catheter was positioned through the transseptal sheath for high density mapping.
Geometry and voltage mapping was performed using the [employer] mapping system for three-dimensional electroanatomical mapping.
Catheter positioning was guided and confirmed using both I.C.E. and fluoroscopy.
High density electroanatomical three-dimensional mapping demonstrated four PVs: LSPV, LIPV, RSPV, RIPV.
Ablation strategy included PVI as well as mapping for extra PV contributors to atrial fibrillation which would also be targeted if present.
After accomplishing pulmonary venous isolation, mapping identified additional areas likely to be extra PV contributors to atrial fibrillation. These areas demonstrated patchy low voltage as well as complex fractionated electrograms. These areas can
be sites for the formation of rotors which can drive and maintain atrial fibrillation. These areas are known to be significant contributors to initiation and perpetuation of atrial fibrillation.
Additional energy applications/additional ablation sets targeted extra PV contributors to atrial fibrillation.
Targets for additional PFA ablation included:
LA posterior wall targeted with pulsed electric field energy isolating the posterior wall of the left atrium
These areas were ablated using pulsed electric field energy eliminating the extra PV contributors to atrial fibrillation.
Post ablation mapping finds entrance and exit block at each of the pulmonary veins, the LA posterior wall rendering the sites no longer able to contribute to atrial fibrillation.
Additionally, he is known to have atrial flutter which on EKG has appearance of typical counterclockwise right atrial flutter.
Next, mapping and ablation of the cavotricuspid isthmus to eliminate atrial flutter was undertaken.
Ablation was performed at approximately 6:00 on the CTI in the NICARAGUAN 30 degree projection.
Closer to the tricuspid annulus radiofrequency energy was delivered via the sphere 9 catheter, mid isthmus and closer to the inferior vena cava post field energy was delivered via the sphere 9 catheter.
This created bidirectional block at the CTI evidenced by differential pacing post ablation.
Programmed electrostimulation including burst atrial pacing as well the delivery of decremental extrastimuli down to atrial effective refractory period and no sustained arrhythmias could be induced.
I.C.E. :
Pre-Ablation Post-Ablation
LVEF: 55 % 55 %
WMA: none none
Pericardial effusion: trace trace
COMPLICATIONS:
None
SUMMARY:
- Mapping and ablation to isolate the PVs resulting in electrical isolation of the pulmonary veins
- Additional AF ablation sets X 1 after PVI (LA posterior wall) resulting in elimination of the targeted extra PV contributors to atrial fibrillation
- Mapping and ablation of second tachycardia (SVT: typical RA flutter) rendering it non-inducible with programmed electrical stimulation
- 3-D Electroanatomical Mapping
- Intracardiac Ultrasound
- Ultrasound guidance for vascular access
Post ablation, I discussed today's findings and results with the patient's .
RECOMMENDATIONS:
- Observe in monitored bed.
- Maintain oral anticoagulation.
- Continue cardiovascular care with Dr. Letha Garcia
Copy to:
Primary Care Provider: NEAL Coburn
Primary Help Aid: Dr. Letha Garcia
[2025-11-21 10:59] LABS: ACT-LR - POC 361 Seconds (116-155)
[2025-11-21 11:19] LABS: ACT-LR - POC 363 Seconds (116-155)
[2025-11-21] MEDS: DUONEB 3 ML INH (12:55)
--- NOTE | 2025-11-21 13:28 | PTCARENOTE ---
Pt's BP dipper to MAP50's -low 60's. NSS bolus of 500 mls NSS given per Ronel M48 M60 [employer]. HOB lowered and legs raised. Pt is asymptomatic.
[2025-11-21] MEDS: NSS 500 IV (13:33)
--- NOTE | 2025-11-21 16:18 | W.PN.UPDATE ---
Update Note
Progress Note Update
Pt seen post PFA. Right groin site without ht/bleeding, non tender. Post EKG NSR 75. Resume eliquis tonight. Hypotension noted intraop and post as well, with some improvement after fluid challenge and more wakeful from anesthesia. Oxygen saturations
in mid 80s on 4LNC- this is normal for patient and he uses supplemental oxygen at home. He will wear it for the next 24 hours including overnight with his CPAP, as well as continue inhalers. Followup with Dr. Garcia as scheduled. Home later today
if groin site/tele remain stable.
== END 2025-11-21 16:51 | disposition home or self-care (01) ==
LOC: CATH 08:01
PROVIDERS: ATTENDING PHYSICIAN Internal Medicine Cardiovascular Disease; FAMILY PHYSICIAN Nurse Practitioner Family; OTHER PHYSICIAN Internal Medicine Cardiovascular Disease
DX: I48.0 Paroxysmal atrial fibrillation (principal); I48.92 Unspecified atrial flutter; E66.9 Obesity, unspecified; E78.00 Pure hypercholesterolemia, unspecified; G47.00 Insomnia, unspecified; G47.33 Obstructive sleep apnea (adult) (pediatric); I10 Essential (primary) hypertension; I25.10 Atherosclerotic heart disease of native coronary artery without angina pectoris; I34.0 Nonrheumatic mitral (valve) insufficiency; I47.10 Supraventricular tachycardia, unspecified; J43.9 Emphysema, unspecified; Z79.02 Long term (current) use of antithrombotics/antiplatelets; Z79.01 Long term (current) use of anticoagulants; J84.10 Pulmonary fibrosis, unspecified; M19.90 Unspecified osteoarthritis, unspecified site; Z68.33 Body mass index [BMI] 33.0-33.9, adult; Z87.891 Personal history of nicotine dependence; Z79.899 Other long term (current) drug therapy; Z86.0100 Personal history of colon polyps, unspecified; Z86.79 Personal history of other diseases of the circulatory system; Z96.641 Presence of right artificial hip joint; Z95.5 Presence of coronary angioplasty implant and graft; Z79.82 Long term (current) use of aspirin
CPT/HCPCS: C1894; C1769; C1766; C1730; C1892; C1733; 85347; 86900; 86901; 93005; 93655; 93656; 93657; C1760

== ENCOUNTER 2025-11-23 23:41 | Inpatient (IN) | payer MEDICARE, OTHER, SELFPAY ==
[2025-11-23] VITALS (12 sets, daily range): BP systolic 135–161; BP diastolic 62–87; PULSE 2–61; BMI 32.5
--- NOTE | 2025-11-23 19:26 | ED.GENMED ---
Addendum entered and electronically signed by Rich Buitrago PA-C 11/23/25 23:23:
Patient's troponin is significantly elevated. I do suspect this is related to his recent cardiac ablation as opposed to current cardiac event
Original Note:
History of Present Illness
<Rich Buitrago PA-C - Last Filed: 11/23/25 22:33>
General
Chief Complaint: Breathing Problem
Source: patient, records and spouse
Time Seen by Provider: 11/23/25 19:20
History of Present Illness
History of Present Illness:
70-year-old male with past medical history of COPD, on 2 L nasal cannula, status post cardiac ablation done this past Thursday, known AAA, atrial fibrillation, CAD, hypertension hyperlipidemia presenting to the ER from home with EMS for evaluation of
shortness of breath which patient states has been ongoing since the day of his cardiac ablation. Today the shortness of breath got worse. EMS treated the patient with a nonrebreather, DuoNeb and remains on a nonrebreather at time of my exam.
Patient states that he does feel slightly improved following the nebulizer but still with shortness of breath. No chest pain, no fevers or infectious symptoms, no lower extremity edema, cough or any other symptoms including pleurisy or hemoptysis.
Patient states that he was off of his anticoagulant medicine for at least 24 hours prior to the procedure.
Past History
<Rich Buitrago PA-C - Last Filed: 11/23/25 22:33>
Past History
ED Past Medical History: CAD, COPD, HTN, Hypercholesterolemia and Other (Abdominal aortic aneurysm being monitored with ultrasounds. 4.6 cm February 2025); Negative IDDM or NIDDM
ED Past Surgical History: Cardiac (PTCA with stent 2011) and Orthopedic
Social History
Tobacco: Former smoker (Quit [id number])
Alcohol: Occasional
Drug: None
Personal:
Living: with family
Employment: Retired
Family History
Family History: Other (Noncontributory)
Review of Systems
<Rich Buitrago PA-C - Last Filed: 11/23/25 22:33>
Review of Systems
All Other Systems: ROS reviewed and negative except as documented in HPI and ROS
Phy Exam
<Rich Buitrago PA-C - Last Filed: 11/23/25 22:33>
Physical Exam
Physical Exam:
GENERAL: Alert , labored respirations with accessory muscle use but patient is speaking in full sentences, well-perfused, no cyanosis
HEAD: Normocephalic atraumatic
EYE: Clear conjunctiva
NECK: Supple
ENT: o/p clr, mmm.
CARDIAC: Regular rate and rhythm .
LUNGS: Very diminished lung sounds at the apices bilaterally down towards the mid lungs, Rales at the bases, accessory muscle use noted
ABDOMEN: Soft, without focal tenderness, no r/g, no cvat
NEUROLOGICAL: Alert and oriented
SKIN: Warm and dry, skin intact.
MUSCULOSKELETAL: No edema, well perfused.
PSYCH: Normal and appropriate interaction.
Scores
<Rich Buitrago PA-C - Last Filed: 11/23/25 22:33>
Heart Failure Risk
Heart Failure Risk Score: Yes
History of Stroke or TIA: No
History of intubation for respiratory distress: No
Heart rate on ED arrival >/= 110: No
SaO2 <90% on arrival on room air: Yes
HR >/=110 during 3min walk test (or too ill to perform test): Yes
ECG has acute ischemic changes: No
Urea >/=12mmol/L (BUN 33.6mg/dL): No
Serum CO2>/=35mmol/L: No
Troponin I or T elevated to TX Level (0.4mg/dL): Yes
NT-proBNP >/=5,000ng/L (5,000pg/ml): No
HF Risk Score: 5
Admission Status: VERY HIGH RISK 39.8% Consider admission to hospital
Heart Score for Chest Pain Patients
STEMI patient?: Not applicable
Withdrawal Assessment of Alcohol
Withdrawal Assessment Completed?: Not applicable
Sepsis
<Rich Buitrago PA-C - Last Filed: 11/23/25 22:33>
Sepsis Screening
Sepsis Assessment: Sepsis Ruled Out
Sepsis Screen
Sepsis Screen: Sepsis Ruled Out
Date: 11/23/25
Time: 22:33
Course
<Rich Buitrago PA-C - Last Filed: 11/23/25 22:33>
Orders/Labs/Results
Orders:
Orders
11/23/25 19:22
Electrocardiogram (*1) Urgent
Reason for Study: Other
Other Reason for Exam: Respiratory Distress
Cardiac Monitoring- Treatment ONCE
EKG- Treatment ONCE
IV Insert/Care/Rem.- Treatment PRN
O2 Therapy [RESP] Urgent
Titrate/Wean O2 to maintain O2 sat greater than (%): 93
Special Instructions: TO MAINTAIN CONTINUOUS O2 SATS >/= 93%
Pulse Ox/cont/shift [RESP] Urgent
Quantity: 1
Special Instructions: continuous pulse ox
11/23/25 19:24
CT Chest PE Study Urgent
Comment:
Reason For Exam: hypoxia, SOB
Bipap [RESP] Urgent
Patient to use own unit?: No
Inspiratory Pressure (cm H2O): 14
Expiratory Pressure (cm H2O): 6
11/23/25 19:26
Albuterol Sulfate [Ventolin Nebules] 10 mg INH R NOW STA
11/23/25 19:28
Complete Blood Count/With Diff Urgent
Comprehensive Metabolic Panel Urgent
NT-proBNP Urgent
Troponin I Urgent
Venous Blood Gas Urgent
%Oxygen/Room Air: 78
11/23/25 19:37
MethylPREDNISolone PF [Solu-Medrol Pf] 40 mg IV NOW STA
11/23/25 21:39
Furosemide [Lasix] 40 mg IV NOW STA
Heparin 7,800 units IV NOW STA
Nursing to Place Non Medication Order As Directed
Physician Order: PTT 6 hours after initial start of Heparin infusion
11/23/25 21:45
Heparin 08473 Units/250 ml 25,000 units in 250 ml IV PER PROTOCOL
Weight to be used for heparin protocol in kilograms (kg):: 97
Protocol:: DVT/PE
PTT Goal Range to be used:: PTT 73 to 111 seconds
Order type:: Initial
INITIAL Infusion Dose (UNITS/KG/hr) & then follow protocol:: 18 units/kg/hr
Infusion Dose in UNITS/hr & then follow protocol (UNITS/hr):: 1,700
INFUSION RATE in mL/hr & then follow protocol (mL/hr):: 17
For DVT/PE algorithm, re-bolus for low PTT?: Yes
PTT less than or equal to 64 seconds:: Re-bolus 80 units/kg (max 10,000units). Increase by 400 units/hr
(+ 4mL/hr)
PTT 64.1 to 72.9 seconds:: Re-bolus 40 units/kg (max 5,000 units). Increase by 200 units/hr
(+ 2mL/hr)
PTT 73 to 111 seconds:: Target Range. No change in rate.
PTT 111.1 to 130.9 seconds:: Decrease rate by 200 units/hr (- 2 mL/hr)
PTT 131 to 199.9 seconds:: HOLD for 1 hr. Then decrease by 300 units/hr (- 3mL/hr)
PTT greater than or equal to 200 seconds:: HOLD for 2 hrs & Notify Provider. Then decrease by 400 units/hr
(- 4mL/hr)
Lab follow-up:: Each change, PTT q6h until 2 consecutive are therapeutic. Then
PTT daily.
11/23/25 21:47
PTT Urgent
Comment: Obtain baseline before beginning heparin infusion if not already collected
11/23/25 22:04
Heparin 3,900 units IV PRN PRN
Heparin 7,800 units IV PRN PRN
Abnormal Lab Results
11/23/25
19:28
WBC 12.6 H 10^3/uL
(4.8-10.8)
Hgb 12.3 L g/dL
(13.0-18.0)
MCV 76.5 L fL
(80.0-94.0)
MCH 23.5 L pg
(27.0-31.0)
MCHC 30.8 L g/dL
(33.0-37.0)
RDW 19.4 H %
(11.5-14.5)
Abs Immat Gran (auto) 0.1 H 10^3/uL
(0-0.05)
Absolute Neuts (auto) 9.4 H 10^3/uL
(1.4-6.5)
Absolute Monos (auto) 1.2 H 10^3/uL
(0.1-0.6)
Immature Gran % 1.1 H %
(0-0.5)
Lymphocytes % 12.7 L %
(20.5-51.1)
Monocytes % 9.6 H %
(1.7-9.3)
VBG pH 7.28 L
(7.32-7.43)
Glucose 111 H mg/dl
(70-99)
AST 72 H U/L
(17-59)
Troponin I 6.620 H* ng/ml
11/23/25 19:28
11/23/25 19:28
Vital Signs
Initial and Last Documented VS:
Initial Vital Signs
Pulse Resp BP Pulse Ox
78 32 144/87 78
11/23/25 19:17 11/23/25 19:17 11/23/25 19:17 11/23/25 19:17
Last Documented Vital Signs
Pulse Resp BP Pulse Ox
66 17 141/65 96
11/23/25 22:15 11/23/25 22:15 11/23/25 22:00 11/23/25 22:15
<Ashanti Marc MD - Last Filed: 11/23/25 19:33>
Orders/Labs/Results
Orders:
Orders
11/23/25 19:22
Electrocardiogram (*1) Urgent
Reason for Study: Other
Other Reason for Exam: Respiratory Distress
Cardiac Monitoring- Treatment ONCE
EKG- Treatment ONCE
IV Insert/Care/Rem.- Treatment PRN
O2 Therapy [RESP] Urgent
Titrate/Wean O2 to maintain O2 sat greater than (%): 93
Special Instructions: TO MAINTAIN CONTINUOUS O2 SATS >/= 93%
Pulse Ox/cont/shift [RESP] Urgent
Quantity: 1
Special Instructions: continuous pulse ox
11/23/25 19:24
CT Chest PE Study Urgent
Comment:
Reason For Exam: hypoxia, SOB
Bipap [RESP] Urgent
Patient to use own unit?: No
Inspiratory Pressure (cm H2O): 14
Expiratory Pressure (cm H2O): 6
11/23/25 19:26
Albuterol Sulfate [Ventolin Nebules] 10 mg INH R NOW STA
11/23/25 19:28
Complete Blood Count/With Diff Urgent
Comprehensive Metabolic Panel Urgent
NT-proBNP Urgent
Troponin I Urgent
Venous Blood Gas Urgent
%Oxygen/Room Air: 78
11/23/25 19:37
MethylPREDNISolone PF [Solu-Medrol Pf] 40 mg IV NOW STA
11/23/25 21:39
Furosemide [Lasix] 40 mg IV NOW STA
Heparin 7,800 units IV NOW STA
Nursing to Place Non Medication Order As Directed
Physician Order: PTT 6 hours after initial start of Heparin infusion
11/23/25 21:45
Heparin [id number] Units/250 ml 25,000 units in 250 ml IV PER PROTOCOL
Weight to be used for heparin protocol in kilograms (kg):: 97
Protocol:: DVT/PE
PTT Goal Range to be used:: PTT 73 to 111 seconds
Order type:: Initial
INITIAL Infusion Dose (UNITS/KG/hr) & then follow protocol:: 18 units/kg/hr
Infusion Dose in UNITS/hr & then follow protocol (UNITS/hr):: 1,700
INFUSION RATE in mL/hr & then follow protocol (mL/hr):: 17
For DVT/PE algorithm, re-bolus for low PTT?: Yes
PTT less than or equal to 64 seconds:: Re-bolus 80 units/kg (max 10,000units). Increase by 400 units/hr
(+ 4mL/hr)
PTT 64.1 to 72.9 seconds:: Re-bolus 40 units/kg (max 5,000 units). Increase by 200 units/hr
(+ 2mL/hr)
PTT 73 to 111 seconds:: Target Range. No change in rate.
PTT 111.1 to 130.9 seconds:: Decrease rate by 200 units/hr (- 2 mL/hr)
PTT 131 to 199.9 seconds:: HOLD for 1 hr. Then decrease by 300 units/hr (- 3mL/hr)
PTT greater than or equal to 200 seconds:: HOLD for 2 hrs & Notify Provider. Then decrease by 400 units/hr
(- 4mL/hr)
Lab follow-up:: Each change, PTT q6h until 2 consecutive are therapeutic. Then
PTT daily.
11/23/25 21:47
PTT Urgent
Comment: Obtain baseline before beginning heparin infusion if not already collected
11/23/25 22:04
Heparin 3,900 units IV PRN PRN
Heparin 7,800 units IV PRN PRN
Abnormal Lab Results
11/23/25
19:28
WBC 12.6 H 10^3/uL
(4.8-10.8)
Hgb 12.3 L g/dL
(13.0-18.0)
MCV 76.5 L fL
(80.0-94.0)
MCH 23.5 L pg
(27.0-31.0)
MCHC 30.8 L g/dL
(33.0-37.0)
RDW 19.4 H %
(11.5-14.5)
Abs Immat Gran (auto) 0.1 H 10^3/uL
(0-0.05)
Absolute Neuts (auto) 9.4 H 10^3/uL
(1.4-6.5)
Absolute Monos (auto) 1.2 H 10^3/uL
(0.1-0.6)
Immature Gran % 1.1 H %
(0-0.5)
Lymphocytes % 12.7 L %
(20.5-51.1)
Monocytes % 9.6 H %
(1.7-9.3)
VBG pH 7.28 L
(7.32-7.43)
Glucose 111 H mg/dl
(70-99)
AST 72 H U/L
(17-59)
Troponin I 6.620 H* ng/ml
11/23/25 19:28
11/23/25 19:28
Vital Signs
Initial and Last Documented VS:
Initial Vital Signs
Pulse Resp BP Pulse Ox
78 32 144/87 78
11/23/25 19:17 11/23/25 19:17 11/23/25 19:17 11/23/25 19:17
Last Documented Vital Signs
Pulse Resp BP Pulse Ox
66 17 141/65 96
11/23/25 22:15 11/23/25 22:15 11/23/25 22:00 11/23/25 22:15
<Rich Buitrago PA-C - Last Filed: 11/23/25 22:33>
MDM/Problems Addressed
Differential Diagnosis Includes:
COPD
CHF
Less concern for ACS
PE
PTX
Valvular dysfunction
COPD exacerbation
Pericarditis/Myocarditis
MDM/Problems Addressed:
70-year-old male presenting to the ER for evaluation of shortness of breath that has been reported since the day of his cardiac ablation on Thursday. Patient on a nonrebreather, oxygen saturation still within the low 90s without increased work of
breathing. Will initiate trial of BiPAP, hour-long neb, Solu-Medrol. Will consider Lasix although overtly patient does not appear to be volume overloaded. PE study ordered as patient was off his anticoagulation. Will need admission.
Chronic conditions affecting care: Arrhythmia and COPD
Acute Exacerbation and/or Progression of Chronic Illness: Arrhythmia and COPD
<Rich Buitrago PA-C - Last Filed: 11/23/25 22:33>
*Radiology
Radiology exam reviewed: radiology read reviewed
*Pulse Oximetry
SaO2: 78
Oxygen Mode of Delivery: Room air
Patient hypoxic: yes
*EKG
Heart Rate: 66
Rate: normal
Rhythm: sinus
Interval: short OK
*Photoengraving Helper Interpretation
Rate: normal
Heart Rate: 78
Rhythm: sinus
*Critical Care Note
Total Time (30-74mins, 75-104mins- exclusive of procedures): 40
comment:
Critical care statement: A total of 40 minutes of critical care time was provided for this patient. This includes management of unstable vital signs, evaluation of the patient at bedside, reviewing the patient's pertinent medical records, discussion
with consultants, review of old EKGs and review of pertinent medical records. This time with separate from time utilized to perform the aforementioned documented procedures
Data Reviewed
Review of Other/Old Records Reveals: Labs, Records and Discharge Summary
Source: patient, records and spouse
<Rich Buitrago PA-C - Last Filed: 11/23/25 22:33>
Patient Management
Discussion with other providers: Hospitalist
Escalation/DeEscalation of care consider admission/obs:
Patient CT scan shows a right apical pulmonary emboli, given the location of the emboli I am less suspicious that this is the main cause for patient's shortness of breath. I do suspect this to be more of a COPD exacerbation/possible CHF
exacerbation given the pulmonary edema and effusions noted on CTA. Heparin ordered. Lasix 40 mg IV ordered. Will continue patient on BiPAP for the time being. Hospitalist team was notified and accepts for continued evaluation and treatment.
ED Attending Note
<Rich Buitrago PA-C - Last Filed: 11/23/25 22:33>
-
Portions of this chart may have been created with voice recognition software.� Occasional wrong word or��sound alike� substitutions may have occurred due to the inherent limitations of voice recognition software.
<Ashanti Marc MD - Last Filed: 11/23/25 19:33>
ED Attending Note
Patient seen and examined by attending physician: Yes
I performed the substantive portion of visit, reviewed & personally made and approve the management plan that is documented in note by myself or CHERY.: Yes
ED Attending Note:
I have seen and evaluated the patient with a [id number] encounter. I have spoken to the [CHERY] and involved in the medical history, the physical exam, medical decision making.
Evaluation and management service: agree unless noted differently below.
Results interpretation: agree unless noted differently below.
Patient is a 62-year-old male with history of COPD, A-fib on Eliquis presented to the emergency room with shortness of breath. Patient had ablation 2 days ago. Today developed some difficulty breathing. Did hold his Eliquis for 24 hours for the
procedure. Denies any chest pain. He was found to be 80% on room air so the placed on nonrebreather and given a DuoNeb. Patient does feel slightly better. No fevers chills. No leg swelling. On my evaluation patient is in moderate respiratory
distress. He is able to speak in full sentences though does have labored breathing. He does have diminished breath sounds superiorly though at the bases he does have fine rales. Heart is regular rate and rhythm. Concern for COPD exacerbation
versus pulmonary edema versus PE. Considered tamponade though patient not hypotensive and with clear heart sounds. Will place patient on BiPAP given work of breathing. Will give additional nebulizer treatment. Will obtain stat CT PE protocol.
Will check blood work. Anticipate admission.
Discharge Plan
Departure
Patient Disposition: Admit
Date of Disposition: 11/23/25
Time of Disposition: 21:43
Presentation/result/management discussed w/ accepting MD/DO: Hospitalist
Discharge Problem:
Pulmonary embolism, Acute exacerbation of chronic obstructive pulmonary disease, Pulmonary edema
Prescriptions:
No Action
nitroglycerin 0.4 MG tablet, sublingual
0.4 mg sublingual [id number] PRN (Reason: chest pain)
atorvastatin 20 MG tablet
20 mg PO QPM
cholecalciferol (vitamin D3) [Vitamin D3] 25 mcg (1,000 unit) Tablet
25 mcg PO QPM
Breztri Aerosphere 160-9-4.8 mcg/actuation Hfa Aerosol Inhaler
2 inh INHALATION R BID
cyanocobalamin (vitamin B-12) 1,000 mcg Tablet
1,000 mcg PO QPM
therapeutic multivitamin Tablet
1 tab PO QPM
omeprazole 20 mg Tablet,Delayed Release (Dr/Ec)
20 mg PO QPM
Eliquis 5 mg Tablet
5 mg PO BID Qty: 60 0RF
aspirin 81 mg Tablet
81 mg PO QPM
losartan 50 mg tablet
50 mg PO QPM
metoprolol succinate 25 mg tablet extended release 24 hr
12.5 mg PO DAILY Qty: 30 0RF
trazodone 100 mg tablet
50 mg PO HS
coenzyme Q10 100 mg Capsule
100 mg PO QPM
acetaminophen 325 mg Tablet
650 mg PO Q6H PRN (Reason: low back pain)
Referrals:
Nancy Martell CRNP [Family Provider, Family Practice]
Interventions
Interventions:
*General Assessment Last Done: 11/23/25 19:24
*Neglect/Abuse Screening Last Done: 11/23/25 19:24
*ED COVID-19 Vaccine History Last Done: 11/23/25 19:24
*ED Influenza Vaccine History Last Done: 11/23/25 19:24
[facility] Fall Risk Assessment Tool Last Done: 11/23/25 19:25
*Risk Screen - Suicide (C-SSRS) Last Done: 11/23/25 19:24
ED- Cardiac Assessment Last Done: 11/23/25 19:29
ED- Pulmonary Assessment Last Done: 11/23/25 19:29
Discharge Date and Time
Print Language: MACEDONIAN
[2025-11-23 19:37] LABS: Venous Blood Gas B.E. -4.8 mmol/L (-4 to +4); Venous Blood Gas O2 Sat % 59.0 %
[2025-11-23 19:38] LABS: Hematocrit 40.0 % (39.0-52.0); Hemoglobin 12.3 g/dL (13.0-18.0); Mean Corp Hgb Conc. 30.8 g/dL (33.0-37.0); Mean Corpuscular Volume 76.5 fL (80.0-94.0); Nucleated Red Blood Cells % 0 % (-); Platelet Count 291 10^3/uL (130-400); Red Cell Dist. Width 19.4 % (11.5-14.5)
[2025-11-23] MEDS: VENTOLIN NEBULES 10 MG INH (19:39)
[2025-11-23] MEDS: SOLU-MEDROL PF 40 MG IV (19:41)
[2025-11-23 19:58] LABS: ALT (SGPT) 39 U/L (0-50); AST (SGOT) 72 U/L (17-59); Albumin 4.2 g/dl (3.5-5.0); Alkaline Phosphatase 80 U/L (38-126); Blood Urea Nitrogen 20 mg/dl (9-20); Calcium 8.4 mg/dl (8.4-10.2); Carbon Dioxide 23 mmol/L (22-30); Chloride 106 mmol/L (98-107); Estimated Creatinine Clearance 67 ml/min; Glucose 111 mg/dl (70-99); Potassium 4.3 mmol/L (3.5-5.1); Sodium 138 mmol/L (135-145); Total Protein 6.8 g/dl (6.3-8.2); eGFR > 60.00
[2025-11-23 20:18] LABS: Troponin I 6.620 ng/ml
[2025-11-23] MEDS: LASIX 40 MG IV (21:51)
[2025-11-23 22:12] LABS: APTT 31.8 Sec (23.4-35.0)
[2025-11-23] MEDS: HEPARIN 25000 UNITS/250 ML IV (22:14)
[2025-11-23] MEDS: HEPARIN 7800 UNITS IV (22:17)
[2025-11-23 23:15] LABS: COVID-19 Antigen Negative (Negative)
--- NOTE | 2025-11-23 23:41 | HPS.HSE ---
Family Physician
-
Family Physician: Nancy Martell
Chief Complaint
-
SOB
History of Present Illness
Patient is a 70y M with PMH significant for hypertension, COPD with chronic hypoxemia, ASCVD and A_Fib / flutter s/p PFA on 11/21 who presents to ED complaining of SOB. History obtained from patient and his at the bedside. Patient
underwent PFA on 11/21 and was discharged later that evening. He felt fairly well after that procedure. He states that he has since developed gradually progressive shortness of breath. Initially this was with walking across a room and now
shortness of breath is evident even at rest. Patient denies any chest pain, but does admit to a 'tightness' across the lower chest / upper abdomen.
He notes that he has had a non-productive cough that has seemed progressive. This started a few days prior to his ablation.
He denies any fevers / chills, N/V/D, urinary complaints, etc.
Patient has O2 at home (4 lpm) which he typically uses only 'as needed' - which is not very often.
Today he was using his portable tank (4 lpm) as well as his concentrator (also at 4 lpm) and continued to feel SOB despite the combination.
This evening, patient complained to his of increased SOB. 911 was called and he was brought to the ED for further evaluation.
On arrival to the ED, patient was noted to have SpO2 = 78% on room air and he was started on BiPAP.
At the time of my examination he is awake and alert and his SpO2 is 98-99% on BiPAP.
Medical History
Past Medical History
Past Medical History: Reports Other
Additional Past Medical History:
ASCVD
Paroxysmal Atrial Fibrillation / Flutter
Hypertension
AAA (4.9 cm in May)
COPD
Chronic Hypoxemic Respiratory Failure
Pulmonary Fibrosis
NORM s/p Inspire
Impaired Fasting Glucose
GERD
Obesity
Past Surgical History: Reports Other
Additional Past Surgical History:
PFA (11/21/25)
PTCA with Stent
Lumbar Surgery x 2
Right NIKKI
Right Finger Surgery
Inspire implant
Urethroplasties
Social History
Tobacco: Former Smoker (Quit smoking 6-7 years ago. > 40 pack years total use.)
Alcohol: None
Drug: None
Personal:
Living: With Family
Family History
Family History: Not pertinent
Allergies / Home Medications
Allergies reflects when Allergies were last updated in [facility].
Home Medications with original date entered in [facility]
Allergy/Medication List:
Allergies
Allergy/AdvReac Type Severity Reaction Status Date / Time
No Known Allergies Allergy Verified 11/21/25 08:35
Home Medications
nitroglycerin 0.4 mg sublingual tablet 0.4 mg sublingual [id number] PRN chest pain 12/12/11
atorvastatin 20 mg tablet 20 mg PO QPM High Cholesterol 04/30/16
cholecalciferol (vitamin D3) 25 mcg (1,000 unit) tablet (Vitamin D3) 25 mcg PO QPM Supplement 08/02/23
budesonide 160 mcg-glycopyr 9 mcg-formot 4.8 mcg/actuation HFA inhaler (Breztri Aerosphere) 2 inh inhalation R BID Lung/Breathing Issues 05/27/25
cyanocobalamin (vitamin B-12) 1,000 mcg tablet 1,000 mcg PO QPM Supplement 05/27/25
omeprazole 20 mg tablet,delayed release 20 mg PO QPM Gastrointestinal Issue 05/27/25
therapeutic multivitamin 1 tab PO QPM Supplement 05/27/25
apixaban 5 mg tablet (Eliquis) 5 mg PO BID #60 tabs 05/29/25
aspirin 81 mg tablet 81 mg PO QPM Blood Clot Prevention/Tx 09/05/25
losartan 50 mg tablet 50 mg PO QPM Heart Disease/Condition 09/05/25
metoprolol succinate 25 mg tablet,extended release 24 hr 12.5 mg (1/2 x 25 mg) PO DAILY #30 tabs 09/07/25
coenzyme Q10 100 mg capsule 100 mg PO QPM 11/06/25
trazodone 100 mg tablet 50 mg PO HS 11/06/25
acetaminophen 325 mg tablet 650 mg PO Q6H PRN low back pain 11/21/25
Review of Systems
-
History Source: Patient
A 12 point ROS was completed and negative except as noted: Yes
Constitutional: Reports Fatigue; Denies Fever or Chills
EENT: Denies Sore Throat
Respiratory: Reports Cough and Trouble Breathing; Denies Hemoptysis
Cardiac: Denies Chest Pain, Diaphoresis, Palpitations or Syncope
Abdomen/GI: Denies Abdominal Pain, Nausea, Vomiting or Diarrhea
: Denies Dysuria, Frequency or Flank Pain
Musculoskeletal: Denies Edema
Skin: Denies Itching
Neurological: Denies Dizzy or Headache
Psych: Denies Depression or Anxiety
Physical Exam
Vital Signs
Vital Signs
Temp Pulse Resp BP Pulse Ox
98.2 F 59 17 153/71 96
11/23/25 22:00 11/23/25 23:15 11/23/25 23:15 11/23/25 23:00 11/23/25 23:15
Physical Exam
General: Other (70y M comfortable on BiPAP at present.)
HEENT: Moist mucous membranes and Other (Pos HJR)
Respiratory: Other (Bibasilar rales about 1/2 up. No wheezing.)
Cardiac: S1/S2 and Regular Rhythm; No Murmur
GI: Soft, Non Tender, Non Distended and Normal Bowel Sounds
Musculoskeletal: No Clubbing, No Cyanosis and No Edema
Neuro: AO x 3
Laboratory Results
-
11/23/25 19:28
11/23/25 19:28
Laboratory Results
APTT 31.8 Sec (23.4-35.0) 11/23/25 21:47
Total Bilirubin 0.6 mg/dl (0.2-1.3) 11/23/25 19:28
AST 72 U/L (17-59) H 11/23/25 19:28
ALT 39 U/L (0-50) 11/23/25 19:
Alkaline Phosphatase 80 U/L (38-126) 11/23/25 19:
Troponin I 6.620 ng/ml H* 11/23/25 19:28
Impression/Plan
-
A/P: Patient is a 70y M with PMH significant for ASCVD, HTN and A-Fib s/p PFA on 11/21 who presents to ED complaining of SOB.
Acute on Chronic Hypoxemic Respiratory Failure
Pulmonary Edema / CHF - Unknown Type
- Admit for further evaluation and treatment.
- SpO2 = 78% on arrival requiring BiPAP - wan to NC O2 as able. Appears comfortable at present.
- Rales on exam, pulmonary edema on CT, elevated BP and recent cardiac procedure.
- IV Lasix BID and follow for clinical improvement.
- Cardiology evaluation.
- Update Echo in AM.
- COVID / flu negative in the ED.
Pulmonary Embolism
- 'Tiny' R apical subsegmental PE seen on CTA.
- Seems unlikely that this is responsible for his clinical presentation.
- Continue IV heparin gtt overnight for small PE as well as elevated troponin (see below).
- Patient was on Eliquis prior to admission.
Abnormal Troponin
ASCVD
- Unclear etiology. ? related to CHF v recent cardiac procedure v other.
- Pain free at present.
- Continue IV heparin overnight and follow troponin to peak.
- Continue ASA.
- Cardiology evaluation as noted above.
Paroxysmal Atrial Fibrillation / Flutter
s/p PFA on 11/21/25
- Remains in sinus rhythm here in the ED.
- Cardio eval / update Echo as noted.
- Monitor on telemetry.
Benign Hypertension
- Elevated secondary to stress +/- volume overload.
- Continue home med regimen with holding parameters.
- IV Lasix and follow for improvement.
COPD
- No wheezing noted on exam.
- Continue inhalers ATC and PRN.
- Patient typically uses O2 only as needed / with exertion.
NORM
- Stable s/p Inspire implant. No longer uses CPAP.
AAA
- Stable on last check per patient.
DVT Prophylaxis: On IV Heparin at present / Eliquis [employer]INE [employer].
Code Status: Full
[2025-11-24] VITALS (22 sets, daily range): BP systolic 117–177; BP diastolic 56–90; BMI 33.0; BMI 33.1
--- NOTE | 2025-11-24 01:00 | PTCARENOTE ---
Received pt. at 0100 from ED. Pt. awake, alert, and oriented. Denies pain/discomfort. Afebrile. Heart rhythm sinus. Blood pressure normotensive. Currently on 5L nasal cannula. Lungs sound diminished. Dyspnea on exertion. Abdomen obese. Voiding in
urinal without issue. Skin as documented. Discussed plan of care with patient. Vital signs stable at this time.
--- NOTE | 2025-11-24 04:30 | PTCARENOTE ---
Pt. assessment remains unchanged. AM labs drawn. Vital signs stable at this time.
[2025-11-24 04:42] LABS: Hematocrit 35.9 % (39.0-52.0); Hemoglobin 11.1 g/dL (13.0-18.0); Mean Corp Hgb Conc. 30.9 g/dL (33.0-37.0); Mean Corpuscular Volume 74.9 fL (80.0-94.0); Platelet Count 268 10^3/uL (130-400); Red Cell Dist. Width 18.8 % (11.5-14.5)
[2025-11-24 05:11] LABS: APTT > 200 Sec (23.4-35.0)
[2025-11-24 05:22] LABS: Troponin I 3.730 ng/ml
[2025-11-24 05:34] LABS: Blood Urea Nitrogen 20 mg/dl (9-20); Calcium 8.6 mg/dl (8.4-10.2); Carbon Dioxide 20 mmol/L (22-30); Chloride 106 mmol/L (98-107); Estimated Creatinine Clearance 67 ml/min; Glucose 154 mg/dl (70-99); HDL Cholesterol 47 mg/dl; LDL Cholesterol, Calculated 57 mg/dl; Potassium 4.7 mmol/L (3.5-5.1); Sodium 135 mmol/L (135-145); Very Low Density Lipoprotein 20 mg/dl (0-30); eGFR > 60.00
[2025-11-24] MEDS: DUONEB 3 ML INH ×4 (07:40→21:01)
--- NOTE | 2025-11-24 08:07 | W.PN.HOSP.TC ---
Today's Communication/Plan
-
Echocardiogram
Resume diet if okay with cardiology
Follow-up CT chest report
Assessment / Plan
Assessment / Plan
Gen-AAOx3, NAD
HEENT-NC, AT, anicteric, clear oral mm
Neck-supple
CV-reg, no M, +S1/S2
Lungs-clear B/L
Abd-soft, NT, ND
Ext-no edema
Musculoskeletal-no cyanosis, clubbing
Skin-warm and dry
Neuro-grossly non-focal
Psych-calm, cooperative
Acute on chronic hypoxic respiratory failure -suspected to be due to acute pulmonary edema, acute heart failure exacerbation. Doubt small pulmonary embolism is causing hypoxia.
Required BiPAP on arrival, down to 5 L nasal cannula this morning. Currently getting a nebulizer treatment.
Acute heart failure preserved EF exacerbation -improving on IV Lasix. BNP only 480. Last echocardiogram was August of this year.
Acute right apical subsegmental pulmonary embolism -noted on CT. Official report pending. Already on anticoagulation with Eliquis at home. Currently on IV heparin.
Troponin elevation -without chest pain. Troponins trending down. Suspect acute nonischemic myocardial injury. Unclear if related to ablation versus heart failure versus other etiology. Cardiology to see.
COPD without exacerbation -uses oxygen only as needed at home. Continue inhalers.
History of tobacco dependence -history of 96-euln-dlhy smoking, quit about 5 or 6 years ago.
Paroxysmal atrial fibrillation/flutter -underwent ablation on November 21. Was on Eliquis and metoprolol prior to admission.
NORM
Chronic pulmonary fibrosis
GERD
Essential hypertension
Hyperlipidemia -atorvastatin.
AAA
Obesity due to excess calories
Full code
Anticipated Discharge: > 48 hours
Subjective/Interval History
-
Date of Service: November 24, 2025
Patient seen and examined. Shortness of breath is improving. No new complaints.
Objective Data
-
Labs:
Laboratory Results
11/23/25 11/24/25 11/24/25
21:47 04:18 13:15
WBC 9.8
Hgb 11.1 L
Hct 35.9 L
Plt Count 268
APTT 31.8 > 200 H* Pending
Sodium 135
Potassium 4.7
Chloride 106
Carbon Dioxide 20 L
BUN 20
Creatinine 1.2
Glucose 154 H
Calcium 8.6
Vital Signs:
Vital Signs
Temp Pulse Resp BP Pulse Ox
98.2 F 52 18 134/67 95
11/24/25 08:05 11/24/25 07:41 11/24/25 07:41 11/24/25 06:00 11/24/25 07:41
I&O
11/23/25 11/24/25 11/25/25
06:59 06:59 06:59
Intake Total 51 / 51
Output Total 1999 / 2299 300 / 300
Balance -1949 / -2249 -300 / -300
Review of Systems
-
History Source: Patient
All other systems: Reviewed and negative
--- NOTE | 2025-11-24 09:00 | CON.CAR ---
Addendum entered and electronically signed by Ivy Hurst PA-C 11/24/25 10:35:
attempted to call Dr. Callahan's office to move up follow up appointment, however office is closed today for holiday. would recommend patient call office on Thursday to arrange appt for 1 week timeframe.
Addendum entered and electronically signed by Pieter Cardona MD 11/24/25 10:19:
I saw and examined the patient.
The [employer] Operator's note was reviewed and I agree with the note.
Comment: Briefly, 70-year-old man past medical history of COPD on as needed home O2, CAD with prior PCI and atrial fibrillation status post PVI 11/21/2025 who presents with worsening dyspnea and was found to be hypoxic with an O2 sat of 78% on room
air. He was started on BiPAP at that time and is currently admitted to the medical ICU.
#Hypoxia - Multifactorial COPD +/- PE +/- CHF
Chest CTA 11/23/2025 showing small PE, small pleural effusions, as well as emphysema/interstitial fibrosis
At the time of my evaluation he was resting comfortably in bed on 4 L supplemental O2 via nasal cannula
Does not appear overtly volume overloaded but agree with a trial of IV diuretics in an attempt to improve his respiratory status
For completeness will check echo to evaluate LVEF and assess for pericardial effusion post-procedure
#AFib
Maintaining sinus rhythm following PVI on review of telemetry
Relatively bradycardia would stop metoprolol
Currently on heparin gtt ok to transition back to OAC from my standpoint
#Elevated troponin
Overall suspect nonischemic myocardial injury troponin elevation following ablation
No cardiac complaints today including no chest discomfort
ECG is not acutely ischemic
Trending down 6.6 -> 3.7. No need to check additional.
Check echo as above
Rest per Ivy Hurst
Original Note:
Consultation
Consultation Request
Date/Time Consultation Performed: 11/24/25
Requesting Provider: Dr. Figueroa
Performing Provider: Ivy Hurst PA-C for Dr. Cardona
Reason for Consultation: CHF
Medical History
-
Chief Complaint: SOB
History of Present Illness:
Mr. Crane is a 70-year-old male with past medical history of COPD, using oxygen intermittently with exertion, CAD with prior left circumflex PCI in 2011, hypertension, dyslipidemia, AAA, NORM, diagnosed with PAF 04/2025. During admission for atrial
fibrillation 08/2025, patient converted to sinus rhythm with 4.3-second pause. Due to this was referred to see electrophysiology to discuss options for A-fib treatment. Patient opted to proceed with ablation. He underwent PFA with flutter
ablation 11/21/2025. Presented back to [facility] ER last evening due to shortness of breath, not improved with use of home supplemental O2. proBNP 480. [place] to be in CHF and is being given IV Lasix, with improvement overnight. Also treated with
nebulizer and methylprednisolone in ER. Cardiology consulted for evaluation. In sinus rhythm
PMH:
Paroxysmal atrial fibrillation diagnosed April 2025
PFA/flutter ablation 11/21/25
Chronic OAC with eliquis
Coronary artery disease with LCx PCI 2011, nonobstructive CAD by cath 08/2025
COPD on 4 L of oxygen at home with exertion
NORM s/p R sided inspire device
Hypertension
Dyslipidemia
Abdominal aortic aneurysm, 4.9 cm
Past Medical History
Past Medical History: Other (in HPI)
Social History
Tobacco: Former Smoker (quit 2017)
Alcohol: None
Personal:
Living: With Family
Employment: Retired
Family History
Family History: Reviewed & Not Pertinent
Allergies / Home Medications
Allergy/AdvReac Type Severity Reaction Status Date / Time
No Known Allergies Allergy Verified 11/21/25 08:35
�Medication �Instructions �Recorded �Confirmed �Type
nitroglycerin 0.4 mg sublingual 0.4 mg sublingual [id number] PRN 12/12/11 11/23/25 History
tablet chest pain
atorvastatin 20 mg tablet 20 mg PO QPM High Cholesterol 04/30/16 11/23/25 History
cholecalciferol (vitamin D3) 25 25 mcg PO QPM Supplement 08/02/23 11/23/25 History
mcg (1,000 unit) tablet (Vitamin
D3)
budesonide 160 mcg-glycopyr 9 2 inh inhalation R BID 05/27/25 11/23/25 History
mcg-formot 4.8 mcg/actuation HFA Lung/Breathing Issues
inhaler (Breztri Aerosphere)
cyanocobalamin (vitamin B-12) 1,000 mcg PO QPM Supplement 05/27/25 11/23/25 History
1,000 mcg tablet
omeprazole 20 mg tablet,delayed 20 mg PO QPM Gastrointestinal Issue 05/27/25 11/23/25 History
release
therapeutic multivitamin 1 tab PO QPM Supplement 05/27/25 11/23/25 History
apixaban 5 mg tablet (Eliquis) 5 mg PO BID #60 tabs 05/29/25 11/23/25 Rx
aspirin 81 mg tablet 81 mg PO QPM Blood Clot 09/05/25 11/23/25 History
Prevention/Tx
losartan 50 mg tablet 50 mg PO QPM Heart 09/05/25 11/23/25 History
Disease/Condition
metoprolol succinate 25 mg 12.5 mg (1/2 x 25 mg) PO DAILY #30 09/07/25 11/23/25 Rx
tablet,extended release 24 hr tabs
coenzyme Q10 100 mg capsule 100 mg PO QPM 11/06/25 11/23/25 History
trazodone 100 mg tablet 50 mg PO HS 11/06/25 11/23/25 History
acetaminophen 325 mg tablet 650 mg PO Q6H PRN low back pain 11/21/25 11/23/25 History
Review of Systems
-
History Source: Patient and Family
All other systems: Negative unless noted
Physical Exam
Vital Signs
Temp Pulse Resp BP Pulse Ox
98.2 F 52 18 134/67 95
11/24/25 08:05 11/24/25 07:41 11/24/25 07:41 11/24/25 06:00 11/24/25 07:41
Lab Results
11/24/25 04:18
11/24/25 04:18
Troponin I 3.730 ng/ml H* 11/24/25 04:18
Jbg-[facility]-[place] Pept 480 pg/ml 11/23/25 19:28
Physical Exam
General: No Apparent Distress, Comfortable and Other (on supp O2)
HEENT: Normocephalic, Anicteric and Moist Mucous Membranes
Respiratory: Wheezes and Non Labored Respirations
Cardiac: S1/S2 and Regular Rhythm
GI: Soft
Musculoskeletal: No Clubbing, No Cyanosis and No Edema
Skin: Warm and Dry
Neuro: AO x 3
Impression / Plan
-
Primary Scourer: Dr. Callahan
Assessment:
Presentation with SOB
Acute HFpEF
Concern for COPD exacerbation
Small RUL PE by chest CTA
Elevated troponin, suspected nonischemic myocardial injury secondary to recent ablation
Paroxysmal atrial fibrillation diagnosed April 2025
PFA/flutter ablation 11/21/25
Chronic OAC with eliquis
Coronary artery disease with LCx PCI 2011, nonobstructive CAD by cath 08/2025
COPD on 4 L of oxygen at home with exertion
NORM s/p R sided inspire device
Hypertension
Dyslipidemia
Abdominal aortic aneurysm, 4.9 cm
ECHO 09/06/25: EF 60-65%, mild to mod MR, aortic sclerosis
Plan:
-Patient underwent PFA/flutter ablation 11/21/25 and presented back due to worsening SOB
-being treated for acute CHF. proBNP 480. Chest CT with small B/L pleural effusions and mild pulm edema. breathing improved with IV lasix, continue.
-chest CTA also showed evidence of small subsegmental RUL PE. treatment per primary service. was on IV heparin. eliquis has been resumed 11/24, defer adjustment in dosing to primary service
-has history of COPD as well. s/p neb and dose of steroid in ER
-wean supp O2 as able
-check echo today, last from 08/2025 as above
-in SR/SB on review of tele, follow
-continue low dose toprol
-trop was elevated at 6 on arrival and down trending. suspect secondary to recent ablation rather than primary ACS event, treating as nonischemic myocardial injury. s/p cath 08/2025 with nonobstructive CAD. no present CP
-ok for transfer to tele from cardiac standpoint
-d/w nursing. d/w patient and via telephone
Data Reviewed
-
EKG: Tracing Personally Visualized and interpreted
CT Scan: Report Reviewed by me
Medical Tests (Nuc Med, Echo etc): Report Reviewed by me
Labs: Labs Reviewed by me
Old Records: Reviewed
[2025-11-24] MEDS: TOPROL XL 12.5 MG PO (09:25)
[2025-11-24] MEDS: LASIX 40 MG IV ×2 (09:25→16:25)
--- NOTE | 2025-11-24 09:52 | PTCARENOTE ---
Heparin gtt stopped, plan to restart Eliquis. Diet ordered. Cancelled troponin and PTT in afternoon per Cardiology PA Mckayla Hurst.
Patient assisted into the chair, minimal assist. Became SOB. Sp02 dropped to 76% while 02 off. NC placed back on 5L, Sp02 85-87%. RT set up midflow NC. Increased to 7L MF NC, Sp02 90-92%. Dr. Figueroa updated on events. Goal Sp02 >88% as pt has hx
COPD.
Plan for ECHO today. updated via phone by Cardiology PA.
Call schneider within reach. Patient eating breakfast. Aware to keep track of I/Os.
--- NOTE | 2025-11-24 10:14 | CM ---
Chart reviewed and spoke with pt at ICU bedside
He lives in [place] with his Isabell ( 3 rd from his childhood) and grandson 16 year old ( custody from one of his 4 dtrs)
Independent with ADLs and ambulation
home O2 4 LPM for exertion
Has 4 dtrs
is supportive
PCP Nancy Segura
RX [facility] in [place]
no hx of VN nor SNF
DCP is to go home once medically stable
Scheduled for echo , iv lasix today
Family can drive him home at [place]
CM will continue to follow up for any dcp needs
[2025-11-24] MEDS: ELIQUIS 5 MG PO ×2 (11:15→19:54)
--- NOTE | 2025-11-24 11:24 | PTCARENOTE ---
Patient found in bathroom sitting on toilet with oxygen off, tele monitor off, and Sp02 monitor off. Dyspnea noted. Patient stated he needed to use the restroom urgently and did not have time to press call schneider for assistance. Oxygen and tele
monitor applied immediately. Patient was thoroughly educated on the importance of utilizing call schneider for assistance. Assisted into the chair with chair alarm on. Call schneider left within reach. Again, the patient was reminded on fall precautions and
how to utilize call schneider. Patient apologized.
--- NOTE | 2025-11-24 13:44 | PTCARENOTE ---
Patient had about 15 beats of Vtach on patient monitor. Patient sitting up in the chair. Patient stated he felt a 'few pokes in his chest' while the monitor was alarming. BP 151/56 MAP 83. ANAHY Tobias made aware. Will check mag level.
and grandson at bedside. Call schneider within reach.
[2025-11-24 14:28] LABS: Magnesium 1.6 mg/dl (1.6-2.3)
[2025-11-24] MEDS: MAGNESIUM SULFATE 50 IV (16:26)
[2025-11-24] MEDS: COZAAR 50 MG PO (17:26)
[2025-11-24] MEDS: LIPITOR 20 MG PO (17:26)
[2025-11-24] MEDS: ASPIR LOW (ENTERIC COATED) 81 MG PO (17:26)
--- NOTE | 2025-11-24 20:00 | PTCARENOTE ---
Received pt. at 1900. Pt. currently in bed. Awake, alert, and oriented. Denies pain/discomfort. Afebrile. Heart rhythm sinus. Blood pressure normotensive. Currently on 4L nasal cannula. Lungs sound diminished. Abdomen obese. PO diet is ordered, good
appetite. Voiding in urinal. Skin as documented. Discussed plan of care with patient. Vital signs stable at this time.
[2025-11-24] MEDS: DESYREL 50 MG PO (21:35)
[2025-11-25] VITALS (11 sets, daily range): BP systolic 84–135; BP diastolic 58–105; BMI 32.3
[2025-11-25 03:28] LABS: Hematocrit 34.1 % (39.0-52.0); Hemoglobin 11.1 g/dL (13.0-18.0); Mean Corp Hgb Conc. 32.6 g/dL (33.0-37.0); Mean Corpuscular Volume 75.3 fL (80.0-94.0); Platelet Count 254 10^3/uL (130-400); Red Cell Dist. Width 18.8 % (11.5-14.5)
[2025-11-25 03:53] LABS: ALT (SGPT) 32 U/L (0-50); AST (SGOT) 39 U/L (17-59); Albumin 3.9 g/dl (3.5-5.0); Alkaline Phosphatase 66 U/L (38-126); Blood Urea Nitrogen 30 mg/dl (9-20); Calcium 8.8 mg/dl (8.4-10.2); Carbon Dioxide 27 mmol/L (22-30); Chloride 100 mmol/L (98-107); Estimated Creatinine Clearance 62 ml/min; Glucose 120 mg/dl (70-99); Potassium 3.9 mmol/L (3.5-5.1); Sodium 136 mmol/L (135-145); Total Protein 6.5 g/dl (6.3-8.2); eGFR 59.84
[2025-11-25] MEDS: DUONEB 3 ML INH ×4 (07:19→21:04)
--- NOTE | 2025-11-25 07:35 | W.PN.HOSP.TC ---
Today's Communication/Plan
-
Wean down oxygen
Continue diuretics
Add Tessalon
Assessment / Plan
Assessment / Plan
Gen-AAOx3, NAD
HEENT-NC, AT, anicteric, clear oral mm
Neck-supple
CV-reg, no M, +S1/S2
Lungs-clear B/L
Abd-soft, NT, ND
Ext-no edema
Musculoskeletal-no cyanosis, clubbing
Skin-warm and dry
Neuro-grossly non-focal
Psych-calm, cooperative
Acute on chronic hypoxic respiratory failure -suspected to be due to acute pulmonary edema, acute heart failure exacerbation in the setting of chronic lung disease. Doubt small pulmonary embolism is causing hypoxia.
Oxygenation improving, now on 4 L. Wean down as able. Currently getting a nebulizer treatment.
Prior to admission, he had 4 L of oxygen available at home only to be used as needed. Patient stated that he did not need it that often.
Discussed in detail with patient that he has very little reserve and cannot tolerate any amount of extra fluid in his lungs given his chronic lung disease.
Acute heart failure preserved EF exacerbation -improving on IV Lasix. BNP only 480. Echocardiogram shows LVEF 58%, moderately dilated with low normal systolic function, mild to moderate MR. Moderate TR. Estimated PA pressure 78 mmHg. No
significant pericardial effusion.
Heart failure is improving clinically. Weight is coming down. Shortness of breath improved.
Acute small right apical subsegmental pulmonary embolism -noted on CT. Continue Eliquis.
Troponin elevation -without chest pain. Troponins trending down. Suspect acute nonischemic myocardial injury. Unclear if related to ablation versus heart failure versus other etiology. Cardiology to see.
COPD without exacerbation -uses oxygen only as needed at home. Continue inhalers. I hear no wheezing on exam. No indication for steroids or antibiotics. He has had a cough for the past 3 weeks, characterized as dry. Tessalon ordered.
History of tobacco dependence -history of [id number] smoking, quit about 5 or 6 years ago.
Paroxysmal atrial fibrillation/flutter -underwent ablation on November 21. Was on Eliquis and metoprolol prior to admission. Metoprolol discontinued by cardiology for bradycardia.
NORM
Chronic pulmonary fibrosis
GERD
Essential hypertension -stable.
Hyperlipidemia -atorvastatin.
AAA
Obesity due to excess calories
Full code
Anticipated Discharge: Within 24 hours
Subjective/Interval History
-
Date of Service: November 25, 2025
Patient seen and examined. States shortness of breath is improved. Complaining of dry cough.
Objective Data
-
Labs:
Laboratory Results
11/25/25
03:17
WBC 10.5
Hgb 11.1 L
Hct 34.1 L
Plt Count 254
Sodium 136
Potassium 3.9
Chloride 100
Carbon Dioxide 27
BUN 30 H
Creatinine 1.3
Glucose 120 H
Calcium 8.8
Total Bilirubin 0.8
AST 39
ALT 32
Alkaline Phosphatase 66
Vital Signs:
Vital Signs
Temp Pulse Resp BP Pulse Ox
97.9 F 50 14 135/61 94
11/25/25 03:42 11/25/25 07:22 11/25/25 07:22 11/25/25 04:00 11/25/25 07:22
I&O
11/24/25 11/25/25 11/26/25
06:59 06:59 06:59
Intake Total 51 / 51 1110 / 1110
Output Total 1999 / 2299 3050 / 305
Balance -1948 / -2248 -1939 /
Review of Systems
-
History Source: Patient
All other systems: Reviewed and negative
--- NOTE | 2025-11-25 08:05 | PTCARENOTE ---
Assumed care of pt at 0715 following shift report. Pt awake and resting quietly in bed watching TV. Pt denies c/o pain or SOB. Reports 'I'm going home today'. When pt made aware that the decision for d/c is made by the MD when it is believed that pt
is improved/safe to send home, pt responded 'I'm going home today, regardless'. Physical assessment completed as documented. Hygiene/comfort care provided. Call jennie w/in pt reach and safe environment maintained.
[2025-11-25] MEDS: LASIX 40 MG IV ×2 (09:00→16:34)
[2025-11-25] MEDS: ELIQUIS 5 MG PO ×2 (09:03→19:39)
[2025-11-25] MEDS: KCL 20 MEQ PO (09:03)
[2025-11-25 09:30] LABS: Magnesium 1.8 mg/dl (1.6-2.3)
--- NOTE | 2025-11-25 10:30 | PTCARENOTE ---
Pt rang call schneider c/o significant abdominal 'cramping'. Lt upper to mid quadrant. Pt finished his breakfast about 1.5hr ago. Has had BM this AM that he reported as being 'normal' and bowel sounds are hyperactive x4. Abdomen is obese/round and
slightly distended with a specific location that pt indicates the pain is located at. Pt reports that the cramping is from 'moving around to use the urinal' and that it happened yesterday as well. Changing position in bed (sitting upright) does seem
to provide some relief. TT to Dr Figueroa w/ pt's complaint and assessment findings. No new orders at this time.
--- NOTE | 2025-11-25 11:45 | W.PN.CARDCBS ---
Today's Communication / Plan
-
Continue IV Lasix
Wean oxygen as able
Impression / Plan
-
Primary Photo Technician: Dr. Callahan
Assessment:
Presentation with SOB
Acute HFpEF
Concern for COPD exacerbation
Small RUL PE by chest CTA
Elevated troponin, suspected nonischemic myocardial injury secondary to recent ablation
Paroxysmal atrial fibrillation diagnosed April 2025
PFA/flutter ablation 11/21/25
Chronic OAC with eliquis
Coronary artery disease with LCx PCI 2011, nonobstructive CAD by cath 08/2025
COPD on 4 L of oxygen at home with exertion
NORM s/p R sided inspire device
Hypertension
Dyslipidemia
Abdominal aortic aneurysm, 4.9 cm
ECHO 09/06/25: EF 60-65%, mild to mod MR, aortic sclerosis
Plan:
-Patient underwent PFA/flutter ablation 11/21/25 and presented back due to worsening SOB. Likely multifactorial: Acute heart failure with preserved ejection fraction, COPD, PE.
-Being treated for acute CHF. proBNP 480. Chest CT with small B/L pleural effusions and mild pulm edema.
-Still requiring 4L supplemental O2 wean as able.
-Continue IV Lasix in an attempt to improve his respiratory status.
-Follow daily weights, Cr/lytes
-Echo here showing preserved LV function, severely elevated estimated pulmonary artery pressures and dilated right ventricle
-trop was elevated at 6 on arrival and down trending. suspect secondary to recent ablation rather than primary ACS event, treating as nonischemic myocardial injury. s/p cath 08/2025 with nonobstructive CAD. no present CP
-In sinus rhythm on review of tele
-d/w patient and via telephone
Progress Note - Photo Technician
Subjective
Date of Service: November 25, 2025
No acute overnight events. Remains in the medical ICU on 4 L supplemental oxygen. Tells me he has had a nonproductive cough today. Otherwise feels that he is back to his baseline and is anxious to leave the hospital.
Objective
Labs:
11/25/25 03:17
11/25/25 03:17
Labs
Hgb 11.1 g/dL (13.0-18.0) L 11/25/25 03:17
Hct 34.1 % (39.0-52.0) L 11/25/25 03:17
Plt Count 254 10^3/uL (130-400) 11/25/25 03:17
APTT Cancelled 11/24/25 13:15
Sodium 136 mmol/L (135-145) 11/25/25 03:17
Potassium 3.9 mmol/L (3.5-5.1) 11/25/25 03:17
BUN 30 mg/dl (9-20) H 11/25/25 03:17
Creatinine 1.3 mg/dL (0.7-1.3) 11/25/25 03:17
Glucose 120 mg/dl (70-99) H 11/25/25 03:17
Troponins
11/23/25 11/24/25 11/24/25
19:28 00:51 04:18
Troponin I 6.620 H* Cancelled 3.730 H*
11/24/25
12:51
Troponin I Cancelled
Vital Signs and I&O:
Vital Signs
Temp Pulse Resp BP Pulse Ox
97.5 F 64 20 127/65 97
11/25/25 11:38 11/25/25 11:00 11/25/25 10:58 11/25/25 10:33 11/25/25 11:00
Vital Signs
Temp Pulse Resp BP Pulse Ox
97.5 F 64 20 127/65 97
11/25/25 11:38 11/25/25 11:00 11/25/25 10:58 11/25/25 10:33 11/25/25 11:00
Intake & Output
11/23/25 11/24/25 11/25/25 11/26/25
06:59 06:59 06:59 06:59
Intake Total 1110 / 111
Output Total 1999 305 / 3049
Balance -1948 / -2248 -1939 /
Physical Exam
Physical Exam
Gen: NAD, AAOx3
HEENT: NC/AT, sclera anicteric
Neck: No JVD
CV: RRR, NL s1/s2, no M/R/G
Lungs: Crackles at bases bilaterally on 4 L nasal cannula
Abd: S/ND
Ext: No LE edema
Skin: Warm, dry
Neuro: Non-focal
--- NOTE | 2025-11-25 14:30 | PTCARENOTE ---
Pt sitting OOB in chair eating lunch. O2 remains at 4l/min w/ Pox mid 90's when at rest, Pox drops to low 80's w/ activity. No new complaints. Denies further abdominal 'cramping' at this time. No additional changes from previous assessment findings.
[2025-11-25] MEDS: TYLENOL 650 MG PO (16:33)
--- NOTE | 2025-11-25 16:40 | PTCARENOTE ---
Pt sitting OOB in chair visiting w/ getting ready to eat dinner that was just delivered. Pt c/o Lt flank pain- 'my cramping has relocated to my back'. Pt has been using urinal to void- denies pain w/ urination and denies any other symptoms. Pt
requesting and given Tylenol 650mg PO for discomfort.
[2025-11-25] MEDS: COZAAR PO (18:10)
[2025-11-25] MEDS: LIPITOR 20 MG PO (18:11)
[2025-11-25] MEDS: ASPIR LOW (ENTERIC COATED) 81 MG PO (18:11)
[2025-11-25] MEDS: DESYREL 50 MG PO (22:01)
[2025-11-26] VITALS (7 sets, daily range): BP systolic 99–143; BP diastolic 58–78; BMI 32.1
[2025-11-26 04:28] LABS: Hematocrit 35.9 % (39.0-52.0); Hemoglobin 11.4 g/dL (13.0-18.0); Mean Corp Hgb Conc. 31.8 g/dL (33.0-37.0); Mean Corpuscular Volume 74.9 fL (80.0-94.0); Platelet Count 256 10^3/uL (130-400); Red Cell Dist. Width 18.8 % (11.5-14.5)
[2025-11-26 04:40] LABS: ALT (SGPT) 29 U/L (0-50); AST (SGOT) 35 U/L (17-59); Albumin 3.8 g/dl (3.5-5.0); Alkaline Phosphatase 66 U/L (38-126); Blood Urea Nitrogen 32 mg/dl (9-20); Calcium 9.3 mg/dl (8.4-10.2); Carbon Dioxide 27 mmol/L (22-30); Chloride 99 mmol/L (98-107); Estimated Creatinine Clearance 61 ml/min; Glucose 122 mg/dl (70-99); Potassium 3.9 mmol/L (3.5-5.1); Sodium 134 mmol/L (135-145); Total Protein 6.4 g/dl (6.3-8.2); eGFR 59.84
--- NOTE | 2025-11-26 07:00 | PTCARENOTE ---
Received patient A&Ox4, Sinus jose luis around 57s , BP WNL, 4L NC, GI/ continent.
[2025-11-26] MEDS: DUONEB 3 ML INH ×2 (07:39→11:16)
--- NOTE | 2025-11-26 08:02 | W.PN.HOSP.TC ---
Addendum entered and electronically signed by Fernandez Figueroa DO 11/26/25 10:57:
Spoke with cardiology. Okay to discharge home today on oral Lasix 40 mg daily.
Will need continuous home oxygen on discharge.
Patient is in need of oxygen at 4 liters/minute via nasal cannula continuously due to pulse oximetry of 88% on room air at rest. Oxygen will help to improve hypoxemia. Patient is mobile within the home. DuoNeb therapy has been tried and is
ineffective in treating hypoxemia related symptoms. Oxygen is needed to improve symptoms.
Outpatient follow-up with PCP, cardiology, pulmonary.
Original Note:
Today's Communication/Plan
-
Continue current care
Assessment / Plan
Assessment / Plan
Gen-AAOx3, NAD
HEENT-NC, AT, anicteric, clear oral mm
Neck-supple
CV-reg, no M, +S1/S2
Lungs-clear B/L
Abd-soft, NT, ND
Ext-no edema
Musculoskeletal-no cyanosis, clubbing
Skin-warm and dry
Neuro-grossly non-focal
Psych-calm, cooperative
Acute on chronic hypoxic respiratory failure -suspected to be due to acute pulmonary edema, acute heart failure exacerbation in the setting of chronic lung disease. Doubt small pulmonary embolism is causing hypoxia.
Oxygenation improving, now on 4 L. Wean down as able.
Prior to admission, he was not on continuous oxygen at home, but did have oxygen available to be used as needed. He stated that he did not need it often.
Discussed in detail with patient that he has very little reserve and cannot tolerate any amount of extra fluid in his lungs given his chronic lung disease.
Acute heart failure preserved EF exacerbation -improving on IV Lasix. Was not on diuretics prior to admission. BNP only 480. Echocardiogram shows LVEF 58%, moderately dilated with low normal systolic function, mild to moderate MR. Moderate TR.
Estimated PA pressure 78 mmHg. No significant pericardial effusion.
Heart failure is improving clinically. Weight down 3 kg. Shortness of breath improved.
Acute small right apical subsegmental pulmonary embolism -noted on CT. Continue Eliquis.
Troponin elevation -without chest pain. Troponins trending down. Suspect acute nonischemic myocardial injury. Unclear if related to ablation versus heart failure versus other etiology. Cardiology to see.
COPD without exacerbation -uses oxygen only as needed at home. Continue inhalers. I hear no wheezing on exam. No indication for steroids or antibiotics. He has had a cough for the past 3 weeks, characterized as dry. Tessalon ordered.
History of tobacco dependence -history of [id number] smoking, quit about 5 or 6 years ago.
Paroxysmal atrial fibrillation/flutter -underwent ablation on November 21. Was on Eliquis and metoprolol prior to admission. Metoprolol discontinued by cardiology for bradycardia.
NORM
Chronic pulmonary fibrosis
GERD
Essential hypertension -stable. Metoprolol discontinued due to bradycardia. TSH 1.09.
Hyperlipidemia -atorvastatin.
AAA
Obesity due to excess calories
Full code
Anticipated Discharge: 24 - 48 hours
Subjective/Interval History
-
Date of Service: November 26, 2025
Patient seen and examined. Does have mild abdominal wall cramping.
Objective Data
-
Labs:
Laboratory Results
11/26/25 11/26/25
04:11 04:12
WBC 8.3
Hgb 11.4 L
Hct 35.9 L
Plt Count 256
Sodium 134 L
Potassium 3.9
Chloride 99
Carbon Dioxide 27
BUN 32 H
Creatinine 1.3
Glucose 122 H
Calcium 9.3
Total Bilirubin 1.1
AST 35
ALT 29
Alkaline Phosphatase 66
Vital Signs:
Vital Signs
Temp Pulse Resp BP Pulse Ox
98 F 58 16 122/69 98
11/26/25 07:36 11/26/25 07:42 11/26/25 07:42 11/26/25 06:00 11/26/25 07:42
I&O
11/25/25 11/26/25 11/27/25
06:59 06:59 06:59
Intake Total 1110 / 1110 630 / 630
Output Total 3050 / 3050 1825 / 1825
Balance -1940 / -1940 -1195 / -1195
Review of Systems
-
History Source: Patient
All other systems: Reviewed and negative
[2025-11-26] MEDS: LASIX 40 MG IV (08:07)
[2025-11-26] MEDS: KCL 20 MEQ PO (08:15)
[2025-11-26] MEDS: ELIQUIS 5 MG PO (08:15)
[2025-11-26] MEDS: TYLENOL 650 MG PO (10:05)
--- NOTE | 2025-11-26 10:55 | W.DS.TRANS ---
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
-
Discharge Instructions:
Discharge Diagnosis/Procedures Acute hypoxic respiratory failure, acute heart
failure exacerbation, small pulmonary embolism,
COPD
Diet Low Cholesterol,Low Fat
Activity As tolerated
Driving Restrictions As prior to admission
Bathing Restrictions None
Instructions:
Stand-Alone Forms:
Changes to Home Medications: Yes
Discharge Medications:
DC Medications w/original date entered in [facility]
nitroglycerin 0.4 mg sublingual tablet 0.4 mg sublingual [id number] PRN chest pain 12/12/11
atorvastatin 20 mg tablet 20 mg PO QPM High Cholesterol 04/30/16
cholecalciferol (vitamin D3) 25 mcg (1,000 unit) tablet (Vitamin D3) 25 mcg PO QPM Supplement 08/02/23
budesonide 160 mcg-glycopyr 9 mcg-formot 4.8 mcg/actuation HFA inhaler (Breztri Aerosphere) 2 inh inhalation R BID Lung/Breathing Issues 05/27/25
cyanocobalamin (vitamin B-12) 1,000 mcg tablet 1,000 mcg PO QPM Supplement 05/27/25
omeprazole 20 mg tablet,delayed release 20 mg PO QPM Gastrointestinal Issue 05/27/25
therapeutic multivitamin 1 tab PO QPM Supplement 05/27/25
apixaban 5 mg tablet (Eliquis) 5 mg PO BID #60 tabs 05/29/25
aspirin 81 mg tablet 81 mg PO QPM Blood Clot Prevention/Tx 09/05/25
losartan 50 mg tablet 50 mg PO QPM Heart Disease/Condition 09/05/25
coenzyme Q10 100 mg capsule 100 mg PO QPM Supplement 11/06/25
trazodone 100 mg tablet 50 mg PO HS Sleep 11/06/25
acetaminophen 325 mg tablet 650 mg PO Q6H PRN low back pain 11/21/25
furosemide 40 mg tablet (Lasix) 40 mg PO DAILY #30 tabs 11/26/25
ipratropium 0.5 mg-albuterol 3 mg (2.5 mg base)/3 mL nebulization soln 3 ml inhalation Q4H PRN shortness of breath or wheezing #90 mL 11/26/25
potassium chloride 20 mEq tablet,extended release(part/cryst) (Klor-Con M) 20 meq PO DAILY #30 tabs 11/26/25
Home Medication Changes
Stop metoprolol
Pending Results: No
--- NOTE | 2025-11-26 11:40 | CM ---
Pt for discharge, is bringing O2 portable concentrator and will transport him home. IMM reviewed and signed. No other CM needs at this time.
--- NOTE | 2025-11-26 12:35 | W.PN.CARDCBS ---
Today's Communication / Plan
-
Okay to transition to oral Lasix 40 mg daily
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
We will sign off, please recall as needed
Impression / Plan
-
Primary Product Handler: Dr. Callahan
Assessment:
Presentation with SOB
Acute HFpEF
Concern for COPD exacerbation
Small RUL PE by chest CTA
Elevated troponin, suspected nonischemic myocardial injury secondary to recent ablation
Paroxysmal atrial fibrillation diagnosed April 2025
PFA/flutter ablation 11/21/25
Chronic OAC with eliquis
Coronary artery disease with LCx PCI 2011, nonobstructive CAD by cath 08/2025
COPD on 4 L of oxygen at home with exertion
NORM s/p R sided inspire device
Hypertension
Dyslipidemia
Abdominal aortic aneurysm, 4.9 cm
ECHO 09/06/25: EF 60-65%, mild to mod MR, aortic sclerosis
Plan:
-Patient underwent PFA/flutter ablation 11/21/25 and presented back due to worsening SOB. Likely multifactorial: Acute heart failure with preserved ejection fraction, COPD, PE.
-Being treated for acute CHF. proBNP 480. Chest CT with small B/L pleural effusions and mild pulm edema.
-Still requiring 4L supplemental O2 wean as able. Suspect this is more so related to underlying COPD.
-Echo here showing preserved LV function, severely elevated estimated pulmonary artery pressures and dilated right ventricle
-Okay to transition to oral diuretic. Would discharge on Lasix 40 mg daily.
-trop was elevated at 6 on arrival and down trending. suspect secondary to recent ablation rather than primary ACS event, treating as nonischemic myocardial injury. s/p cath 08/2025 with nonobstructive CAD. has not been reporting chest pain.
-In sinus rhythm on review of tele
Stable for discharge from my perspective on 40 mg daily p.o. Lasix with plan to follow-up with his primary dinkey press operator at [facility]
Discussed with hospitalist
Progress Note - Product Handler
Subjective
Date of Service: November 26, 2025
No acute overnight events. Patient tells me his breathing is comfortable and at baseline. Still on 4 L supplemental O2. No chest discomfort. Maintaining sinus rhythm on review of telemetry.
Objective
Labs:
11/26/25 04:11
11/26/25 04:12
Labs
Hgb 11.4 g/dL (13.0-18.0) L 11/26/25 04:11
Hct 35.9 % (39.0-52.0) L 11/26/25 04:11
Plt Count 256 10^3/uL (130-400) 11/26/25 04:11
APTT Cancelled 11/24/25 13:15
Sodium 134 mmol/L (135-145) L 11/26/25 04:12
Potassium 3.9 mmol/L (3.5-5.1) 11/26/25 04:12
BUN 32 mg/dl (9-20) H 11/26/25 04:12
Creatinine 1.3 mg/dL (0.7-1.3) 11/26/25 04:12
Glucose 122 mg/dl (70-99) H 11/26/25 04:12
Troponins
11/23/25 11/24/25 11/24/25
19: 00:51 04:18
Troponin I 6.620 H* Cancelled 3.730 H*
11/24/25
12:51
Troponin I Cancelled
Vital Signs and I&O:
Vital Signs
Temp Pulse Resp BP Pulse Ox
97.6 F 66 18 117/75 92
11/26/25 11:23 11/26/25 11:18 11/26/25 11:18 11/26/25 08:07 11/26/25 11:18
Vital Signs
Temp Pulse Resp BP Pulse Ox
97.6 F 66 18 117/75 92
11/26/25 11:23 11/26/25 11:18 11/26/25 11:18 11/26/25 08:07 11/26/25 11:18
Intake & Output
11/24/25 11/25/25 11/26/25 11/27/25
06:59 06:59 06:59 06:59
Intake Total 51 / 51 1110 / 1110 630 / 630 480 / 480
Output Total 1999 / 2299 3050 / 3050 1825 / 1825 700 / 700
Balance -1949 / -2249 -1940 / -1940 -1195 / -1195 -220 / -220
Physical Exam
Physical Exam
Gen: NAD, AAOx3
HEENT: NC/AT, sclera anicteric
Neck: No JVD
CV: RRR, NL s1/s2
Lungs: CTAB on 4L NC
Abd: S/ND
Ext: No LE edema
Skin: Warm, dry
Neuro: Non-focal
--- NOTE | 2025-11-26 13:00 | PTCARENOTE ---
Discharged patient home, education packets provided to both the patient and his , emphasized the importance of wearing O2 at home, all questions answered, all belongings taken home.
== END 2025-11-26 12:59 | disposition home or self-care (01) | DRG 291 ==
LOC: ICU 23:41
PROVIDERS: Physician Assistant Medical; ADMITTING PHYSICIAN Hospitalist; ATTENDING PHYSICIAN Hospitalist; CONSULT PHYSICIAN Internal Medicine Cardiovascular Disease; EMERGENCY PHYSICIAN Student in an Organized Health Care Education/Training Program; FAMILY PHYSICIAN Nurse Practitioner Family
PROC: 5A09357 Assistance with Respiratory Ventilation, Less than 24 Consecutive Hours, Continuous Positive Airway Pressure (ICD-10-PCS; 2025-11-23)
DX: I11.0 Hypertensive heart disease with heart failure (principal); I26.93 Single subsegmental thrombotic pulmonary embolism without acute cor pulmonale; I50.31 Acute diastolic (congestive) heart failure; J96.21 Acute and chronic respiratory failure with hypoxia; I5A Non-ischemic myocardial injury (non-traumatic); J44.9 Chronic obstructive pulmonary disease, unspecified; I48.0 Paroxysmal atrial fibrillation; G47.33 Obstructive sleep apnea (adult) (pediatric); K21.9 Gastro-esophageal reflux disease without esophagitis; I71.40 Abdominal aortic aneurysm, without rupture, unspecified; J84.10 Pulmonary fibrosis, unspecified; E66.09 Other obesity due to excess calories; I25.10 Atherosclerotic heart disease of native coronary artery without angina pectoris; Z11.52 Encounter for screening for COVID-19; Z68.32 Body mass index [BMI] 32.0-32.9, adult; Z79.01 Long term (current) use of anticoagulants; Z79.82 Long term (current) use of aspirin; Z87.891 Personal history of nicotine dependence; Z95.5 Presence of coronary angioplasty implant and graft
CPT/HCPCS: 71275; 80048; 80053; 80061; 82805; 83735; 83880; 84443; 84484; 85025; 85027; 85730; 87502; 87811; 93005; 93306; 94640; 94644; 94660; 96365; 96366; 96375; 99291; Q9967